=== PATIENT | female | born 1955 | race Caucasian/White ===

== ENCOUNTER → 2024-01-08 10:13 | Outpatient (REF) | payer MEDICARE, OTHER, SELFPAY ==
[2024-01-08 11:03] LABS: Blood Urea Nitrogen 11 mg/dl (7-17); Calcium 9.3 mg/dl (8.4-10.2); Carbon Dioxide 25 mmol/L (22-30); Chloride 101 mmol/L (98-107); Glucose 143 mg/dl (70-99); Iron 115 ug/dl (37-170); Potassium 4.6 mmol/L (3.5-5.1); Sodium 134 mmol/L (135-145); eGFR > 60.00
[2024-01-08 12:10] LABS: Glycohemoglobin (HgbA1c) 8.5 % (4.0-5.6)
== END ==
LOC: OLABN 10:13
PROVIDERS: ATTENDING PHYSICIAN Internal Medicine Geriatric Medicine
DX: E11.9 Type 2 diabetes mellitus without complications (principal); D64.9 Anemia, unspecified
CPT/HCPCS: 36415; 80048; 83036; 83540

== ENCOUNTER 2024-01-21 14:14 | Inpatient (IN) | payer MEDICARE, OTHER, SELFPAY ==
[2024-01-21 10:43] VITALS: BMI 32.3
[2024-01-21 10:48] VITALS: BP 142/60
--- NOTE | 2024-01-21 10:52 | ED.GENMED ---
History of Present Illness
General
Chief Complaint: Fall
Time Seen by Provider: 01/21/24 10:41
Travel History
Have you had any contact with someone who has COVID-19?: No
Do you have any symptoms of coronavirus? Fever > 100 degrees, chills, cough, shortness of breath, sore throat, loss of taste or smell, muscle aches, or headache?: No
History of Present Illness
History of Present Illness:
68-year-old female with history of mild dementia, prior stroke with resultant mild aphasia and right facial droop, atrial fibrillation on Eliquis, hypertension, hyperlipidemia, insulin-dependent diabetes, peripheral arterial disease status post
right BKA, and ovarian cancer in remission presents to the emergency department for evaluation of right hip pain after a fall. Was attempting to ambulate with a rollator and lost her balance, fell directly onto the buttock. She denies any head
strike or loss of consciousness. She did take her Eliquis this morning. Reporting severe pain
Past History
Past History
ED Past Medical History: Arrthythmia (Atrial fibrillation), CAD, Cancer (Ovarian cancer in 2007), CVA, GERD, Hypercholesterolemia, IDDM, AR, Psychiatric (Depression) and Other (Slight Dementia, DVT, PVD, UTI, Left foot ulcer, anemia, )
ED Past Surgical History: Cardiac (Stents x 4), Cholecystectomy, Gynecological (Hysterectomy), Orthopedic (Bilateral rotator Cuff, laminectomy, Right BKA) and Other (IVC filter)
Social History
Tobacco: Non-smoker
Alcohol: None
Drug: None
Personal:
Living: [facility] (Currently living with son until her apartment is ready in December 2017)
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
Review of Systems
Review of Systems
Allergies reviewed?: Yes
All Other Systems: ROS reviewed and negative except as documented in HPI and ROS
Phy Exam
Physical Exam
Physical Exam:
GEN: Well appearing, NAD, WDWN
Eyes: PERRLA, EOMs intact, no scleral icterus
HENT: NCAT, oral mucosa moist
Lungs: CTAB, no wheezes, rales, rhonchi, normal chest wall excursion
Cardiac: RRR, no M/R/G, no peripheral edema. Radial pulses 2+ bilat
Abdomen: S, NT, ND, NABS, no masses or hepatosplenomegaly
Neuro: AO x 3
MSK: No gross deformity or ecchymosis. Slight shortening of the right lower extremity however exam is limited due to presence of below the knee amputation
Skin: No rashes, petechiae. Normal color, no pallor or jaundice.
Psych: Calm, cooperative, proper hygiene
Course
Orders/Labs/Results
Orders:
Orders
01/21/24 10:50
CT Head W/o Iv Contrast Urgent
Comment:
Reason For Exam: fall on Eliquis
Fentanyl Citrate/Pf [Sublimaze] 50 mcg IV NOW STA
CR Hip - RT w/wo Pel 2-3 Vw* Urgent
Comment:
Reason For Exam: fall, R hip injury
Include a pelvis x-ray?: Yes
01/21/24 11:02
Complete Blood Count/With Diff Urgent
Comprehensive Metabolic Panel Urgent
01/21/24 11:58
HYDROmorphone [Dilaudid] 0.5 mg IV NOW STA
01/21/24 12:01
EKG [Electrocardiogram (*1)] Urgent
Reason for Study: PreOp
Abnormal Lab Results
01/21/24
11:02
RBC 4.18 L 10^6/uL
(4.20-5.40)
Hct 36.9 L %
(37.0-47.0)
Sodium 132 L mmol/L
(135-145)
Chloride 97 L mmol/L
(98-107)
Creatinine 0.4 L mg/dL
(0.6-1.0)
Glucose 220 H mg/dl
(70-99)
AST 38 H U/L
(14-36)
01/21/24 11:02
01/21/24 11:02
Vital Signs
Initial and Last Documented VS:
Initial Vital Signs
Temp Pulse Resp BP Pulse Ox
98.4 F 98 24 142/60 97
01/21/24 10:48 01/21/24 10:48 01/21/24 10:48 01/21/24 10:48 01/21/24 10:48
Last Documented Vital Signs
Temp Pulse Resp BP Pulse Ox
98.4 F 98 24 142/60 97
01/21/24 10:48 01/21/24 10:48 01/21/24 10:48 01/21/24 10:48 01/21/24 10:53
MDM/Problems Addressed
MDM/Problems Addressed:
Imaging identifies a comminuted inotrope fracture. Will be admitted to the hospital service for further management, orthopedics consulted for eventual operative intervention
*Critical Care Note
Total Time (30-74mins, 75-104mins- exclusive of procedures): Not Applicable
ED Attending Note
-
Portions of this chart may have been created with voice recognition software.� Occasional wrong word or��sound alike� substitutions may have occurred due to the inherent limitations of voice recognition software.
Discharge Plan
Departure
Patient Disposition: Admit
Date of Disposition: 01/21/24
Time of Disposition: 11:57
Admit to: Med/Surg
Presentation/result/management discussed w/ accepting MD/DO: Hospitalist
Discharge Problem:
Closed intertrochanteric fracture of right femur
Prescriptions:
No Action
acetaminophen 325 MG tablet
650 mg PO Q4HPRN MDD 3000 mg PRN (Reason: mild pain/fever>100.4)
Eliquis 5 MG tablet
5 mg PO BID@0830,1830
Patient Comments:
nitroglycerin 0.4 MG tablet, sublingual
0.4 mg sublingual [id number] PRN (Reason: chest pain)
diltiazem HCl 180 MG capsule,extended release 24hr
180 mg PO DAILY@829
pravastatin 40 mg Tablet
40 mg PO DAILY@1829
epinephrine 0.3 mg/0.3 mL Auto-Injector
0.3 mg IM DAILYPRN PRN (Reason: ANAPHYLAXIS)
insulin glargine 100 unit/mL Solution
13 unit SC DAILY@1829
magnesium hydroxide [Milk of Magnesia] 400 mg/5 mL Suspension
30 ml PO HSPRN PRN (Reason: lack of BM)
bisacodyl 10 mg Suppository
10 mg NJ [id number] PRN (Reason: lack of BM/MOM ineffective)
cholecalciferol (vitamin D3) 250 mcg (10,000 unit) Tablet
750 mcg PO QMONTH@829
Referrals:
Steve Carrasquillo MD [Family Provider] -
Interventions
Interventions:
*Risk Screen - Suicide Last Done: 01/21/24 10:48
*General Assessment Last Done: 01/21/24 10:48
*Neglect/Abuse Screening Last Done: 01/21/24 10:48
*ED COVID-19 Vaccine History Last Done: 01/21/24 10:48
ED- Neurological Assessment Last Done: 01/21/24 10:53
Discharge Date and Time
Print Language: LUXEMBOURGISH
[2024-01-21] MEDS: SUBLIMAZE 50 MCG IV (10:57)
[2024-01-21 11:26] LABS: % Basophils 0.5 % (0-2); % Eosinophils 1.5 % (0-6); % Immature Granulocytes 0.3 % (0-0.5); % Lymphocytes 34.4 % (20.5-51.1); % Monocytes 8.6 % (1.7-9.3); % Neutrophils 54.7 % (42.2-75.2); Absolute Eosinophils 0.1 10^3/uL (0-0.7); Absolute Lymphocytes 2.3 10^3/uL (1.2-3.4); Absolute Monocytes 0.6 10^3/uL (0.1-0.6); Absolute Neutrophils 3.7 10^3/uL (1.4-6.5); Hematocrit 36.9 % (37.0-47.0); Hemoglobin 12.2 g/dL (12.0-16.0); Mean Corp Hgb Conc. 33.1 g/dL (33.0-37.0); Mean Corpuscular Hgb 29.2 pg (27.0-31.0); Mean Corpuscular Volume 88.3 fL (81.0-99.0); Nucleated Red Blood Cells % 0 %; Platelet Count 273 10^3/uL (130-400); Red Blood Cell Count 4.18 10^6/uL (4.20-5.40); Red Cell Dist. Width 13.4 % (11.5-14.5); White Blood Cell Count 6.7 10^3/uL (4.8-10.8)
[2024-01-21 11:50] LABS: ALT (SGPT) 27 U/L (0-35); AST (SGOT) 38 U/L (14-36); Albumin 4.4 g/dl (3.5-5.0); Alkaline Phosphatase 54 U/L (38-126); Blood Urea Nitrogen 10 mg/dl (7-17); Calcium 9.4 mg/dl (8.4-10.2); Carbon Dioxide 26 mmol/L (22-30); Chloride 97 mmol/L (98-107); Estimated Creatinine Clearance 109 ml/min; Glucose 220 mg/dl (70-99); Potassium 4.6 mmol/L (3.5-5.1); Sodium 132 mmol/L (135-145); Total Bilirubin 0.5 mg/dl (0.2-1.3); Total Protein 7.1 g/dl (6.3-8.2); eGFR > 60.00
[2024-01-21] MEDS: DILAUDID 0.5 MG IV (12:33)
--- NOTE | 2024-01-21 12:40 | CON.ORTHO ---
Documented by User: Lyudmila Jeff PA-C 01/21/24 13:23
Consultation
-
Date/Time Consultation Requested: 01/21/2024; time unknown
Date/Time Consultation Performed: 01/21/2024; 1200
Requesting Provider: unknown
Performing Provider: Dr. Edson Delgado / Lyudmila Jeff PA-C
Reason for Consultation: Right hip fracture
Consultation - Orthopedics
History
Ms. Aguiar is a 68 year old female with PMH of a-fib on Eliquis s/p IVC filter, IDDM and CAD s/p right BKA, CVA, PA s/p stents x4, DVT and GERD. She is seen today for evaluation of a right hip fracture. She reports she lost her balance and fell
onto her right side. She was unable to get up off the ground. She presented to ED via EMS where x-rays revealed a right intertrochanteric femur fracture. She is resting comfortably in bed at present, but does endorse quite a but of pain about the
hip. She ambulates with the assistance of a acne or walker at baseline. She utilizes a prosthesis on her right limb. She has a history of a left hip CMN performed by Dr. Betts in 2020. She lives in independently living at [facility]. She denies any
known history of difficulty with anesthesia.
Allergies / Home Medications
Allergy/AdvReac Type Severity Reaction Status Date / Time
Penicillins Allergy Hives Verified 11/02/22 09:43
�Medication �Instructions �Recorded
acetaminophen 325 mg tablet 650 mg PO Q4HPRN PRN mild 10/26/20
pain/fever>100.4
apixaban 5 mg tablet (Eliquis) 5 mg PO BID@0830,1830 Blood clot 10/26/20
prevention/tx
nitroglycerin 0.4 mg sublingual 0.4 mg sublingual [id number] PRN 09/03/21
tablet chest pain
diltiazem HCl 180 mg 180 mg PO DAILY@0830 bp 02/13/22
capsule,extended release 24 hr
epinephrine 0.3 mg/0.3 mL 0.3 mg IM DAILYPRN PRN ANAPHYLAXIS 10/30/22
injection, auto-injector
pravastatin 40 mg tablet 40 mg PO DAILY@182910/30/22
bisacodyl 10 mg rectal suppository 10 mg MA [id number] PRN lack of 01/21/24
BM/MOM ineffective
cholecalciferol (vitamin D3) 250 750 mcg PO QMONTH@82901/21/24
mcg (10,000 unit) tablet
insulin glargine 100 unit/mL 13 unit SC DAILY@182901/21/24
subcutaneous solution
magnesium hydroxide 400 mg/5 mL 30 ml PO HSPRN PRN lack of BM 01/21/24
oral suspension (Milk of Magnesia)
Vital Signs / Lab Results
Temp Pulse Resp BP Pulse Ox
98.4 F 98 24 142/60 97
01/21/24 10:48 01/21/24 10:48 01/21/24 10:48 01/21/24 10:48 01/21/24 10:53
01/21/24 11:02
01/21/24 11:02
XR Right hip 01/21/2024 IMPRESSION:
Fracture of the intertrochanteric right proximal femur.
Physical Exam:
General: pleasant female in NAD, AAx3
Head: atraumatic, normocephalic
Eyes: sclera anicteric
Ears: normal hearing
Heart: no edema
Lungs: no audible wheezing
Right hip: no obvious erythema, ecchymosis or lesions about the hip. BKA of right lower extremity. ROM deferred secondary to known fracture. Positive log roll. Sensation intact to light touch.
Assessment / Plan
Right intertrochanteric femur fracture
--Unfortunately, Lori sustained a right intertrochanteric femur fracture in her fall. We recommend open reduction internal fixation of her fracture. The risks, benefits, alternatives, recovery process and potential complications were discussed in
detail. She would like to proceed with surgical intervention of her fracture. Surgical and blood consent signed and scanned into patient's chart. Paper copy at OR desk. We will plan to proceed with surgery on Saturday (01/24/2024) after Eliquis washout
under the direction of Dr. Delgado. We appreciate the assistance of medicine and cardiology for surgical clearance.
--NWB to RLE until surgery.
--NPO after midnight 01/23 for OR.
--Pain management per primary.
--T+S ordered.
--Orthopedics will continue to follow along.

Documented by User: Edson Delgado MD 01/21/24 15:03
Consultation - Orthopedics
History
Patient seen and evaluated by Edson Delgado MD. Risks, benefits, and possible complications of surgical treatment have been discussed. Patient questions have been answered. Patient has tentatively been scheduled for right hip gamma nail on
January 23 pending medical and cardiac clearance. Her case is particularly challenging due to the fact that she does not have a right foot for traction due to her previous BKA. We will plan placing a traction pin in the right proximal tibia
which will be used to aid in fracture reduction for placement of gamma nail. (Ms. Aguiar is a 68 year old female with PMH of a-fib on Eliquis s/p IVC filter, IDDM and CAD s/p right BKA, CVA, PA s/p stents x4, DVT and GERD. She is seen today for
evaluation of a right hip fracture. She reports she lost her balance and fell onto her right side. She was unable to get up off the ground. She presented to ED via EMS where x-rays revealed a right intertrochanteric femur fracture. She is resting
comfortably in bed at present, but does endorse quite a but of pain about the hip. She ambulates with the assistance of a acne or walker at baseline. She utilizes a prosthesis on her right limb. She has a history of a left hip CMN performed by "Farida"Roxane in 2020. She lives in independently living at [facility]. She denies any known history of difficulty with anesthesia.
--- NOTE | 2024-01-21 13:14 | HPS.HSE ---
Family Physician
-
Family Physician: Steve Carrasquillo
Chief Complaint
-
Fall, right hip pain
History of Present Illness
68-year-old female from [facility] who states she was attempting to ambulate with a rollator and lost her balance falling onto her buttocks she denies LOC. She is complaining of right hip pain after fall. She is on Eliquis for A-fib and did
take this a.m. 01/21/2024. She has been using a rollator for 3 years since her right BKA secondary to PVD/DM2/gangrene. She denies headache, dizziness, blurred vision, fever, chills, chest pain, palpitations, shortness of breath, cough, abdominal
pain, nausea, vomiting, diarrhea, urinary symptoms. She currently has a right lower extremity leg prosthesis which we will removed due to right thigh pain and swelling secondary to femur fracture.
PMH paroxysmal A-fib, CAD/NH,/cardiac stents x 4 CVA with mild aphasia and right facial droop 2019,, ovarian cancer 2008, GERD, HLD, DM2, depression, dementia�mild, DVT/IVC filter primary thrombophilia, PVD, UTIs, history left foot ulcer, anemia,
chronic ambulatory dysfunction secondary to right BKA 2020 wears prosthetic leg
Medical History
Past Medical History
Past Medical History: Reports Other
Additional Past Medical History:
paroxysmal A-fib
CAD/NH,/cardiac stents x 4
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
ovarian cancer 2008
GERD
HLD
DM2
depression
dementia�mild
Primary thrombophilia patient unsure which type
DVT/IVC filter
PVD
history left foot ulcer
chronic ambulatory dysfunction secondary to right BKA 2020(gangrene/DM2/PVD) wears prosthetic leg
UTIs
anemia
Past Surgical History: Reports Other
Additional Past Surgical History:
Cardiac stents x 4
Cholecystectomy
Hysterectomy
Bilateral rotator cuff repair
Laminectomy
Right BKA secondary to PVD/gangrene/DM2 2020
IVC filter for DVT
Social History
Tobacco: Non-smoker
Alcohol: None
Drug: None
Personal:
Living: Assisted Living ([facility]
Employment: Retired
Family History
Family History: Other (Mother unsure diabetes father age 60 [place] son age 42 sudden )
Allergies / Home Medications
Allergies reflects when Allergies were last updated in [facility].
Home Medications with original date entered in [facility]
Allergy/Medication List:
Allergies
Allergy/AdvReac Type Severity Reaction Status Date / Time
Penicillins Allergy Hives Verified 11/02/22 09:43
Home Medications
acetaminophen 325 mg tablet 650 mg PO Q4HPRN PRN mild pain/fever>100.4 10/26/20
apixaban 5 mg tablet (Eliquis) 5 mg PO BID@0830,1830 Blood clot prevention/tx 10/26/20
nitroglycerin 0.4 mg sublingual tablet 0.4 mg sublingual [id number] PRN chest pain 09/03/21
diltiazem HCl 180 mg capsule,extended release 24 hr 180 mg PO DAILY@0830 Arrhythmia 02/13/22
epinephrine 0.3 mg/0.3 mL injection, auto-injector 0.3 mg IM DAILYPRN PRN ANAPHYLAXIS 10/30/22
pravastatin 40 mg tablet 40 mg PO DAILY@1830 High Cholesterol 10/30/22
bisacodyl 10 mg rectal suppository 10 mg NV [id number] PRN lack of BM/MOM ineffective 01/21/24
cholecalciferol (vitamin D3) 250 mcg (10,000 unit) tablet 750 mcg PO QMONTH@0830 Supplement 01/21/24
insulin glargine 100 unit/mL subcutaneous solution 13 unit SC DAILY@1830 Diabetes 01/21/24
magnesium hydroxide 400 mg/5 mL oral suspension (Milk of Magnesia) 30 ml PO HSPRN PRN lack of BM 01/21/24
Review of Systems
-
History Source: Patient
A 12 point ROS was completed and negative except as noted: Yes
Constitutional: Reports Other (Mild dementia, currently oriented to name, place of living but not year tends to ramble); Denies Fever or Fatigue
EENT: Denies Sore Throat or Runny Nose
Respiratory: Denies Cough or Trouble Breathing
Cardiac: Denies Chest Pain, Diaphoresis, Palpitations or Syncope
Abdomen/GI: Denies Abdominal Pain, Nausea, Vomiting, Diarrhea or Constipated
: Denies Dysuria, Frequency, Flank Pain, Incontinence or Difficulty Voiding
Musculoskeletal: Reports Joint Pain (Right upper lateral thigh), Joint Swelling (Right upper lateral thigh) and Edema (+1 left lower extremity, Hx right BKA)
Skin: Denies Itching or Rash
Neurological: Denies Dizzy, Headache or Weakness
Endocrine: Reports No Symptoms
Hematologic/Lymphatic: Reports No Symptoms
Psych: Reports Calm
Physical Exam
Vital Signs
Vital Signs
Temp Pulse Resp BP Pulse Ox
98.4 F 98 24 142/60 97
01/21/24 10:48 01/21/24 10:48 01/21/24 10:48 01/21/24 10:48 01/21/24 10:53
Physical Exam
General: Conversant; No Fever or Chills
HEENT: NormoCephalic, Anicteric, PERRLA, Trezevant Conjunctivae, No Ptosis and Other (Dry oral mucosa, chronic right facial droop from prior CVA)
Respiratory: Clear; No Wheezes, Rales or Rhonchi
Cardiac: S1/S2, Irregular Rhythm (A-fib) and Peripheral Edema (Left lower extremity +1, right BKA); No Murmur, Rub or Gallop
Breast: Deferred by me
GI: Soft, Non Tender, Non Distended, Normal Bowel Sounds and No Hepatosplenomegaly
Genito-urinary: Deferred by me
Musculoskeletal: No Clubbing, No Cyanosis, Edema, Left Lower Extremity (+1 edema sensation intact, +2 dorsal pedal pulse no ulcerations) and Edema, Right Lower Extremity (Right BKA, tenderness and swelling right upper and lateral thigh secondary to
current fracture); No Edema, Left Upper Extremity or Edema, Right Upper Extremity
Skin: Warm and Dry; No Rash or Jaundice
Neuro: Awake, Alert, Oriented (To name, place of living, [facility] some of past medical history but not year tends to ramble with word jargon), No Sensory Deficits and Facial Droop (Chronic right from prior CVA 2019); No Slurred Speech or
Tremors
Psych: Calm
Laboratory Results
-
01/21/24 11:02
01/21/24 11:02
Laboratory Results
Total Bilirubin 0.5 mg/dl (0.2-1.3) 01/21/24 11:02
AST 38 U/L (14-36) H 01/21/24 11:02
ALT 27 U/L (0-35) 01/21/24 11:02
Alkaline Phosphatase 54 U/L (38-126) 01/21/24 11:02
Data Reviewed
-
Diagnostic Radiology: Report Reviewed by me
Lab Data: Labs Reviewed by me
Impression/Plan
-
Impression/plan:
Admit to telemetry
#Mechanical fall with right proximal femur fracture
-Hold Eliquis last dose was 01/21/2024 in a.m.
-Consult Rachel Delgado aware
-Pain control, ice, bowel regimen(last bowel movement this a.m. 01/21/2024)
-Fall precautions
-Continue vitamin D3
-Surgery planned for 01/24/[address] Delgado
N.p.o. after midnight 01/23/2024
-PT/OT/case management
Right hip and pelvis x-ray: Fracture of the intertrochanteric right proximal femur
CT head: No acute intracranial abnormality. Mild chronic small vessel disease
#Acute on chronic ambulatory dysfunction 11/22 right BKA 2020
Using rollator at baseline with right leg prosthesis
-PT to evaluate for alternative ambulatory device
# Primary thrombophilia patient unsure which type
#DVT/IVC filter unsure year
#Hx PVD
#Mild dementia
Oriented to name place of living but not year tends to ramble with word jargon
-Supportive care
-Fall precautions
#A-fib paroxysmal
-Continue diltiazem 180 mg daily
-HOLD Eliquis 5 mg twice daily last dose 01/21/2020 4 AM
EKG: A-fib 78 bpm, QTc 433 MS no change from October 2022
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
#DM2 with hyperglycemia
BS 220, check HgbA1c
-Accu-Cheks with SSI low
-Continue insulin glargine 13 units subcu at 1830
#GERD
-No reported meds
#HLD
-Continue pravastatin
#CAD/NH
#Cardiac stents x 4
-Continue pravastatin 40 mg daily
#Ischemic cardiomyopathy
Follows with [facility]
check Echo
consult [facility] - preop eval
2D echo 02/18/2019: EF 45 to 50%, mild reduced LVSF, mild to moderate MR
#Depression hx
-No reported meds
#Ovarian cancer 2008 in remission
DVT prophylaxis
Hold current Eliquis, will need DVT prophylaxis resume post surgery given history of A-fib/primary thrombophilia/DVT in the past
DNR per patient and living will on chart
[2024-01-21] MEDS: ZOFRAN 4 MG IV (14:22)
--- NOTE | 2024-01-21 14:45 | W.PN.UPDATE ---
Update Note
Progress Note Update
This note is in addition to SENIOR CLERK's note
I saw and examined the patient.
The SENIOR CLERK or PA's note was reviewed and I agree with the note.
Comment:
68-year-old female with past medical history of paroxysmal atrial fibrillation, CAD/NH status postcardiac stents, embolic CVA, GERD, diabetes mellitus, hyperlipidemia, depression, dementia, primary thrombophillia, PVD, DVT, chronic ambulatory
dysfunction with right BKA came to the hospital from [facility] after fall with right femur fracture. Patient took Eliquis this morning. Plan for OR per orthopedics on 01/23. Hold Eliquis. Pain control. Zofran for nausea. Check echo. Echo
from 2019 with EF 45 to 50%. Consult cardiology for risk stratification. EKG currently with A-fib, rate controlled.Mild hyponatremia, monitor.
General: Conversant
HEENT: Normocephalic, Anicteric
Respiratory: Clear; No Wheezes, Rales or Rhonchi
Cardiac: S1/S2, Irregular Rhythm (A-fib) and Peripheral Edema (Left lower extremity +1, right BKA)
GI: Soft, Non Tender, Non Distended, Normal Bowel Sounds
Genito-urinary: no [place]
Musculoskeletal: Edema, Right Lower Extremity (Right BKA)
Neuro: Awake, Alert, Oriented; No Slurred Speech or Tremors
Psych: Calm
I spent a total of 78 minutes with the patient or on the floor. More than 50% of this time involved counseling and coordination of care.
--- NOTE | 2024-01-21 15:07 | CON.CAR ---
Addendum entered and electronically signed by Veronica Molina MD 01/21/24 16:15:
I saw and examined the patient.
The ASSISTANT REAL ESTATE MANAGER's note was reviewed and I agree with the note.
Comment: 68-year-old female (known to Dr. Sheffield, her primary management consulting, last seen in the office 06/2019), with CAD s/p PCI to proximal and mid LAD and LONDON to ramus intermedius (on 10/17/16), ischemic cardiomyopathy (LVEF 40-45%), right BKA,
permanent atrial fibrillation (on Eliquis), mild to moderate mitral regurgitation, left MCA CVA status-post IAT (11/29/17) with residual mild dysarthria, hyperlipidemia, and type II diabetes presented from [facility] after a fall.She denies
syncope, sob and chest pain.Only complaint currently is severe hip pain. On exam, she is lying completely flat without any dyspnea, irrreg irreg no m/r/g, lungs CTA b/l no w/r/r. Right prosthetic and lle without edema. She is in mild distress.
ECG with rate controlled rib. NSQIP preop risk assessment in detail below. This underestimates her thromboembolic risk and I will start a heparin gtt while she is off Eliquis as this risk is HIGH. Otherwise, no CI to proceeding to the planned
surgery. She is not in CHF. She has cp. Will continue remaining medicaitons for her chornic issues of CAD, iCMY and prior CVA. It is unclear why bb was stopped for ccb but this can be addressed in the post op setting.
Original Note:
Consultation
Consultation Request
Date/Time Consultation Requested: 01/21/24 14:00
Date/Time Consultation Performed: 01/21/24 14:45
Requesting Provider: MATTHIEU Marcos
Performing Provider: MATTHIEU Rooney for Dr. Molina
Reason for Consultation: Pre-op risk assessment
Medical History
-
Chief Complaint: Fall
History of Present Illness:
Dang Aguiar is a 68-year-old female (known to Dr. Prema Anne, her primary management consulting, last seen in the office 06/2019), with coronary artery disease status-post LONDON to proximal and mid LAD and LONDON to ramus intermedius (on 10/17/16),
ischemic cardiomyopathy (LVEF 40-45%), right BKA, permanent atrial fibrillation (on Eliquis), mild to moderate mitral regurgitation, left MCA CVA status-post IAT (11/29/17) with residual mild dysarthria, hyperlipidemia, and type II diabetes presented
from [facility] after a fall. She denies syncope. Cardiology was consulted for preop risk assessment. This HPI is limited due to the patient's underlying dementia.
Past Medical History
Past Medical History: Arrhythmias (perm atrial fibrillation), CAD, CHF (ICM), Hypercholesterolemia, IDDM and Other (Right BKA)
Past Surgical History: Cholecystectomy
Social History
Tobacco: Non-Smoker
Alcohol: None
Drug: None
Living: [facility]
Employment: Retired
Family History
Family History: Unable to Obtain
Allergies / Home Medications
Allergy/AdvReac Type Severity Reaction Status Date / Time
Penicillins Allergy Hives Verified 11/02/22 09:43
�Medication �Instructions �Recorded �Confirmed �Type
acetaminophen 325 mg tablet 650 mg PO Q4HPRN PRN mild 10/26/20 01/21/24 History
pain/fever>100.4
apixaban 5 mg tablet (Eliquis) 5 mg PO BID@0830,1830 Blood clot 10/26/20 01/21/24 History
prevention/tx
nitroglycerin 0.4 mg sublingual 0.4 mg sublingual [id number] PRN 09/03/21 01/21/24 History
tablet chest pain
diltiazem HCl 180 mg 180 mg PO DAILY@0830 Arrhythmia 02/13/22 01/21/24 History
capsule,extended release 24 hr
epinephrine 0.3 mg/0.3 mL 0.3 mg IM DAILYPRN PRN ANAPHYLAXIS 10/30/22 01/21/24 History
injection, auto-injector
pravastatin 40 mg tablet 40 mg PO DAILY@1830 High 10/30/22 01/21/24 History
Cholesterol
bisacodyl 10 mg rectal suppository 10 mg MS [id number] PRN lack of 01/21/24 01/21/24 History
BM/MOM ineffective
cholecalciferol (vitamin D3) 250 750 mcg PO QMONTH@0830 Supplement 01/21/24 01/21/24 History
mcg (10,000 unit) tablet
insulin glargine 100 unit/mL 13 unit SC DAILY@1830 Diabetes 01/21/24 01/21/24 History
subcutaneous solution
magnesium hydroxide 400 mg/5 mL 30 ml PO HSPRN PRN lack of BM 01/21/24 01/21/24 History
oral suspension (Milk of Magnesia)
Review of Systems
-
Unable to obtain full review of systems at this time due to: Dementia
History Source: Patient
All other systems: Negative unless noted
Musculoskeletal: Joint Pain and Muscle Pain
Physical Exam
Vital Signs
Temp Pulse Resp BP Pulse Ox
98.4 F 98 24 142/60 97
01/21/24 10:48 01/21/24 10:48 01/21/24 10:48 01/21/24 10:48 01/21/24 10:53
Lab Results
01/21/24 11:02
01/21/24 11:02
Physical Exam
General: Well Developed, Well Nourished, No Apparent Distress and Comfortable
HEENT: Normocephalic, Anicteric and Moist Mucous Membranes
Respiratory: Clear and Non Labored Respirations
Cardiac: S1/S2 and Irregular Rhythm; Negative Peripheral Edema
Breast: Deferred by me
GI: Soft, Non Tender, Non Distended and Normal Bowel Sounds
Rectal: Deferred by Provider
Genito-urinary: No Costovertebral Tender
Musculoskeletal: No Clubbing, No Cyanosis and No Edema
Skin: Warm and Dry
Neuro: AO x 3
Hematologic/Lymphatic: No Lymphadenopathy
Psych: Calm
Impression / Plan
-
Pre-op risk assessment - Gamma Nail (Right hip fracture) on 01/24/24
-Denies CP
-EKG stable
-Update TTE
ICM (EF 45-50%), chronic
-Denies shortness of breath
-No ОЛЬГА or ARB in the past due to hypotension
-Her metoprolol succinate was discontinued and she is now on diltiazem which is not ideal
-Update TTE
CAD
-Stable without chest pain
-LONDON to proximal and mid LAD and LONDON to ramus intermedius (on 10/17/16)
-LDL 63 on pravastatin 40mg
Atrial fibrillation, permanent
-Rate controlled on diltiazem (not ideal given cardiomyopathy, Dr Sheffield had her on Toprol XL in the past)
-Oral Anticoagulation: Eliquis 5mg BID, last dose 01/21/24 am, on hold for OR, start heparin gtt this evening
-[id number]: score 7 (Heart failure Diabetes Mellitus, prior Stroke/TIA, Vascular disease, age 65-74, female gender)
Mild to moderate mitral regurgitation (2019)
Prior CVA
HLD
Type II DM, Hgba1c 8.5%
Right BKA
Dementia, chronic
Data Reviewed
-
EKG: Report Reviewed by me (Atrial fibrillation, inferior T wave abnormality, rate 78)
Radiology: Report Reviewed by me (Hip XR: Fracture of the intertrochanteric right proximal femur.)
CT Scan: Report Reviewed by me (Head: No acute intracranial abnormality. Stable chronic findings.)
Medical Tests (Nuc Med, Echo etc): Report Reviewed by me (Echo as above)
Labs: Labs Reviewed by me
Old Records: Reviewed
[2024-01-21 16:00] VITALS: BP 126/64
[2024-01-21 17:48] VITALS: BMI 32.3
[2024-01-21] MEDS: PERCOCET 5/325 1 TABLET PO (18:03)
[2024-01-21 18:07] LABS: Glucose - Point of Care 241 mg/dl (70-99)
[2024-01-21] MEDS: PRAVACHOL 40 MG PO (18:34)
[2024-01-21] MEDS: LANTUS 0.130000000000000004 UNITS SC (18:34)
[2024-01-21] MEDS: NOVOLOG FLEXPEN-LOW RESISTANCE 2 UNITS SC (18:34)
[2024-01-21 19:05] LABS: APTT 33.9 Sec (23.4-35.0)
[2024-01-21] MEDS: HEPARIN 25000 UNITS/250 ML IV (19:58)
[2024-01-21] MEDS: SENOKOT-S 1 TABLET PO (19:59)
[2024-01-21 20:42] VITALS: BP 113/56
[2024-01-21 22:20] LABS: Glucose - Point of Care 226 mg/dl (70-99)
[2024-01-21 23:43] VITALS: BP 109/53
[2024-01-22] MEDS: PERCOCET 5/325 1 TABLET PO (00:26)
[2024-01-22 02:29] LABS: % Basophils 0.2 % (0-2); % Eosinophils 0.1 % (0-6); % Immature Granulocytes 0.4 % (0-0.5); % Lymphocytes 17.7 % (20.5-51.1); % Monocytes 11.7 % (1.7-9.3); % Neutrophils 69.9 % (42.2-75.2); Absolute Lymphocytes 1.7 10^3/uL (1.2-3.4); Absolute Monocytes 1.2 10^3/uL (0.1-0.6); Absolute Neutrophils 6.9 10^3/uL (1.4-6.5); Hematocrit 29.7 % (37.0-47.0); Hemoglobin 10.3 g/dL (12.0-16.0); Mean Corp Hgb Conc. 34.7 g/dL (33.0-37.0); Mean Corpuscular Hgb 29.9 pg (27.0-31.0); Mean Corpuscular Volume 86.1 fL (81.0-99.0); Mean Platelet Volume 9.6 fL (7.4-10.4); Nucleated Red Blood Cells % 0 %; Platelet Count 225 10^3/uL (130-400); Red Blood Cell Count 3.45 10^6/uL (4.20-5.40); Red Cell Dist. Width 13.5 % (11.5-14.5); White Blood Cell Count 9.8 10^3/uL (4.8-10.8)
[2024-01-22 02:36] LABS: APTT 105.7 Sec (23.4-35.0)
[2024-01-22 03:33] LABS: Blood Urea Nitrogen 11 mg/dl (7-17); Calcium 8.7 mg/dl (8.4-10.2); Carbon Dioxide 27 mmol/L (22-30); Chloride 98 mmol/L (98-107); Estimated Creatinine Clearance 109 ml/min; Glucose 159 mg/dl (70-99); Potassium 4.3 mmol/L (3.5-5.1); Sodium 131 mmol/L (135-145); eGFR > 60.00
[2024-01-22 04:04] VITALS: BP 101/46
[2024-01-22 04:22] LABS: Hepatitis C Antibody Negative (Negative)
[2024-01-22 07:30] VITALS: BP 128/61
--- NOTE | 2024-01-22 07:47 | W.PN.UPDATE ---
Update Note
Progress Note Update
Lori is resting comfortably in bed this morning. She reports her symptoms are much improved today. She has no questions or concerns at this time.
Directed exam of the right lower extremity reveals BKA without signs of lesions or skin breakdown. Mild tenderness to palpation about the right hip. Thigh soft and compressible. Sensation intact to light touch.
Right intertrochanteric femur fracture
--Plan to proceed with OR Tuesday 01/23 under the direction of Dr. Delgado after Eliquis washout. No contraindication to proceed with surgery per cardiology. They have started heparin given her significant medical history.
--NPO after midnight 01/23 for OR.
--NWB to RLE until surgery.
--Hgb 10.3, continue to monitor.
--Continue pain control per primary. Ice for edema and pain control.
--Antibiotics ordered to OR.
--Orthopedics will continue to follow along.
[2024-01-22] MEDS: PERCOCET 5/325 2 TABLET PO ×2 (08:34→12:34)
[2024-01-22] MEDS: SENOKOT-S 1 TABLET PO ×2 (08:35→22:31)
[2024-01-22] MEDS: CARDIZEM CD 180 MG PO (08:35)
--- NOTE | 2024-01-22 08:55 | W.PN.CD ---
Today's Communication / Plan
-
stable overnight
wean O2 if tolerated
continue IV heparin while awaiting surgry
update echo peniding
Impression / Plan
-
68-year-old female (known to Dr. Sheffield, her primary media services coordinator, last seen in the office 06/2019), with CAD s/p PCI to proximal and mid LAD and LONDON to ramus intermedius (on 10/17/16), ischemic cardiomyopathy (LVEF 40-45%), right BKA, permanent
atrial fibrillation (on Eliquis), mild to moderate mitral regurgitation, left MCA CVA status-post IAT (11/29/17) with residual mild dysarthria, hyperlipidemia, and type II diabetes s/p fall and hip fracture
.
Pre-op risk assessment - Gamma Nail (Right hip fracture) on 01/24/24
- lucila melo as noted
- cotninue IV heaprin reop
ICM (EF 45-50%), chronic
-Denies shortness of breath
-No ОЛЬГА or ARB in the past due to hypotension
-Her metoprolol succinate was discontinued and she is now on diltiazem which is not ideal can be addressed post op or in follow up
-Update TTE
CAD
-Stable without chest pain
-LONDON to proximal and mid LAD and LONDON to ramus intermedius (on 10/17/16)
Atrial fibrillation, permanent
-Rate controlled on diltiazem
-Oral Anticoagulation: Eliquis 5mg BID, last dose 01/21/24 am, on hold for OR, Now on iV heaprin
-[id number]: score 7 (Heart failure Diabetes Mellitus, prior Stroke/TIA, Vascular disease, age 65-74, female gender)
Mild to moderate mitral regurgitation (2019)
Prior CVA
HLD
Type II DM, Hgba1c 8.5%
Right BKA
Dementia, chronic
Physical Exam
Vital Signs/Labs
Vital Signs
Temp Pulse Resp BP Pulse Ox
97.9 F 95 16 128/61 98
01/22/24 07:30 01/22/24 08:35 01/22/24 07:30 01/22/24 08:35 01/22/24 07:30
01/21/24 01/22/24 01/23/24
06:59 06:59 06:59
Actual Weight 99 kg
01/22/24 02:02
01/22/24 02:02
APTT 105.7 Sec (23.4-35.0) H 01/22/24 02:02
Physical Exam
Constitutional: No acute distress
Cardiovascular: Rhythm/rate is irregular
Respiratory: Wheeze Absent and Rhonchi Absent
GI: Soft and Non tender
Neuro/Psych: Alert
Data Reviewed
-
Date of Service: January 22, 2024
Medical Decision Making: Reviewed Test Results and Review of Case with other Provider (nurse)
EKG: Report Reviewed by me
Medical Tests (PFT, Pathology etc): Report Reviewed by me
Labs: Labs Reviewed by me
[2024-01-22 09:21] LABS: Glucose - Point of Care 119 mg/dl (70-99)
[2024-01-22 09:48] LABS: APTT 142.8 Sec (23.4-35.0)
[2024-01-22] MEDS: NOVOLOG FLEXPEN-LOW RESISTANCE SC ×3 (10:06→17:28)
--- NOTE | 2024-01-22 10:08 | PTOTSP ---
Chart reviewed and spoke with RN. Patient awaiting surgical intervention for right femur fracture after Eliquis washout. Plan is for OR on 01/23.
Not appropriate for PT intervention at this time and will discharge from caseload. Please re-consult after intervention.
[2024-01-22 11:00] VITALS: BP 129/64
--- NOTE | 2024-01-22 11:39 | W.PN.HOSP.TC ---
Today's Communication/Plan
-
Pain control
Bowel regimen
OR Saturday
Continue with heparin drip
Assessment / Plan
Assessment / Plan
General: Conversant
HEENT: Normocephalic, Anicteric
Respiratory: Clear; No Wheezes, Rales or Rhonchi
Cardiac: S1/S2, Irregular Rhythm (A-fib) and Peripheral Edema (Left lower extremity +1, right BKA)
GI: Soft, Non Tender, Non Distended, Normal Bowel Sounds
Genito-urinary: no livingston
Musculoskeletal: Edema, Right Lower Extremity (Right BKA)
Neuro: Awake, Alert, Oriented; No Slurred Speech or Tremors
Psych: Calm
#Mechanical fall with right proximal femur fracture
-Hold Eliquis last dose was 01/21/2024 in a.m.
-Consult Rachel Delgado aware
-Pain control, ice, bowel regimen(last bowel movement this a.m. 01/21/2024)
-Fall precautions
-Continue vitamin D3
-Surgery planned for 01/24/[address] Delgado
N.p.o. after midnight 01/23/2024
-PT/OT/case management
Right hip and pelvis x-ray: Fracture of the intertrochanteric right proximal femur
CT head: No acute intracranial abnormality. Mild chronic small vessel disease
#Acute on chronic ambulatory dysfunction 11/22 right BKA 2020
Using rollator at baseline with right leg prosthesis
-PT to evaluate for alternative ambulatory device
# Acute hypoxic respiratory insufficiency likely secondary atelectasis setting of pain
Wean oxygen as tolerated
# Primary thrombophilia patient unsure which type
#DVT/IVC filter unsure year
#Hx PVD
#Mild dementia
Oriented to name place of living but not year tends to ramble with word jargon
-Supportive care
-Fall precautions
#A-fib paroxysmal
-Continue diltiazem 180 mg daily
-HOLD Eliquis 5 mg twice daily last dose 01/21/2020 4 AM
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
Per Francine patient does become intermittently confused post stroke
#DM2 with hyperglycemia
BS 220, check HgbA1c
-Accu-Cheks with SSI low
-Continue insulin glargine 13 units subcu at 1830
#GERD
-No reported meds
#HLD
-Continue pravastatin
#CAD/CT
#Cardiac stents x 4
-Continue pravastatin 40 mg daily
#Ischemic cardiomyopathy
Follows with [facility] cardiology
Echo EF of 55 to 60%. Normal biventricular size and function. MR has improved from mild-moderate to trace.
#Depression hx
-No reported meds
#Ovarian cancer 2007 in remission
DVT prophylaxis
Hold current Eliquis, will need DVT prophylaxis resume post surgery given history of A-fib/primary thrombophilia/DVT in the past
DNR confirmed with Francine over the phone
Updated patient [id number] Francine over the phone.
Anticipated Discharge: > 48 hours
Subjective/Interval History
-
Date of Service: January 22, 2024
States of pain
Remains confused
Objective Data
-
Labs:
Laboratory Results
01/22/24 01/22/24 01/22/24
02:02 09:28 17:00
WBC 9.8
Hgb 10.3 L
Hct 29.7 L
Plt Count 225
APTT 105.7 H 142.8 H Pending
Sodium 131 L
Potassium 4.3
Chloride 98
Carbon Dioxide 27
BUN 11
Creatinine 0.4 L
Glucose 159 H
Calcium 8.7
Vital Signs:
Vital Signs
Temp Pulse Resp BP Pulse Ox
97.9 F 95 16 128/61 98
01/22/24 07:30 01/22/24 08:35 01/22/24 07:30 01/22/24 08:35 01/22/24 07:30
I&O
01/21/24 01/22/24 01/23/24
06:59 06:59 06:59
Intake Total 240 / 240
Balance 240 / 240
Data Reviewed
-
Total Time Spent with Patient (in minutes): 55
[2024-01-22 12:10] LABS: Glucose - Point of Care 111 mg/dl (70-99)
[2024-01-22 15:00] VITALS: BP 110/57
--- NOTE | 2024-01-22 16:13 | CM ---
Alert awake forgetful patient who lives group home at [facility]. She is assisted in all activities of daily living.She wishes to return to [facility] at tx.
[facility]
PCP Dr Carrasquillo
PLAN Return to [facility] group home
[2024-01-22 17:05] LABS: Glucose - Point of Care 120 mg/dl (70-99)
[2024-01-22 17:16] LABS: APTT 66.5 Sec (23.4-35.0)
[2024-01-22] MEDS: LANTUS 0.130000000000000004 UNITS SC (17:28)
[2024-01-22] MEDS: PRAVACHOL 40 MG PO (17:29)
[2024-01-22 19:20] VITALS: BP 116/67
[2024-01-22 21:22] LABS: Glucose - Point of Care 122 mg/dl (70-99)
[2024-01-22] MEDS: HEPARIN 25000 UNITS/250 ML IV (22:30)
[2024-01-22 23:34] VITALS: BP 112/59
[2024-01-22 23:54] LABS: APTT 80.8 Sec (23.4-35.0)
[2024-01-23 03:31] VITALS: BP 121/65
[2024-01-23] MEDS: PERCOCET 5/325 1 TABLET PO ×2 (05:18→22:12)
[2024-01-23 05:45] LABS: % Basophils 0.5 % (0-2); % Eosinophils 0.7 % (0-6); % Immature Granulocytes 0.4 % (0-0.5); % Lymphocytes 16.8 % (20.5-51.1); % Monocytes 11.3 % (1.7-9.3); % Neutrophils 70.3 % (42.2-75.2); Absolute Eosinophils 0.1 10^3/uL (0-0.7); Absolute Lymphocytes 1.4 10^3/uL (1.2-3.4); Absolute Monocytes 0.9 10^3/uL (0.1-0.6); Absolute Neutrophils 5.6 10^3/uL (1.4-6.5); Hematocrit 30.6 % (37.0-47.0); Hemoglobin 10.4 g/dL (12.0-16.0); Mean Corpuscular Hgb 29.7 pg (27.0-31.0); Mean Corpuscular Volume 87.4 fL (81.0-99.0); Mean Platelet Volume 9.8 fL (7.4-10.4); Nucleated Red Blood Cells % 0 %; Platelet Count 211 10^3/uL (130-400); Red Cell Dist. Width 13.6 % (11.5-14.5)
[2024-01-23 06:00] VITALS: BMI 29.5
[2024-01-23 06:03] LABS: APTT 62.5 Sec (23.4-35.0)
[2024-01-23 06:16] LABS: Blood Urea Nitrogen 11 mg/dl (7-17); Calcium 8.6 mg/dl (8.4-10.2); Carbon Dioxide 27 mmol/L (22-30); Chloride 96 mmol/L (98-107); Estimated Creatinine Clearance 109 ml/min; Glucose 134 mg/dl (70-99); Potassium 4.2 mmol/L (3.5-5.1); Sodium 130 mmol/L (135-145); eGFR > 60.00
[2024-01-23 07:00] VITALS: BP 110/62
--- NOTE | 2024-01-23 07:41 | W.PN.UPDATE ---
Update Note
Progress Note Update
Plan is for open reduction internal fixation right intertrochanteric fracture January 24, [address] Delgado. Continue to hold Eliquis. Stop heparin drip tonight at midnight. Discussed with Muna her nurse. N.p.o. after midnight and Ancef
on-call to operating room. Surgical location marked and surgery/blood consents signed.
[2024-01-23 08:21] LABS: Glucose - Point of Care 129 mg/dl (70-99)
[2024-01-23] MEDS: NOVOLOG FLEXPEN-LOW RESISTANCE SC ×3 (08:56→16:31)
[2024-01-23] MEDS: SENOKOT-S 1 TABLET PO ×2 (08:59→21:51)
[2024-01-23] MEDS: CARDIZEM CD 180 MG PO (09:00)
[2024-01-23] MEDS: PERCOCET 5/325 2 TABLET PO (09:03)
--- NOTE | 2024-01-23 09:47 | W.PN.CD ---
Today's Communication / Plan
-
No new recomenations from a [facility] standpoint. Stable to proceed with surgery as scheduled
sodium 130 defer to hospitalists regarding management.
Impression / Plan
-
68-year-old female (known to Dr. Sheffield, her primary boiler or engine operator, last seen in the office 06/2019), with CAD s/p PCI to proximal and mid LAD and LONDON to ramus intermedius (on 10/17/16), ischemic cardiomyopathy (LVEF 40-45%), right BKA, permanent
atrial fibrillation (on Eliquis), mild to moderate mitral regurgitation, left MCA CVA status-post IAT (11/29/17) with residual mild dysarthria, hyperlipidemia, and type II diabetes s/p fall and hip fracture
.
Pre-op risk assessment - Gamma Nail (Right hip fracture) on 01/24/24
- nsqip risk as noted
- continue IV heaprin reop
ICM (EF 45-50%), chronic
-Denies shortness of breath
-No ОЛЬГА or ARB in the past due to hypotension
-Her metoprolol succinate was discontinued and she is now on diltiazem which is not ideal can be addressed post op or in follow up
-Update TTE
CAD
-Stable without chest pain
-LONDON to proximal and mid LAD and LONDON to ramus intermedius (on 10/17/16)
Atrial fibrillation, permanent
-Rate controlled on diltiazem
-Oral Anticoagulation: Eliquis 5mg BID, last dose 01/21/24 am, on hold for OR, Now on iV heaprin
-[id number]: score 7 (Heart failure Diabetes Mellitus, prior Stroke/TIA, Vascular disease, age 65-74, female gender)
Mild to moderate mitral regurgitation (2019)
Prior CVA
HLD
Type II DM, Hgba1c 8.5%
Right BKA
Dementia, chronic
Physical Exam
Vital Signs/Labs
Vital Signs
Temp Pulse Resp BP Pulse Ox
99.0 F 85 18 110/62 93
01/23/24 07:00 01/23/24 09:00 01/23/24 07:00 01/23/24 09:00 01/23/24 07:00
01/22/24 01/23/24 01/24/24
06:59 06:59 06:59
Actual Weight 99 kg 90.401 kg
01/23/24 05:07
01/23/24 05:07
APTT 62.5 Sec (23.4-35.0) H 01/23/24 05:07
Physical Exam
Constitutional: No acute distress
Cardiovascular: Rhythm/rate is irregular
Respiratory: Respiratory effort normal
GI: Soft
Neuro/Psych: Alert
Data Reviewed
-
Date of Service: January 23, 2024
Medical Tests (PFT, Pathology etc): Report Reviewed by me
Labs: Labs Reviewed by me
--- NOTE | 2024-01-23 10:31 | W.PN.HOSP.TC ---
Today's Communication/Plan
-
stop hep gtt at 12am
FR
trend bmp
pain control
reduce lantus
Assessment / Plan
Assessment / Plan
General: Conversant
HEENT: Normocephalic, Anicteric
Respiratory: Clear; No Wheezes, Rales or Rhonchi
Cardiac: S1/S2, Irregular Rhythm (A-fib) and Peripheral Edema (Left lower extremity +1, right BKA)
GI: Soft, Non Tender, Non Distended, Normal Bowel Sounds
Genito-urinary: no livingston
Musculoskeletal: Edema, Right Lower Extremity (Right BKA)
Neuro: Awake, Alert, Oriented; No Slurred Speech or Tremors
Psych: Calm
#Mechanical fall with right proximal femur fracture
-Hold Eliquis last dose was 01/21/2024 in a.m.
-Consult Rachel Delgado aware
-Pain control, ice, bowel regimen(last bowel movement this a.m. 01/21/2024)
-Fall precautions
-Continue vitamin D3
-Surgery planned for 01/24/[address] Delgado
-N.p.o. after midnight 01/23/2024
-PT/OT/case management
Right hip and pelvis x-ray: Fracture of the intertrochanteric right proximal femur
CT head: No acute intracranial abnormality. Mild chronic small vessel disease
#Acute on chronic ambulatory dysfunction 11/22 right BKA 2020
Using rollator at baseline with right leg prosthesis
-PT to evaluate for alternative ambulatory device
#Mild hyponatremia
-Check urine studies
-possibility due to SIADH in setting of pain
-FR for now
# Acute hypoxic respiratory insufficiency likely secondary atelectasis setting of pain
Wean oxygen as tolerated
# Primary thrombophilia patient unsure which type
#DVT/IVC filter unsure year
#Hx PVD
#Mild dementia
Oriented to name place of living but not year tends to ramble with word jargon
-Supportive care
-Fall precautions
#A-fib paroxysmal
-Continue diltiazem 180 mg daily
-HOLD Eliquis 5 mg twice daily last dose 01/21/2020 4 AM and hep gtt to held at midnight.
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
Per Francine patient does become intermittently confused post stroke
#DM2 with hyperglycemia
= check HgbA1c at 8.5
-Accu-Cheks with SSI low
-Reduce nsulin glargine 13u to7u as NPO tomm
-POC 129
#GERD
-No reported meds
#HLD
-Continue pravastatin
#CAD/SC
#Cardiac stents x 4
-Continue pravastatin 40 mg daily
#Ischemic cardiomyopathy
Follows with [facility] cardiology
Echo EF of 55 to 60%. Normal biventricular size and function. MR has improved from mild-moderate to trace.
#Depression hx
-No reported meds
#Ovarian cancer 2008 in remission
DVT prophylaxis
Hold current Eliquis, will need DVT prophylaxis resume post surgery given history of A-fib/primary thrombophilia/DVT in the past
DNR confirmed with Francine over the phone
Updated patient [id number] Francine over the phone on 01/21.
Anticipated Discharge: > 48 hours
Subjective/Interval History
-
Date of Service: January 23, 2024
states of hip pain
Objective Data
-
Labs:
Laboratory Results
01/22/24 01/23/24 01/23/24
23:30 05:07 12:25
WBC 8.0
Hgb 10.4 L
Hct 30.6 L
Plt Count 211
APTT 80.8 H 62.5 H Pending
Sodium 130 L
Potassium 4.2
Chloride 96 L
Carbon Dioxide 27
BUN 11
Creatinine 0.4 L
Glucose 134 H
Calcium 8.6
Vital Signs:
Vital Signs
Temp Pulse Resp BP Pulse Ox
99.0 F 85 18 110/62 93
01/23/24 07:00 01/23/24 09:00 01/23/24 07:00 01/23/24 09:00 01/23/24 07:00
I&O
01/22/24 01/23/24 01/24/24
06:59 06:59 06:59
Intake Total 240 / 240 120 / 120
Output Total 300 / 300
Balance 240 / 240 -180 / -180
Data Reviewed
-
Total Time Spent with Patient (in minutes): 55
[2024-01-23 11:00] VITALS: BP 102/59
--- NOTE | 2024-01-23 11:43 | PN.CDI ---
CDI
- -
CDI:
Physician Documentation Request
Admit Date: 01/21/24 14:14
Dear Doctor Connie,
Patient admitted for mechanical fall with right proximal femur fracture. Pt noted to have a history of atrial fibrillation.
Hospitalist refers to the afib as paroxysmal.
Cardiology as permanent.
01/20 confirmed EKG shows atrial fibrillation. A fib listed as rhythm by nursing from 01/20-01/22
In an attempt to clarify potential conflicting documentation, please clarify the type of atrial fib:
Paroxysmal atrial fibrillation - terminates spontaneously or with intervention within 7 days of onset
Permanent atrial fibrillation - when a decision has been made to accept the presence of AF and there is no further attempt to restore or maintain sinus rhythm
Other - please specify
Use of terms such as suspected, likely, concern for, or probable (associated with a specific diagnosis that is being evaluated, monitored, or treated as if it exists) are acceptable and can be coded in the inpatient setting, when documented at the
time of discharge.
Thank you,
Cheryl Fernandez RN, BSN
CDI Specialist
tiger text
Please use your independent medical judgment in providing your response.
[2024-01-23 11:59] LABS: Glucose - Point of Care 141 mg/dl (70-99)
[2024-01-23 12:47] LABS: APTT 122.8 Sec (23.4-35.0)
[2024-01-23 15:00] VITALS: BP 109/62
[2024-01-23 16:28] LABS: Glucose - Point of Care 141 mg/dl (70-99)
[2024-01-23] MEDS: LANTUS 0.0700000000000000067 UNITS SC (18:36)
[2024-01-23] MEDS: PRAVACHOL 40 MG PO (18:36)
[2024-01-23 19:05] LABS: APTT 115.8 Sec (23.4-35.0)
[2024-01-23 19:33] VITALS: BP 113/64
[2024-01-23 21:58] LABS: Glucose - Point of Care 165 mg/dl (70-99)
[2024-01-23 23:10] VITALS: BP 113/58
[2024-01-24] VITALS (11 sets, daily range): BP systolic 92–153; BP diastolic 47–129; BMI 29.1
[2024-01-24 06:09] LABS: Glucose - Point of Care 125 mg/dl (70-99)
[2024-01-24] MEDS: NOVOLOG FLEXPEN-LOW RESISTANCE SC ×2 (06:54→17:12)
[2024-01-24] MEDS: SENOKOT-S 1 TABLET PO ×2 (07:46→20:07)
[2024-01-24] MEDS: PERCOCET 5/325 2 TABLET PO (07:47)
[2024-01-24] MEDS: CARDIZEM CD 180 MG PO (07:47)
[2024-01-24 08:03] LABS: Glucose - Point of Care 128 mg/dl (70-99)
--- NOTE | 2024-01-24 09:34 | W.PN.UPDATE ---
Update Note
Progress Note Update
Patient NPO pending OR later today with Dr. Delgado.
Heparin drip stopped at midnight.
Consent in chart and IV abx regional coordinator to OR.
[2024-01-24 10:40] LABS: % Basophils 0.4 % (0-2); % Eosinophils 0.2 % (0-6); % Immature Granulocytes 0.4 % (0-0.5); % Lymphocytes 10.4 % (20.5-51.1); % Monocytes 8.6 % (1.7-9.3); Absolute Lymphocytes 0.9 10^3/uL (1.2-3.4); Absolute Monocytes 0.8 10^3/uL (0.1-0.6); Absolute Neutrophils 7.2 10^3/uL (1.4-6.5); Hematocrit 30.7 % (37.0-47.0); Hemoglobin 10.5 g/dL (12.0-16.0); Mean Corp Hgb Conc. 34.2 g/dL (33.0-37.0); Mean Corpuscular Hgb 29.5 pg (27.0-31.0); Mean Corpuscular Volume 86.2 fL (81.0-99.0); Mean Platelet Volume 9.5 fL (7.4-10.4); Nucleated Red Blood Cells % 0 %; Platelet Count 222 10^3/uL (130-400); Red Blood Cell Count 3.56 10^6/uL (4.20-5.40); Red Cell Dist. Width 13.2 % (11.5-14.5)
--- NOTE | 2024-01-24 10:50 | W.PN.HOSP.TC ---
Addendum entered and electronically signed by French Rosales MD 01/24/24 10:53:
Permanent A-fib
Original Note:
Today's Communication/Plan
-
OR today
Restart Eliquis pending surgery clearance
Postop orders per surgery
Awaiting labs
Adjust insulin
Assessment / Plan
Assessment / Plan
General: Conversant
HEENT: Normocephalic, Anicteric
Respiratory: Clear; No Wheezes, Rales or Rhonchi
Cardiac: S1/S2, Irregular Rhythm (A-fib) and Peripheral Edema (Left lower extremity +1, right BKA)
GI: Soft, Non Tender, Non Distended, Normal Bowel Sounds
Genito-urinary: no livingston
Musculoskeletal: Edema, Right Lower Extremity (Right BKA)
Neuro: Awake, Alert, Oriented; No Slurred Speech or Tremors
Psych: Calm
#Mechanical fall with right proximal femur fracture
-Hold Eliquis last dose was 01/21/2024 in a.m.
-Consult Ortho�Dr. Delgado
-Pain control, ice, bowel regimen(last bowel movement this a.m. 01/21/2024)
-Fall precautions
-Continue vitamin D3
-Surgery planned for 01/24/[address] Delgdao
-N.p.o. 4 OR today.
-PT/OT/case management
#Acute on chronic ambulatory dysfunction 11/22 right BKA 2020
Using rollator at baseline with right leg prosthesis
-PT to evaluate for alternative ambulatory device post
#Mild hyponatremia
-Check urine studies
-possibility due to SIADH in setting of pain
-FR for now. Studies pending
# Acute hypoxic respiratory insufficiency likely secondary atelectasis setting of pain
Wean oxygen as tolerated
# Primary thrombophilia patient unsure which type
#DVT/IVC filter unsure year
#Hx PVD
#Mild dementia
Oriented to name place of living but not year tends to ramble with word jargon
-Supportive care
-Fall precautions
#A-fib paroxysmal
-Continue diltiazem 180 mg daily
-HOLD Eliquis 5 mg twice daily last dose 01/21/2020 4 AM and hep gtt to held at midnight.
-Restart postop pending surgery clearance
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
Per Francine patient does become intermittently confused post stroke
#DM2 with hyperglycemia
= check HgbA1c at 8.5
-Accu-Cheks with SSI low
-Restart regular dose Lantus 13 units
-POC 128
#GERD
-No reported meds
#HLD
-Continue pravastatin
#CAD/[place]
#Cardiac stents x 4
-Continue pravastatin 40 mg daily
#Ischemic cardiomyopathy
Follows with [facility] cardiology
Echo EF of 55 to 60%. Normal biventricular size and function. MR has improved from mild-moderate to trace.
#Depression hx
-No reported meds
#Ovarian cancer 2008 in remission
DVT prophylaxis
Hold current Eliquis, will need DVT prophylaxis resume post surgery given history of A-fib/primary thrombophilia/DVT in the past
DNR confirmed with Francine over the phone
Updated patient onctzthh-sq-fdx Francine over the phone on 01/21.
Anticipated Discharge: > 48 hours
Subjective/Interval History
-
Date of Service: January 24, 2024
States right hip soreness
Objective Data
-
Labs:
Laboratory Results
01/24/24
10:26
WBC 9.0
Hgb 10.5 L
Hct 30.7 L
Plt Count 222
PT Pending
INR Pending
APTT Pending
Sodium Pending
Potassium Pending
Chloride Pending
Carbon Dioxide Pending
BUN Pending
Creatinine Pending
Glucose Pending
Calcium Pending
Vital Signs:
Vital Signs
Temp Pulse Resp BP Pulse Ox
98.8 F 78 18 92/64 96
01/24/24 07:00 01/24/24 07:00 01/24/24 07:00 01/24/24 07:00 01/24/24 07:00
I&O
01/23/24 01/24/24 01/25/24
06:59 06:59 06:59
Intake Total 120 / 120 625 / 625
Output Total 300 / 300 350 / 350
Balance -180 / -180 275 / 275
Data Reviewed
-
Total Time Spent with Patient (in minutes): 55
[2024-01-24 10:54] LABS: INR 1.27; PT 15.7 Sec (11.4-14.6)
[2024-01-24 10:55] LABS: APTT 40.9 Sec (23.4-35.0)
[2024-01-24 11:16] LABS: Blood Urea Nitrogen 9 mg/dl (7-17); Calcium 8.9 mg/dl (8.4-10.2); Carbon Dioxide 23 mmol/L (22-30); Chloride 95 mmol/L (98-107); Estimated Creatinine Clearance 104 ml/min; Glucose 138 mg/dl (70-99); Potassium 4.2 mmol/L (3.5-5.1); Sodium 130 mmol/L (135-145); eGFR > 60.00
[2024-01-24 12:35] LABS: APTT 35.4 Sec (23.4-35.0); INR 1.22; PT 15.2 Sec (11.4-14.6)
[2024-01-24 15:22] LABS: Glucose - Point of Care 139 mg/dl (70-99)
--- NOTE | 2024-01-24 15:26 | CM ---
ORIF right hip today.
Will need Pt OT ordered postop .
Spoke with Selene at [facility] pt [facility] [place] [facility] . Can return to [facility] at hi.
Will need ambulance medical nec form.
[facility]
report [phone]

PLAN Return to [facility] configurator
--- NOTE | 2024-01-24 15:27 | W.PN.UPDATE ---
Update Note
Progress Note Update
Discussed with Dr. Delgado-okay to restart Eliquis tomorrow morning. Orders placed.
[2024-01-24] MEDS: NSS 1000 IV (16:26)
--- NOTE | 2024-01-24 16:46 | PTCARENOTE ---
Addendum entered by Jimena Bowen RN 01/24/24 18:24:
On 2L NC satting 99%.
Original Note:
Pt arrived to [facility] from PACU s/p R ORIF gamma nail. Pt AAOx2, confused with time, NV intact. R hip aquacel C/D/I, 4x4 below C/D/I, liang wrap and 4x4 dressing C/D/I at the knee. Pt states no pain at this time. Pt oriented to call [facility] and room, bed
locked and in lowest position, call [facility] within reach.
[2024-01-24 16:56] LABS: Glucose - Point of Care 159 mg/dl (70-99)
[2024-01-24] MEDS: LANTUS 0.130000000000000004 UNITS SC (18:03)
[2024-01-24] MEDS: PRAVACHOL 40 MG PO (18:03)
[2024-01-24] MEDS: NOVOLOG FLEXPEN-LOW RESISTANCE 1 UNITS SC (18:03)
[2024-01-24] MEDS: SENOKOT 17.1999999999999993 MG PO (20:02)
[2024-01-24] MEDS: COLACE 100 MG PO (20:02)
[2024-01-24] MEDS: PERCOCET 5/325 1 TABLET PO (20:03)
[2024-01-24] MEDS: ANCEF 5 IV (20:26)
[2024-01-24 21:50] LABS: Glucose - Point of Care 290 mg/dl (70-99)
[2024-01-25] VITALS (8 sets, daily range): BP systolic 92–160; BP diastolic 52–86; PULSE 92–103; O2SAT 95–96
[2024-01-25] MEDS: ANCEF 5 IV (04:08)
[2024-01-25 07:12] LABS: % Basophils 0.1 % (0-2); % Immature Granulocytes 0.2 % (0-0.5); % Lymphocytes 6.2 % (20.5-51.1); % Monocytes 9.8 % (1.7-9.3); % Neutrophils 83.7 % (42.2-75.2); Absolute Lymphocytes 0.6 10^3/uL (1.2-3.4); Absolute Monocytes 0.9 10^3/uL (0.1-0.6); Absolute Neutrophils 7.9 10^3/uL (1.4-6.5); Hemoglobin 10.2 g/dL (12.0-16.0); Mean Corp Hgb Conc. 32.9 g/dL (33.0-37.0); Mean Corpuscular Hgb 29.2 pg (27.0-31.0); Mean Corpuscular Volume 88.8 fL (81.0-99.0); Mean Platelet Volume 10.1 fL (7.4-10.4); Nucleated Red Blood Cells % 0 %; Platelet Count 258 10^3/uL (130-400); Red Blood Cell Count 3.49 10^6/uL (4.20-5.40); Red Cell Dist. Width 13.4 % (11.5-14.5); White Blood Cell Count 9.4 10^3/uL (4.8-10.8)
--- NOTE | 2024-01-25 07:19 | W.PN.ORTHO ---
Today's Communication / Plan
-
PT/OT
Weightbearing as tolerated with prosthetic device
Eliquis (start today)/mechanical devices for DVT prophylaxis
detention facility once medically stable
Assessment
.
Distal Motor Intact: Yes
Dressing:
Clean, dry and intact.
Plan
.
Surgery / Date: R hip Gamma Nail 01/23 [place]
DVT Prophylaxis: Other (Eliquis to start today)
Activity:
Out of bed.
PT/OT
Discharge Plan: SNF
Subjective
.
.:
Patient resting comfortably.
Vital Signs and Labs
.
Vital Signs and Labs:
Lab Results
01/25/24 06:12
Temp Pulse Resp BP Pulse Ox
97.3 F 99 14 122/74 100
01/25/24 03:00 01/25/24 03:00 01/25/24 03:00 01/25/24 03:00 01/25/24 03:00
PT 15.2 Sec (11.4-14.6) H 01/24/24 12:11
INR 1.22 01/24/24 12:11
[2024-01-25 07:30] LABS: Glucose - Point of Care 262 mg/dl (70-99)
[2024-01-25 07:38] LABS: Blood Urea Nitrogen 15 mg/dl (7-17); Carbon Dioxide 25 mmol/L (22-30); Chloride 96 mmol/L (98-107); Estimated Creatinine Clearance 104 ml/min; Glucose 282 mg/dl (70-99); Potassium 4.9 mmol/L (3.5-5.1); Sodium 130 mmol/L (135-145); eGFR > 60.00
[2024-01-25] MEDS: ELIQUIS 5 MG PO ×2 (08:22→17:32)
[2024-01-25] MEDS: NOVOLOG FLEXPEN-LOW RESISTANCE 3 UNITS SC (08:22)
[2024-01-25] MEDS: CARDIZEM CD 180 MG PO (08:22)
[2024-01-25] MEDS: SENOKOT-S 1 TABLET PO ×2 (08:22→20:27)
[2024-01-25] MEDS: TYLENOL 1000 MG PO ×3 (08:24→20:28)
--- NOTE | 2024-01-25 08:35 | PTCARENOTE ---
On patient assessment found to have unequal pupils, but both reactive. R pupil noted to be 3mm and reactive and L pupil noted to be 2mm and reactive. Pt AAOx2 at her baseline dementia, mild aphasia at baseline from previous CVA, no other new
deficits noted. Dr. Hall notified, no new orders placed.
--- NOTE | 2024-01-25 09:16 | W.PN.CD ---
Addendum entered and electronically signed by Veronica Molina MD 01/25/24 11:55:
I saw and examined the patient.
The CORPORATE COMMUNICATIONS SPECIALIST's note was reviewed and I agree with the note.
Comment: She is looking and feeling remarkable. Pain is improved when I get to the bedside. On exam she is lying comfortably flat in the bed. irreg irreg rr, no m/r/g. Lungs CTA bl. left ll is without edema, trace edema in leg and surgical side,
2/2 to procedure, she isn't volume overloaded. Eliquis has been resumed. Her rates are controlled. She is euvolemic. Continue post op care. I will sign off.
Please call back with questions.
Original Note:
Today's Communication / Plan
-
continue Diltiazem and Eliquis resumed this am.
Impression / Plan
-
68-year-old female (known to Dr. Sheffield, her primary tool specialist, last seen in the office 06/2019), with CAD s/p PCI to proximal and mid LAD and LONDON to ramus intermedius (on 10/17/16), ischemic cardiomyopathy (LVEF 40-45%), right BKA, permanent
atrial fibrillation (on Eliquis), mild to moderate mitral regurgitation, left MCA CVA status-post IAT (11/29/17) with residual mild dysarthria, hyperlipidemia, and type II diabetes s/p fall and hip fracture.
Pre-op risk assessment - Gamma Nail (Right hip fracture) on 01/24/24
- denies cardiac complaints/issues.
- post-op management per ortho.
ICM (EF 55-60%), chronic
-Denies shortness of breath.
-No ОЛЬГА or ARB in the past due to hypotension
-Her metoprolol succinate was discontinued and she is now on diltiazem and will continue.
-Echo 01/22/24: EF 55-60%, mild concentric left ventricular hypertrophy, aortic sclerosis without stenosis.
CAD
-Stable without chest pain.
-LONDON to proximal and mid LAD and LONDON to ramus intermedius (on 10/17/16).
Atrial fibrillation, permanent
-Rate controlled on diltiazem, continue.
-Oral Anticoagulation: Eliquis 5mg BID, resuming today per ortho.
-[id number]: score 7 (Heart failure Diabetes Mellitus, prior Stroke/TIA, Vascular disease, age 65-74, female gender).
Mild to moderate mitral regurgitation (2018)
Prior CVA
HLD
Type II DM, Hgba1c 8.5%
Right BKA
Dementia, chronic
Physical Exam
Vital Signs/Labs
Vital Signs
Temp Pulse Resp BP Pulse Ox
98.4 F 97 17 134/67 96
01/25/24 07:12 01/25/24 08:22 01/25/24 07:12 01/25/24 08:22 01/25/24 07:12
01/24/24 01/25/24 01/26/24
06:59 06:59 06:59
Actual Weight 89.3 kg
01/25/24 06:12
01/25/24 06:12
PT 15.2 Sec (11.4-14.6) H 01/24/24 12:11
INR 1.22 01/24/24 12:11
APTT 35.4 Sec (23.4-35.0) H 01/24/24 12:11
Physical Exam
Constitutional: No acute distress
EENT: Anicteric and Moist mucous membranes
Cardiovascular: Rhythm/rate is irregular
Respiratory: Respiratory effort normal and Lungs clear to auscul.
GI: Soft and Normal bowel sounds
Neuro/Psych: AO x 3
Other: Skin (warm, dry. R BKA with ольга wrap in place)
Data Reviewed
-
Date of Service: January 25, 2024
Medical Decision Making: External Notes and Reviewed Test Results
EKG: Tracing Personally Visualized and interpreted
Echo: Report Reviewed by me
Labs: Labs Reviewed by me
Old Records: Reviewed
--- NOTE | 2024-01-25 09:41 | W.PN.HOSP.TC ---
Today's Communication/Plan
-
.
Assessment / Plan
Assessment / Plan
Physical exam:
General: Conversant
HEENT: Normocephalic, Anicteric
Respiratory: Clear; No Wheezes, Rales or Rhonchi
Cardiac: S1/S2, Irregular Rhythm (A-fib) and Peripheral Edema (Left lower extremity +1, right BKA)
GI: Soft, Non Tender, Non Distended, Normal Bowel Sounds
Genito-urinary: no livingston
Musculoskeletal: Edema, Right Lower Extremity (Right BKA)
Neuro: Awake, Alert, Oriented; No Slurred Speech or Tremors
Psych: Calm
#Mechanical fall with right proximal femur fracture
s/p R hip Gamma Nail 01/23
-Held Eliquis , resumed 01/24
- pain control with Tylenol , PRN Oxycodone
-Fall precautions
-Continue vitamin D3
-PT/OT/case management
# Acute blood loss anemia
no further drop
no hypotension
HGB around 10.
#Acute on chronic ambulatory dysfunction 11/22 right BKA 2020
Using rollator at baseline with right leg prosthesis
-PT to evaluate for alternative ambulatory device post
#Mild hyponatremia
-possibility due to SIADH in setting of pain
-FR for now.
# Acute hypoxic respiratory insufficiency likely secondary atelectasis setting of pain
Wean oxygen as tolerated
# Primary thrombophilia patient unsure which type
#DVT/IVC filter unsure year
#Hx PVD
#Mild dementia
Oriented to name place of living but not year tends to ramble with word jargon
-Supportive care
-Fall precautions
#A-fib paroxysmal
-Continue diltiazem 180 mg daily
-Resumed Eliquis 5 mg twice daily
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
Per Francine patient does become intermittently confused post stroke
#DM2 with hyperglycemia, uncontrolled.
= check HgbA1c at 8.5
-Accu-Cheks with SSI low
-Restart regular dose Lantus 13 units, will increase it to 15 units
-BS AM 262
#GERD
-No reported meds
#HLD
-Continue pravastatin
#CAD/ID
#Cardiac stents x 4
-Continue pravastatin 40 mg daily
#Ischemic cardiomyopathy
Follows with [facility] cardiology
Echo EF of 55 to 60%. Normal biventricular size and function. MR has improved from mild-moderate to trace.
#Depression hx
-No reported meds
#Ovarian cancer 2008 in remission
DVT prophylaxis
Hold current Eliquis, will need DVT prophylaxis resume post surgery given history of A-fib/primary thrombophilia/DVT in the past
DNR confirmed with Francine over the phone
Total time spent to see the patient, examine the patient on the floor, review data and lab results, discuss treatment plan with patient, nursing staff around 55 minutes.
Anticipated Discharge: 24 - 48 hours
Subjective/Interval History
-
Date of Service: January 25, 2024
Pain in her leg
No headache
no chest pain
Objective Data
-
Labs:
Laboratory Results
01/25/24
06:12
WBC 9.4
Hgb 10.2 L
Hct 31.0 L
Plt Count 258
Sodium 130 L
Potassium 4.9
Chloride 96 L
Carbon Dioxide 25
BUN 15
Creatinine 0.4 L
Glucose 282 H
Calcium 9.0
Vital Signs:
Vital Signs
Temp Pulse Resp BP Pulse Ox
98.4 F 97 17 134/67 96
01/25/24 07:12 01/25/24 08:22 01/25/24 07:12 01/25/24 08:22 01/25/24 07:12
I&O
01/24/24 01/25/24 01/26/24
06:59 06:59 06:59
Intake Total 625 / 625 120 / 120
Output Total 350 / 350
Balance 275 / 275 120 / 120
[2024-01-25] MEDS: ROXICODONE 5 MG PO ×2 (10:46→15:06)
[2024-01-25 12:04] LABS: Glucose - Point of Care 328 mg/dl (70-99)
[2024-01-25] MEDS: NOVOLOG FLEXPEN-LOW RESISTANCE 4 UNITS SC (12:06)
[2024-01-25 16:59] LABS: Glucose - Point of Care 356 mg/dl (70-99)
[2024-01-25] MEDS: NOVOLOG FLEXPEN-LOW RESISTANCE 5 UNITS SC (17:14)
[2024-01-25] MEDS: LANTUS 0.149999999999999994 UNITS SC (17:14)
[2024-01-25] MEDS: PRAVACHOL 40 MG PO (17:32)
[2024-01-25 21:29] LABS: Glucose - Point of Care 337 mg/dl (70-99)
[2024-01-25] MEDS: NOVOLOG FLEXPEN 5 UNITS SC (22:40)
[2024-01-26 00:37] LABS: Glucose - Point of Care 333 mg/dl (70-99)
[2024-01-26 00:43] LABS: Glucose - Point of Care 307 mg/dl (70-99)
[2024-01-26] MEDS: NOVOLOG FLEXPEN 5 UNITS SC (00:48)
[2024-01-26 03:00] VITALS: BP 122/59
[2024-01-26 03:01] LABS: Glucose - Point of Care 297 mg/dl (70-99)
[2024-01-26] MEDS: ROXICODONE 5 MG PO ×3 (05:39→17:20)
[2024-01-26 06:00] VITALS: BMI 28.9
--- NOTE | 2024-01-26 06:52 | W.PN.ORTHO ---
Today's Communication / Plan
-
PT/OT
Eliquis for DVT prophylaxis
Weightbearing as tolerated
[facility] [place] [facility]
Skin clip removal 2 weeks postop either at [facility] or in orthopedic office
Assessment
.
Distal Motor Intact: Yes
Dressing:
Clean, dry and intact.
Plan
.
Surgery / Date: R hip Gamma Nail 01/23 [place]
DVT Prophylaxis: Other (Eliquis)
Activity:
Out of bed.
PT/OT
Discharge Plan: SNF
Discharge Information:
[facility] [place] once medically stable
Subjective
.
.:
Patient resting comfortably. She relates that she worked with physical therapy yesterday. Pain has been minimal and controlled.
Vital Signs and Labs
.
Vital Signs and Labs:
Lab Results
01/25/24 06:12
01/25/24 06:12
Temp Pulse Resp BP Pulse Ox
98.9 F 98 14 122/59 96
01/26/24 03:00 01/26/24 03:00 01/26/24 03:00 01/26/24 03:00 01/26/24 03:00
PT 15.2 Sec (11.4-14.6) H 01/24/24 12:11
INR 1.22 01/24/24 12:11
[2024-01-26 07:06] VITALS: BP 124/66
[2024-01-26 07:19] LABS: Glucose - Point of Care 196 mg/dl (70-99)
[2024-01-26] MEDS: NOVOLOG FLEXPEN-LOW RESISTANCE 1 UNITS SC (08:15)
[2024-01-26] MEDS: TYLENOL 1000 MG PO ×3 (08:45→22:00)
[2024-01-26] MEDS: ELIQUIS 5 MG PO ×2 (08:45→18:04)
[2024-01-26] MEDS: SENOKOT-S 1 TABLET PO ×2 (08:45→20:20)
[2024-01-26] MEDS: CARDIZEM CD 180 MG PO (08:45)
[2024-01-26 11:22] VITALS: BP 123/72
[2024-01-26 11:54] LABS: Glucose - Point of Care 282 mg/dl (70-99)
[2024-01-26] MEDS: NOVOLOG FLEXPEN-LOW RESISTANCE 3 UNITS SC (11:56)
--- NOTE | 2024-01-26 12:23 | W.PN.HOSP.TC ---
Today's Communication/Plan
-
.
Assessment / Plan
Assessment / Plan
Physical exam:
General: Conversant
HEENT: Normocephalic, Anicteric
Respiratory: Clear; No Wheezes, Rales or Rhonchi
Cardiac: S1/S2, Irregular Rhythm (A-fib) and Peripheral Edema (Left lower extremity +1, right BKA)
GI: Soft, Non Tender, Non Distended, Normal Bowel Sounds
Genito-urinary: no livingston
Musculoskeletal: Edema, Right Lower Extremity (Right BKA)
Neuro: Awake, Alert, Oriented; No Slurred Speech or Tremors
Psych: Calm
#Mechanical fall with right proximal femur fracture
s/p R hip Gamma Nail 01/23
-Held Eliquis , resumed 01/24
- pain control with Tylenol , PRN Oxycodone
-Fall precautions
-Continue vitamin D3
-PT/OT/case management
# Acute blood loss anemia
no further drop
no hypotension
HGB around 10.
#Acute on chronic ambulatory dysfunction 11/22 right BKA 2020
Using rollator at baseline with right leg prosthesis
-PT to evaluate for alternative ambulatory device post
#Mild hyponatremia
-possibility due to SIADH in setting of pain
-FR for now.
# Acute hypoxic respiratory insufficiency likely secondary atelectasis setting of pain
Wean oxygen as tolerated
# Primary thrombophilia patient unsure which type
#DVT/IVC filter unsure year
#Hx PVD
#Mild dementia
Oriented to name place of living but not year tends to ramble with word jargon
-Supportive care
-Fall precautions
#A-fib paroxysmal
-Continue diltiazem 180 mg daily
-Resumed Eliquis 5 mg twice daily
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
Per Francine patient does become intermittently confused post stroke
#DM2 with hyperglycemia, uncontrolled.
= check HgbA1c at 8.5
-Accu-Cheks with SSI low
-Restart regular dose Lantus 13 units, will increase it to 15 units
-BS AM 262
#GERD
-No reported meds
#HLD
-Continue pravastatin
#CAD/[place]
#Cardiac stents x 4
-Continue pravastatin 40 mg daily
#Ischemic cardiomyopathy
Follows with [facility] cardiology
Echo EF of 55 to 60%. Normal biventricular size and function. MR has improved from mild-moderate to trace.
#Depression hx
-No reported meds
#Ovarian cancer 2008 in remission
DVT prophylaxis
Hold current Eliquis, will need DVT prophylaxis resume post surgery given history of A-fib/primary thrombophilia/DVT in the past
DNR confirmed with Francine over the phone
Total time spent to see the patient, examine the patient on the floor, review data and lab results, discuss treatment plan with patient, nursing staff around 45 minutes.
Anticipated Discharge: Today
Subjective/Interval History
-
Date of Service: January 26, 2024
No chest pain
No sob
Objective Data
-
Vital Signs:
Vital Signs
Temp Pulse Resp BP Pulse Ox
98.9 F 99 17 123/72 97
01/26/24 11:22 01/26/24 11:22 01/26/24 11:22 01/26/24 11:22 01/26/24 11:22
I&O
01/25/24 01/26/24 01/27/24
06:59 06:59 06:59
Intake Total 120 / 120 960 / 960 240 / 240
Balance 120 / 120 960 / 960 240 / 240
[2024-01-26 15:29] VITALS: BP 127/58; BP 128/58; PULSE 68; O2SAT 96
[2024-01-26 15:33] VITALS: BP 128/58
[2024-01-26 16:58] LABS: Glucose - Point of Care 214 mg/dl (70-99)
[2024-01-26] MEDS: NOVOLOG FLEXPEN-LOW RESISTANCE 2 UNITS SC (16:59)
[2024-01-26] MEDS: MILK OF MAGNESIA 30 ML PO (16:59)
[2024-01-26] MEDS: LANTUS 0.149999999999999994 UNITS SC (18:04)
[2024-01-26] MEDS: PRAVACHOL 40 MG PO (18:04)
[2024-01-26 21:02] LABS: Glucose - Point of Care 264 mg/dl (70-99)
[2024-01-26 23:52] VITALS: BP 107/56
[2024-01-27 04:56] LABS: Hematocrit 25.9 % (37.0-47.0); Hemoglobin 8.5 g/dL (12.0-16.0); Mean Corp Hgb Conc. 32.8 g/dL (33.0-37.0); Mean Corpuscular Hgb 29.1 pg (27.0-31.0); Mean Corpuscular Volume 88.7 fL (81.0-99.0); Mean Platelet Volume 9.7 fL (7.4-10.4); Platelet Count 260 10^3/uL (130-400); Red Blood Cell Count 2.92 10^6/uL (4.20-5.40); Red Cell Dist. Width 13.7 % (11.5-14.5)
[2024-01-27 07:40] VITALS: BP 123/60
[2024-01-27] MEDS: NOVOLOG FLEXPEN-LOW RESISTANCE SC (08:04)
[2024-01-27 08:05] LABS: Glucose - Point of Care 142 mg/dl (70-99)
[2024-01-27] MEDS: TYLENOL 1000 MG PO ×2 (08:05→16:23)
[2024-01-27] MEDS: ELIQUIS 5 MG PO ×2 (08:05→17:32)
[2024-01-27] MEDS: CARDIZEM CD 180 MG PO (08:05)
[2024-01-27] MEDS: SENOKOT-S 1 TABLET PO (08:06)
[2024-01-27 08:53] LABS: Glucose - Point of Care 184 mg/dl (70-99)
[2024-01-27 09:35] VITALS: BP 120/59; BP 126/66; PULSE 82; PULSE 84; O2SAT 97
[2024-01-27] MEDS: DULCOLAX 10 MG RECTAL (11:06)
[2024-01-27] MEDS: ROXICODONE 5 MG PO (11:11)
--- NOTE | 2024-01-27 11:49 | W.PN.HOSP.TC ---
Addendum entered and electronically signed by French Rosales MD 01/27/24 15:01:
Patient with small bowel with post enema. Tolerating diet.
Abdomen remains with positive bowel sounds soft nontender nondistended.
Patient eager to go home
More than 30 minutes spent in discharge including
Final examination of the patient
Summarizing hospital stay
Instructions for continuing care to all relevant caregivers
Preparation of discharge records, prescriptions, and referral forms
Total time spent (in minutes): 52
Original Note:
Today's Communication/Plan
-
bowel regimen
start dispo
bmp pending
Assessment / Plan
Assessment / Plan
Physical exam:
General: Conversant
HEENT: Normocephalic, Anicteric
Respiratory: Clear; No Wheezes, Rales or Rhonchi
Cardiac: S1/S2, Irregular Rhythm (A-fib) and Peripheral Edema (Left lower extremity +1, right BKA)
GI: Soft, Non Tender, Non Distended, Normal Bowel Sounds
Genito-urinary: no livingston
Musculoskeletal: Edema, Right Lower Extremity (Right BKA)
Neuro: Awake, Alert, Oriented; No Slurred Speech or Tremors
Psych: Calm
#Mechanical fall with right proximal femur fracture
s/p R hip Gamma Nail 01/23
-Held Eliquis , resumed 01/24
- pain control with Tylenol , PRN Oxycodone
-Fall precautions
-Continue vitamin D3
-PT/OT/case management
# Acute blood loss anemia likely 2/2 surgery vs. dilutional from IVF
-Trend for now. Transfuse <7.
#Acute on chronic ambulatory dysfunction 2/2 right BKA 2020
Using rollator at baseline with right leg prosthesis
-PT to evaluate for alternative ambulatory device post
#Mild hyponatremia
-possibility due to SIADH in setting of pain
-FR for now.
-check labs
Consitipation
-bowel meds continue.
-suppository added
# Acute hypoxic respiratory insufficiency likely secondary atelectasis setting of pain
Wean oxygen as tolerated
# Primary thrombophilia patient unsure which type
#DVT/IVC filter unsure year
#Hx PVD
#Mild dementia
Oriented to name place of living but not year tends to ramble with word jargon
-Supportive care
-Fall precautions
#A-fib paroxysmal
-Continue diltiazem 180 mg daily
-Resumed Eliquis 5 mg twice daily
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
Per Francine patient does become intermittently confused post stroke
#DM2 with hyperglycemia, uncontrolled.
= check HgbA1c at 8.5
-Accu-Cheks with SSI low
-Restart regular dose Lantus 13 units, will increase it to 15 units
-BS AM 142
#GERD
-No reported meds
#HLD
-Continue pravastatin
#CAD/[place]
#Cardiac stents x 4
-Continue pravastatin 40 mg daily
#Ischemic cardiomyopathy
Follows with [facility]ology
Echo EF of 55 to 60%. Normal biventricular size and function. MR has improved from mild-moderate to trace.
#Depression hx
-No reported meds
#Ovarian cancer 2008 in remission
DVT prophylaxis-eliquis
DNR confirmed with Francine over the phone
Anticipated Discharge: Within 24 hours
Subjective/Interval History
-
Date of Service: January 27, 2024
sitting in chair
states pain is controlled
Objective Data
-
Labs:
Laboratory Results
01/27/24
04:16
WBC 9.0
Hgb 8.5 L
Hct 25.9 L
Plt Count 260
Vital Signs:
Vital Signs
Temp Pulse Resp BP Pulse Ox
98.8 F 70 18 123/60 98
01/27/24 07:40 01/27/24 08:05 01/27/24 07:40 01/27/24 08:05 01/27/24 07:40
I&O
01/26/24 01/27/24 01/28/24
06:59 06:59 06:59
Intake Total 960 / 960 840 / 840
Balance 960 / 960 840 / 840
Data Reviewed
-
Total Time Spent with Patient (in minutes): 55
[2024-01-27 11:56] LABS: Glucose - Point of Care 169 mg/dl (70-99)
[2024-01-27] MEDS: NOVOLOG FLEXPEN-LOW RESISTANCE 1 UNITS SC (12:29)
[2024-01-27 12:50] LABS: Blood Urea Nitrogen 13 mg/dl (7-17); Calcium 8.7 mg/dl (8.4-10.2); Carbon Dioxide 29 mmol/L (22-30); Chloride 96 mmol/L (98-107); Estimated Creatinine Clearance 104 ml/min; Glucose 161 mg/dl (70-99); Potassium 4.2 mmol/L (3.5-5.1); Sodium 132 mmol/L (135-145); eGFR > 60.00
--- NOTE | 2024-01-27 14:22 | CM ---
Patient has been medically cleared for discharge back to [facility] for resumption of LTC services. Ambulance transport scheduled for 5:30PM this evening. Patient, [facility], Team aware.
NURSE TO NURSE REPORT # [phone]
FAX # [phone]
--- NOTE | 2024-01-27 15:01 | W.DCSUMMARY ---
Discharge Summary
Discharge Data
Date of Admission: 01/21/24
Date of Discharge: 01/27/24
-
Pending Results: No
Hospital Course
68 yo female past medical history of thrombophilia, PVD, mild dementia, stroke, ischemic cardiomyopathy, depression, atrial fibrillation, chronic coagulopathy with Eliquis was presented after mechanical fall. Patient was found to have a proximal
right femur fracture. Patient was open orthopedic. Cardiology evaluated the patient. Patient status post right hip gamma nail. Postop patient was started on Eliquis per orthopedic clearance. Patient was eval by physical and Occupational
Therapy. Patient with mild hyponatremia which seems secondary to SIADH in the setting of pain. Sodium level improved. Patient hemoglobin was trended and did not require blood transfusion. Patient be discharged back to intermediate facility
with outpatient orthopedic follow-up
Discharge Plan
-
Patient Disposition: Jail/SNF
Discharge Diagnosis/Procedures: Mechanical fall with right proximal femur fracture
status post R hip Gamma Nail 4/ Dr. Delgado
Acute blood loss anemia likely 2/2 surgery vs. dilutional from IVF
Mild hyponatremia
Acute hypoxic respiratory insufficiency likely secondary atelectasis setting of pain
Condition: Fair
Diet: As tolerated
Activity: With assistance and As tolerated
Driving Restrictions: No driving
Blood Work: CBC and BMP in 5-7 days via primary doctor
Referrals:
Edson Delgado MD [Active] - in one to two weeks
Steve Carrasquillo MD [Family Provider] - in less than 1 week
Prescriptions:
New
sennosides-docusate sodium [Stool Softener-Stimulant Laxat] 8.6-50 mg Tablet
1 tab PO BID 30 Days Qty: 60 0RF
acetaminophen [Tylenol Extra Strength] 500 mg Tablet
1,000 mg PO TID 5 Days Qty: 30 0RF
oxycodone 5 mg Tablet
5 mg PO BIDPRN PRN (Reason: severe pain) Qty: 7 0RF
Continued
acetaminophen 325 MG tablet
650 mg PO Q4HPRN MDD 3000 mg PRN (Reason: mild pain/fever>100.4)
Eliquis 5 MG tablet
5 mg PO BID@30,1829
Patient Comments:
nitroglycerin 0.4 MG tablet, sublingual
0.4 mg sublingual [id number] PRN (Reason: chest pain)
diltiazem HCl 180 MG capsule,extended release 24hr
180 mg PO DAILY@829
pravastatin 40 mg Tablet
40 mg PO DAILY@1829
epinephrine 0.3 mg/0.3 mL Auto-Injector
0.3 mg IM DAILYPRN PRN (Reason: ANAPHYLAXIS)
magnesium hydroxide [Milk of Magnesia] 400 mg/5 mL Suspension
30 ml PO HSPRN PRN (Reason: lack of BM)
bisacodyl 10 mg Suppository
10 mg MI [id number] PRN (Reason: lack of BM/MOM ineffective)
cholecalciferol (vitamin D3) 250 mcg (10,000 unit) Tablet
750 mcg PO QMONTH@829
Changed
insulin glargine 100 unit/mL Solution
15 unit SC DAILY@1829 Qty: 0 0RF
Discharge Orders:
Discharge Patient (As Directed); Ordered 01/27/24
Ordered By: French Rosales
Discharge Date and Time
Print Language: ROMANIAN
[2024-01-27 15:15] VITALS: BP 103/60
[2024-01-27 16:23] LABS: Glucose - Point of Care 267 mg/dl (70-99)
[2024-01-27] MEDS: NOVOLOG FLEXPEN-LOW RESISTANCE 3 UNITS SC (16:23)
[2024-01-27] MEDS: LANTUS 0.149999999999999994 UNITS SC (17:13)
[2024-01-27] MEDS: PRAVACHOL 40 MG PO (17:32)
[2024-01-27 18:43] VITALS: BP 111/61
== END 2024-01-27 19:10 | DRG 481 ==
LOC: 2 SOUTH 14:14
PROVIDERS: Clinical Nurse Specialist Family Health; Nurse Practitioner Gerontology; Physician Assistant; Physician Assistant Surgical; ADMITTING PHYSICIAN Internal Medicine; ATTENDING PHYSICIAN Hospitalist; CONSULT PHYSICIAN Internal Medicine Cardiovascular Disease; CONSULT PHYSICIAN Specialist; EMERGENCY PHYSICIAN Emergency Medicine; FAMILY PHYSICIAN Internal Medicine Geriatric Medicine
PROC: 0QSB06Z Reposition Right Lower Femur with Intramedullary Internal Fixation Device, Open Approach (ICD-10-PCS; 2024-01-24)
DX: S72.141A Displaced intertrochanteric fracture of right femur, initial encounter for closed fracture (principal); D62 Acute posthemorrhagic anemia; D68.59 Other primary thrombophilia; I48.21 Permanent atrial fibrillation; J98.11 Atelectasis; E22.2 Syndrome of inappropriate secretion of antidiuretic hormone; E78.00 Pure hypercholesterolemia, unspecified; F32.A Depression, unspecified; I25.5 Ischemic cardiomyopathy; R26.2 Difficulty in walking, not elsewhere classified; R29.810 Facial weakness; I34.0 Nonrheumatic mitral (valve) insufficiency; I10 Essential (primary) hypertension; R09.02 Hypoxemia; I70.0 Atherosclerosis of aorta; R06.89 Other abnormalities of breathing; I25.10 Atherosclerotic heart disease of native coronary artery without angina pectoris; D64.9 Anemia, unspecified; F03.A0 Unspecified dementia, mild, without behavioral disturbance, psychotic disturbance, mood disturbance, and anxiety; E11.51 Type 2 diabetes mellitus with diabetic peripheral angiopathy without gangrene; K21.9 Gastro-esophageal reflux disease without esophagitis; W01.0XXA Fall on same level from slipping, tripping and stumbling without subsequent striking against object, initial encounter; Y93.01 Activity, walking, marching and hiking; Y92.129 Unspecified place in nursing home as the place of occurrence of the external cause; I69.320 Aphasia following cerebral infarction; Z79.01 Long term (current) use of anticoagulants; Z85.43 Personal history of malignant neoplasm of ovary; Z89.511 Acquired absence of right leg below knee; I25.2 Old myocardial infarction; Z86.718 Personal history of other venous thrombosis and embolism; Z87.440 Personal history of urinary (tract) infections; Z95.5 Presence of coronary angioplasty implant and graft; Z97.13 Presence of artificial right leg (complete) (partial); Z95.828 Presence of other vascular implants and grafts; Z83.3 Family history of diabetes mellitus; Z88.0 Allergy status to penicillin; Z79.4 Long term (current) use of insulin
CPT/HCPCS: 70450; 73502; 73552; 76000; 80048; 80053; 82962; 85025; 85027; 85610; 85730; 86803; 86850; 86900; 86901; 87070; 93005; 93306; 96374; 96375; 97163; 97167; 97530; 97535; 97761; 99285; C1713; C1769

== ENCOUNTER → 2024-01-29 11:15 | Outpatient (REF) | payer OTHER, MEDICARE, SELFPAY ==
[2024-01-29 12:23] LABS: Hematocrit 27.8 % (37.0-47.0); Hemoglobin 9.3 g/dL (12.0-16.0); Mean Corp Hgb Conc. 33.5 g/dL (33.0-37.0); Mean Corpuscular Hgb 29.6 pg (27.0-31.0); Mean Corpuscular Volume 88.5 fL (81.0-99.0); Mean Platelet Volume 9.9 fL (7.4-10.4); Platelet Count 341 10^3/uL (130-400); Red Blood Cell Count 3.14 10^6/uL (4.20-5.40); Red Cell Dist. Width 14.2 % (11.5-14.5); White Blood Cell Count 8.4 10^3/uL (4.8-10.8)
[2024-01-29 12:28] LABS: Urine Albumin Trace (Neg - Trace); Urine Bilirubin Negative (Negative); Urine Character Very Cloudy (Clear); Urine Color Yellow; Urine Glucose Trace (Negative); Urine Ketone Negative (Negative); Urine Leukocyte 2+ (Negative); Urine Nitrite Positive (Negative); Urine Occult Blood 3+ (Negative); Urine Specific Gravity 1.015 (<1.030); Urine Urobilinogen Negative (Neg - 1+)
[2024-01-29 12:59] LABS: Urine Bacteria Moderate (Negative); Urine Squamous Cell 26-30 /LPF (Few); Urine White Cell 16-20 /HPF (0-5)
[2024-01-29 13:04] LABS: ALT (SGPT) 19 U/L (0-35); AST (SGOT) 24 U/L (14-36); Albumin 3.1 g/dl (3.5-5.0); Alkaline Phosphatase 51 U/L (38-126); Blood Urea Nitrogen 10 mg/dl (7-17); Calcium 8.2 mg/dl (8.4-10.2); Carbon Dioxide 25 mmol/L (22-30); Chloride 101 mmol/L (98-107); Glucose 220 mg/dl (70-99); Potassium 4.3 mmol/L (3.5-5.1); Sodium 131 mmol/L (135-145); Total Bilirubin 0.7 mg/dl (0.2-1.3); Total Protein 5.7 g/dl (6.3-8.2); eGFR > 60.00
== END ==
LOC: OLABN 11:15
PROVIDERS: ATTENDING PHYSICIAN Internal Medicine Geriatric Medicine
DX: E11.9 Type 2 diabetes mellitus without complications (principal); E78.5 Hyperlipidemia, unspecified; Z79.899 Other long term (current) drug therapy
CPT/HCPCS: 36415; 80053; 81003; 81015; 85027; 87077; 87086; 87186

== ENCOUNTER → 2024-02-03 09:42 | Outpatient (REF) | payer OTHER, MEDICARE, SELFPAY ==
[2024-02-03 10:21] LABS: Hematocrit 29.7 % (37.0-47.0); Hemoglobin 9.7 g/dL (12.0-16.0); Mean Corp Hgb Conc. 32.7 g/dL (33.0-37.0); Mean Corpuscular Hgb 29.3 pg (27.0-31.0); Mean Corpuscular Volume 89.7 fL (81.0-99.0); Mean Platelet Volume 9.8 fL (7.4-10.4); Platelet Count 437 10^3/uL (130-400); Red Blood Cell Count 3.31 10^6/uL (4.20-5.40); Red Cell Dist. Width 14.3 % (11.5-14.5)
[2024-02-03 10:32] LABS: Blood Urea Nitrogen 11 mg/dl (7-17); Calcium 8.3 mg/dl (8.4-10.2); Carbon Dioxide 25 mmol/L (22-30); Chloride 103 mmol/L (98-107); Glucose 214 mg/dl (70-99); Potassium 4.8 mmol/L (3.5-5.1); Sodium 132 mmol/L (135-145); eGFR > 60.00
== END ==
LOC: OLABN 09:42
PROVIDERS: ATTENDING PHYSICIAN Internal Medicine Geriatric Medicine
DX: E11.9 Type 2 diabetes mellitus without complications (principal); E78.5 Hyperlipidemia, unspecified
CPT/HCPCS: 36415; 80048; 85027

== ENCOUNTER 2024-02-09 22:37 | Emergency (ER) | payer MEDICARE, OTHER, SELFPAY ==
[2024-02-09 22:48] VITALS: BP 130/58; BMI 29.0
[2024-02-09 23:46] LABS: % Basophils 0.6 % (0-2); % Eosinophils 2.2 % (0-6); % Immature Granulocytes 0.3 % (0-0.5); % Lymphocytes 20.8 % (20.5-51.1); % Monocytes 8.2 % (1.7-9.3); % Neutrophils 67.9 % (42.2-75.2); Absolute Eosinophils 0.1 10^3/uL (0-0.7); Absolute Lymphocytes 1.4 10^3/uL (1.2-3.4); Absolute Monocytes 0.5 10^3/uL (0.1-0.6); Absolute Neutrophils 4.4 10^3/uL (1.4-6.5); Hematocrit 29.2 % (37.0-47.0); Hemoglobin 9.6 g/dL (12.0-16.0); Mean Corp Hgb Conc. 32.9 g/dL (33.0-37.0); Mean Corpuscular Hgb 28.4 pg (27.0-31.0); Mean Corpuscular Volume 86.4 fL (81.0-99.0); Mean Platelet Volume 9.2 fL (7.4-10.4); Nucleated Red Blood Cells % 0 %; Platelet Count 449 10^3/uL (130-400); Red Blood Cell Count 3.38 10^6/uL (4.20-5.40); Red Cell Dist. Width 14.2 % (11.5-14.5); White Blood Cell Count 6.5 10^3/uL (4.8-10.8)
[2024-02-10] LABS: ALT (SGPT) 16 U/L (0-35); AST (SGOT) 20 U/L (14-36); Albumin 3.1 g/dl (3.5-5.0); Alkaline Phosphatase 117 U/L (38-126); Blood Urea Nitrogen 10 mg/dl (7-17); Calcium 8.9 mg/dl (8.4-10.2); Carbon Dioxide 26 mmol/L (22-30); Chloride 102 mmol/L (98-107); Estimated Creatinine Clearance 104 ml/min; Glucose 268 mg/dl (70-99); Potassium 4.2 mmol/L (3.5-5.1); Sodium 131 mmol/L (135-145); Total Bilirubin 0.5 mg/dl (0.2-1.3); Total Protein 5.9 g/dl (6.3-8.2); eGFR > 60.00
--- NOTE | 2024-02-10 00:19 | ED.GENMED ---
Addendum entered and electronically signed by Alfie Jain PA-C 02/13/24 07:10:
Wound culture report faxed to [facility], current place patient is residing. She was seen by Dr. Delgado for surgery so this report was also faxed to his office. Patient on Cefadroxil 500mg BID.
Original Note:
History of Present Illness
General
Chief Complaint: Skin Problem
Source: [facility] and [facility]
Exam Limitations: dementia (Slight)
Time Seen by Provider: 02/09/24 23:42
Travel History
Have you had any contact with someone who has COVID-19?: No
Do you have any symptoms of coronavirus? Fever > 100 degrees, chills, cough, shortness of breath, sore throat, loss of taste or smell, muscle aches, or headache?: No
History of Present Illness
History of Present Illness:
This is a 68 year old female that comes in by ambulance with c/o right hip drainage. Patient states that she saw the doctor and was started on antibiotics. According to transfer records patient was started on Cefadroxil 500mg BID which she started
on 02/07/24. Told that at first the drainage was serosanguineous at that time. Now the drainage is a brownish color. Denies any fever, chills, chest pain, SOB, abd pain, nausea, vomiting, diarrhea, headache, dizziness, urinary burning.
Past History
Past History
ED Past Medical History: Arrthythmia (Atrial fibrillation), CAD, Cancer (Ovarian cancer in 2007), CVA (Facial weakness), GERD, Hypercholesterolemia, IDDM, [place], Psychiatric (Depression) and Other (Slight Dementia, DVT, PVD, UTI, Left foot ulcer,
anemia, )
ED Past Surgical History: Cardiac (Stents x 4), Cholecystectomy, Gynecological (Hysterectomy), Orthopedic (Bilateral rotator Cuff, laminectomy, Right hip replacement) and Other (IVC filter, Cataracts)
Social History
Tobacco: Non-smoker
Alcohol: None
Drug: None
Personal:
Living: [facility] ([facility])
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
Review of Systems
Review of Systems
All Other Systems: ROS reviewed and negative except as documented in HPI and ROS
Constitutional: Reports no symptoms; Denies fever or chills
EENT: Reports no symptoms
Respiratory: Reports no symptoms; Denies cough or trouble breathing
Cardiac: Reports no symptoms; Denies chest pain
ABD/GI: Reports no symptoms; Denies abdominal pain, nausea, vomiting or diarrhea
: Reports no symptoms; Denies dysuria, frequency or urgency
Musculoskeletal: Reports no symptoms
Skin: Reports other (Drainage form right hip incision)
Neurological: Reports no symptoms; Denies dizzy or headache
Psychiatric: Reports no symptoms
Phy Exam
General Physical Exam
General Presentation: no apparent distress
General age: appears stated age
General Skin: warm and dry
General Habitus: elderly
General Mental: usual mental status
General Hydration: appears well hydrated
ENT Exam
ENT Exam: TM's normal, pharynx normal and neck supple
Eye Exam
Eye Exam: EOMI
Cardiovascular Exam
Cardiovascular Exam: regular rate/rhythm, no edema and normal peripheral pulses
Pulmonary Exam
Pulmonary Exam: lungs clear, no respiratory distress, no rales, chest non tender, no crackles, no rhonchi, no wheezing and no cough
Gastrointestinal Exam
Gastrointestinal Exam: normal bowel sounds, non tender, soft, no organomegaly, no pulsatile mass and non distended
Musculoskeletal Exam
Musculoskeletal Exam: no edema
Skin Exam
Skin Exam: normal color, warm/dry, no rash, no petechia and other (Right hip incision line with amado intact. Negative for any redness or drainage at this time. Dressing removed by nursing staff shows Brownish/red drainage (purulent). Negative
for any fowl smell)
Psychiatric Exam
Psychiatric Exam: normal mood/affect
Course
Orders/Labs/Results
Orders:
Orders
02/09/24 23:41
Complete Blood Count/With Diff Urgent
Comprehensive Metabolic Panel Urgent
02/10/24 00:32
Wound Culture [Wound/Abscess/Other Culture] Urgent
OSBALDO Source: Hip
Specimen Description: Right
Date Specimen was Collected: 02/10/24
Time Specimen was Collected: 00:21
Abnormal Lab Results
02/09/24
23:41
RBC 3.38 L 10^6/uL
(4.20-5.40)
Hgb 9.6 L g/dL
(12.0-16.0)
Hct 29.2 L %
(37.0-47.0)
MCHC 32.9 L g/dL
(33.0-37.0)
Plt Count 449 H 10^3/uL
(130-400)
Sodium 131 L mmol/L
(135-145)
Creatinine 0.3 L mg/dL
(0.6-1.0)
Glucose 268 H mg/dl
(70-99)
Total Protein 5.9 L g/dl
(6.3-8.2)
Albumin 3.1 L g/dl
(3.5-5.0)
02/09/24 23:41
02/09/24 23:41
H/H slightly low. Plt slightly elevated. Sodium slightly low. Glucose nonfasting. Total protein slightly low. Albumin low.
Vital Signs
Initial and Last Documented VS:
Initial Vital Signs
Temp Pulse Resp BP Pulse Ox
99.2 F 81 20 130/58 97
02/09/24 22:48 02/09/24 22:48 02/09/24 22:48 02/09/24 22:48 02/09/24 22:48
Last Documented Vital Signs
Temp Pulse Resp BP Pulse Ox
99.2 F 81 20 130/58 97
02/09/24 22:48 02/09/24 22:48 02/09/24 22:48 02/09/24 22:48 02/09/24 22:48
MDM/Problems Addressed
Differential Diagnosis Includes:
Drainge post surgery, Hip infection
MDM/Problems Addressed:
This is a 68 year old female that is brought in by ambulance with c/o brownish drainage form the right hip. Patient has surgery by Dr. Delgado for a hip replacement. Told that she was started on antibiotic on 02/06, Cefadroxil 500mg BID. Told that
her drainage at that time was serosanguineous but now brown.
Will get labs. Sent wound culture. Dr. Matos to see patient.
Back into see patient. Explained that her WBC are normal and that the incision is negative for any redness. Feel that patient can return [facility] and follow up with Dr. Delgado. Patient to return with any increased fever, redness or any
other concerns.
Chronic conditions affecting care:
right hip replacement
Acute Exacerbation and/or Progression of Chronic Illness:
Right hip replacement
*Pulse Oximetry
Patient hypoxic: no
*EKG
Interpreted by ED Provider?: NA
Rate: EKG- N/A
*It Software Engineer Interpretation
Rate: It Software Engineer- N/A
*Critical Care Note
Total Time (30-74mins, 75-104mins- exclusive of procedures): Not Applicable
ED Attending Note
-
Portions of this chart may have been created with voice recognition software.� Occasional wrong word or��sound alike� substitutions may have occurred due to the inherent limitations of voice recognition software.
Discharge Plan
Departure
Patient Disposition: Retirement/SNF
Date of Disposition: 02/10/24
Time of Disposition: 00:55
Patient with high blood pressure during this ER visit?: Yes
Condition: Good
Covid-19: Not Applicable
Discharge Problem:
Encounter for post surgical wound check
Instructions: How to Prevent Surgical Site Infections, Surgical Wound (DC), BLOOD PRESSURE
Prescriptions:
No Action
acetaminophen 325 MG tablet
650 mg PO Q4HPRN MDD 3000 mg PRN (Reason: mild pain/fever>100.4)
Eliquis 5 MG tablet
5 mg PO BID@829,1829
Patient Comments:
nitroglycerin 0.4 MG tablet, sublingual
0.4 mg sublingual [id number] PRN (Reason: chest pain)
diltiazem HCl 180 MG capsule,extended release 24hr
180 mg PO DAILY@829
pravastatin 40 mg Tablet
40 mg PO DAILY@1829
epinephrine 0.3 mg/0.3 mL Auto-Injector
0.3 mg IM DAILYPRN PRN (Reason: ANAPHYLAXIS)
magnesium hydroxide [Milk of Magnesia] 400 mg/5 mL Suspension
30 ml PO HSPRN PRN (Reason: lack of BM)
bisacodyl 10 mg Suppository
10 mg NE [id number] PRN (Reason: lack of BM/MOM ineffective)
cholecalciferol (vitamin D3) 250 mcg (10,000 unit) Tablet
750 mcg PO QMONTH@829
sennosides-docusate sodium [Stool Softener-Stimulant Laxat] 8.6-50 mg Tablet
1 tab PO BID 30 Days Qty: 60 0RF
acetaminophen [Tylenol Extra Strength] 500 mg Tablet
1,000 mg PO TID 5 Days Qty: 30 0RF
oxycodone 5 mg Tablet
5 mg PO BIDPRN PRN (Reason: severe pain) Qty: 7 0RF
insulin glargine 100 unit/mL Solution
15 unit SC DAILY@1829 Qty: 0 0RF
cefadroxil 500 mg Capsule
1,000 mg PO BID
Referrals:
Edson Delgado MD [Active] - Follow up in 2-3 days
Steve Carrasquillo MD [Family Provider] -
Activity Restrictions/Additional Instructions:
As discussed, your blood work shows your WBC are normal. Your Wound is negative for any redness. This may have just been a surgical pocket that opened and drained. Please continue with your antibiotic as prescribed. Follow up with Dr. Delgado for
recheck in the next 2-3 days. IF YOU HAVE ANY REDNESS, FEVER, OR YOU HAVE ANY OTHER CONCERNS PLEASE RETURN TO THE EMERGENCY ROOM.
Interventions
Interventions:
*Risk Screen - Suicide Last Done: 02/09/24 23:27
*General Assessment Last Done: 02/09/24 22:48
*Neglect/Abuse Screening Last Done: 02/09/24 23:27
ED- Fall Risk Assessment Last Done: 02/09/24 22:55
*ED COVID-19 Vaccine History Last Done: 02/09/24 22:48
ED-Skin Assessment Last Done: 02/09/24 22:55
Discharge Date and Time
Print Language: PERSIAN
[2024-02-10] MEDS: ROXICODONE 5 MG PO (01:25)
[2024-02-10 02:48] VITALS: BP 141/71
== END 2024-02-10 02:50 ==
LOC: EMR 22:37
PROVIDERS: Emergency Medicine; EMERGENCY PHYSICIAN Emergency Medicine; FAMILY PHYSICIAN Internal Medicine Geriatric Medicine
DX: Z48.01 Encounter for change or removal of surgical wound dressing (principal); R03.0 Elevated blood-pressure reading, without diagnosis of hypertension; Z96.641 Presence of right artificial hip joint
CPT/HCPCS: 99283; 80053; 85025; 87070; 87077; 87186; 87205

== ENCOUNTER → 2024-02-10 10:02 | Outpatient (REF) | payer OTHER, MEDICARE, SELFPAY ==
[2024-02-10 11:52] LABS: Hematocrit 28.9 % (37.0-47.0); Hemoglobin 9.2 g/dL (12.0-16.0); Mean Corp Hgb Conc. 31.8 g/dL (33.0-37.0); Mean Corpuscular Hgb 28.7 pg (27.0-31.0); Mean Platelet Volume 9.8 fL (7.4-10.4); Platelet Count 462 10^3/uL (130-400); Red Blood Cell Count 3.21 10^6/uL (4.20-5.40); White Blood Cell Count 6.3 10^3/uL (4.8-10.8)
[2024-02-10 13:48] LABS: Blood Urea Nitrogen 9 mg/dl (7-17); Calcium 8.5 mg/dl (8.4-10.2); Carbon Dioxide 28 mmol/L (22-30); Chloride 102 mmol/L (98-107); Glucose 227 mg/dl (70-99); Potassium 4.6 mmol/L (3.5-5.1); Sodium 132 mmol/L (135-145); eGFR > 60.00
== END ==
LOC: OLABN 10:02
PROVIDERS: ATTENDING PHYSICIAN Internal Medicine Geriatric Medicine
DX: E87.1 Hypo-osmolality and hyponatremia (principal); D64.9 Anemia, unspecified
CPT/HCPCS: 36415; 80048; 85027

== ENCOUNTER 2024-02-13 16:41 | Inpatient (IN) | payer MEDICARE, OTHER, SELFPAY ==
[2024-02-13 14:03] VITALS: BP 109/60
--- NOTE | 2024-02-13 14:28 | ED.GENMED ---
History of Present Illness
General
Chief Complaint: Post Operative Problem(s)
Source: patient, records and other (Bernard Burt)
Time Seen by Provider: 02/13/24 14:10
Travel History
Have you had any contact with someone who has COVID-19?: No
Do you have any symptoms of coronavirus? Fever > 100 degrees, chills, cough, shortness of breath, sore throat, loss of taste or smell, muscle aches, or headache?: No
History of Present Illness
History of Present Illness:
68-year-old female presents to the emergency room from the orthopedic office where she was being evaluated by Bernard Oliva. Patient was having a postoperative check after requiring right hip gamma nail surgery to treat an intertrochanteric
fracture. The wound is evidently infected. Patient was seen here in the emergency room couple days ago and had wound culture sent. The wound culture has grown Klebsiella pneumonia as well as Enterococcus. Patient sent to the emergency room for
admission, IV antibiotics, infectious disease consult. Patient has right hip pain but denies fever though she does evidently have some level of dementia.
Past History
Past History
ED Past Medical History: Arrthythmia (Atrial fibrillation), CAD, Cancer (Ovarian cancer in 2007), CVA (Facial weakness), GERD, Hypercholesterolemia, IDDM, [place], Psychiatric (Depression) and Other (Slight Dementia, DVT, PVD, UTI, Left foot ulcer,
anemia, )
ED Past Surgical History: Cardiac (Stents x 4), Cholecystectomy, Gynecological (Hysterectomy), Orthopedic (Bilateral rotator Cuff, laminectomy, Right hip replacement) and Other (IVC filter, Cataracts)
Social History
Tobacco: Non-smoker
Alcohol: None
Drug: None
Personal:
Living: [facility]pc ([facility])
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
Phy Exam
Physical Exam
Physical Exam:
General: Awake, Alert, Oriented X3. No acute distress.
Vitals: unremarkable
Head: Atraumatic
Eyes: Pupils equal, EOMI
Throat: Airway intact, no exudates
Neck: Trachea midline
Lungs: Clear and equal b/l
Heart: Regular rate, no murmurs
Abd: Soft, Nontender, No pulsatile mass
Neuro: Nonfocal
Skin: Warm, dry, no rash
Extremities: pulses equal b/l, no edema. Surgical incision noted right hip with purulent discharge. There is mild surrounding erythema of the proximal aspect of the wound. There is mild bulging in that area. I can express purulent material with
pressure to the wound. Janeth are intact.
Course
Orders/Labs/Results
Orders:
Orders
02/13/24 Lunch
1800 calorie (15 carb) Diabetic
At Your Request: Full Participation
Does patient need a safe tray?: No
02/13/24 14:23
CMP [Comprehensive Metabolic Panel] Urgent
Complete Blood Count/With Diff Urgent
Lactic Acid Urgent
Blood Culture Routine
OSBALDO Source: Blood/Venous
Specimen Description:
Date Specimen was Collected: 02/13/24
Time Specimen was Collected: 14:09
02/13/24 14:26
PT/INR [Prothrombin Time] Urgent
02/13/24 14:45
CeFAZolin 2 GRAM [Ancef] 2 grams in 10 ml IV NOW
02/13/24 15:19
Vancomycin [Vancocin] 2,000 mg 0.9% Sodium Chloride 500 ml [Nss] 500 ml IV NOW
02/13/24 15:29
Oxycodone [Roxicodone] 5 mg PO NOW STA
02/13/24 16:22
Acetaminophen [Tylenol] 1,000 mg PO NOW STA
02/13/24 16:25
Admit/Transfer Patient As Directed
Co-Sign Provider:
Level of Care: Inpatient admission
Assign to:: Medical/Surgical
Physician / Group: eleazar hoang
Diagnosis: R hip wound infection
Reason for Hospitalization: R hip wound infection
Expected length of stay greater than two midnights?: Yes
ELOS- Estimated Length of Stay in days: 3
I certify the patient meets the requirements for IP care: Yes
02/13/24 16:28
Code Status As Directed
Resuscitation Status: Do not resuscitate
Reached after discussion with pt or family/Healthcare POA: Yes
DNR Bracelet Application ONCE
02/13/24 17:44
Dextrose 50%-Water [Dextrose 50% Syringe] 12.5 grams IV [id number] PRN
Glucagon [GlucaGen] 1 mg IM PRN PRN
Insulin Aspart Corrective Mod [Novolog Flexpen-Moderate Resistance] See Protocol SC AC
Insulin Aspart Pen [Novolog Flexpen] 3 units SC DAILY@1630
Ondansetron Injectable [Zofran] 4 mg IV Q6HPRN PRN
Oxycodone [Roxicodone] 5 mg PO Q4HPRN PRN
02/13/24 17:44
INFECTIOUS DISEASE CONSULT Routine
Consulting Provider: Selena Green
Was physician already notified: Yes
Reason for consult: infected rip hip wound
ORTHOPEDIC CONSULT Routine
Consulting Provider: Edson Delgado
Was physician already notified: Yes
Activity As Directed
Activity Level: Ambulate
Bedside Glucose Monitoring As Directed
Frequency: AC&HS
Additional Instructions:: Change to q6h if pt on TPN, tube feeding or not eating
Vital Signs As Directed
Frequency: Per unit guidelines
Ot Eval And Treat Routine
Pt Eval And Treat Routine
Activity Level: Out of Bed-Early Mobility
DX Deep Vein Thrombosis Video Routine
02/14/24 06:00
Basic Metabolic Panel IN AM
Complete Blood Count/With Diff IN AM
Magnesium IN AM
02/14/24 07:30
Insulin Aspart Pen [Novolog Flexpen] 3 units SC DAILY@0730
02/14/24 08:00
Polyethylene Glycol Powder [Miralax] 17 grams PO DAILY
02/14/24 08:30
Diltiazem Extended Release [Cardizem Cd] 180 mg PO DAILY@0830
02/14/24 11:30
Insulin Aspart Pen [Novolog Flexpen] 3 units SC DAILY@1130
Abnormal Lab Results
02/13/24 02/13/24
14:23 14:26
RBC 3.49 L 10^6/uL
(4.20-5.40)
Hgb 10.0 L g/dL
(12.0-16.0)
Hct 30.6 L %
(37.0-47.0)
MCHC 32.7 L g/dL
(33.0-37.0)
Plt Count 410 H 10^3/uL
(130-400)
PT 18.6 H Sec
(11.4-14.6)
Sodium 132 L mmol/L
(135-145)
Creatinine 0.4 L mg/dL
(0.6-1.0)
Glucose 205 H mg/dl
(70-99)
Alkaline Phosphatase 137 H U/L
(38-126)
Albumin 3.4 L g/dl
(3.5-5.0)
02/13/24 14:23
02/13/24 14:23
Vital Signs
Initial and Last Documented VS:
Initial Vital Signs
Temp Pulse Resp BP Pulse Ox
98.5 F 78 21 109/60 98
02/13/24 14:03 02/13/24 14:03 02/13/24 14:03 02/13/24 14:03 02/13/24 14:03
Last Documented Vital Signs
Temp Pulse Resp BP Pulse Ox
98.9 F 97 18 116/53 96
02/13/24 17:54 02/13/24 17:54 02/13/24 17:54 02/13/24 17:54 02/13/24 17:54
MDM/Problems Addressed
Differential Diagnosis Includes:
Wound infection, abscess, prosthesis infection
MDM/Problems Addressed:
Patient sent to the emergency room from orthopedic office with the specific instructions to start IV antibiotics and hospitalize the patient. I reviewed the culture and sensitivity results from February 09. Klebsiella is sensitive to almost
everything except ampicillin. The Enterococcus is sensitive to ampicillin, gentamicin synergy and vancomycin. Patient has a penicillin allergy listed in the chart. The reaction is listed as hives. Cefazolin seems to be the antibiotic that has
the least chance of complications and is effective against the Klebsiella. Vancomycin will be used for the Enterococcus. These antibiotics will be started in the emergency room pending ID evaluation for any adjustments. Will discuss
hospitalization with the hospitalist service.
Chronic conditions affecting care: DM, CAD, Cardiomyopathy, Arrhythmia (Atrial fibrillation) and Other (Dementia)
*Critical Care Note
Total Time (30-74mins, 75-104mins- exclusive of procedures): Not Applicable
ED Attending Note
-
Portions of this chart may have been created with voice recognition software.� Occasional wrong word or��sound alike� substitutions may have occurred due to the inherent limitations of voice recognition software.
Discharge Plan
Departure
Patient Disposition: Admit
Date of Disposition: 02/13/24
Time of Disposition: 14:50
Admit to: Med/Surg
Presentation/result/management discussed w/ accepting MD/DO: Hospitalist
Condition: Fair
Discharge Problem:
Postoperative wound infection of right hip
Interventions
Interventions:
*General Assessment Last Done: 02/13/24 14:13
*Neglect/Abuse Screening Last Done: 02/13/24 14:13
ED- Fall Risk Assessment Last Done: 02/13/24 14:13
*Nursing Disposition Last Done: 02/13/24 17:57
ED-Skin Assessment Last Done: 02/13/24 14:13
Discharge Date and Time
Discharge Date/Time: 02/13/24 17:57
[2024-02-13 14:34] LABS: % Basophils 0.6 % (0-2); % Eosinophils 1.4 % (0-6); % Immature Granulocytes 0.5 % (0-0.5); % Lymphocytes 22.6 % (20.5-51.1); % Monocytes 8.1 % (1.7-9.3); % Neutrophils 66.8 % (42.2-75.2); Absolute Eosinophils 0.1 10^3/uL (0-0.7); Absolute Lymphocytes 1.5 10^3/uL (1.2-3.4); Absolute Monocytes 0.5 10^3/uL (0.1-0.6); Absolute Neutrophils 4.4 10^3/uL (1.4-6.5); Hematocrit 30.6 % (37.0-47.0); Mean Corp Hgb Conc. 32.7 g/dL (33.0-37.0); Mean Corpuscular Hgb 28.7 pg (27.0-31.0); Mean Corpuscular Volume 87.7 fL (81.0-99.0); Mean Platelet Volume 9.4 fL (7.4-10.4); Nucleated Red Blood Cells % 0 %; Platelet Count 410 10^3/uL (130-400); Red Blood Cell Count 3.49 10^6/uL (4.20-5.40); Red Cell Dist. Width 14.1 % (11.5-14.5); White Blood Cell Count 6.6 10^3/uL (4.8-10.8)
[2024-02-13 14:42] LABS: INR 1.54; PT 18.6 Sec (11.4-14.6)
[2024-02-13 14:47] LABS: Lactic Acid 1.5 mmol/L (0.7-2.0)
[2024-02-13 14:48] LABS: ALT (SGPT) 15 U/L (0-35); AST (SGOT) 18 U/L (14-36); Albumin 3.4 g/dl (3.5-5.0); Alkaline Phosphatase 137 U/L (38-126); Blood Urea Nitrogen 8 mg/dl (7-17); Carbon Dioxide 27 mmol/L (22-30); Chloride 101 mmol/L (98-107); Glucose 205 mg/dl (70-99); Potassium 4.1 mmol/L (3.5-5.1); Sodium 132 mmol/L (135-145); Total Bilirubin 0.8 mg/dl (0.2-1.3); Total Protein 6.3 g/dl (6.3-8.2); eGFR > 60.00
[2024-02-13 15:00] VITALS: BP 112/63
[2024-02-13] MEDS: ANCEF 10 IV (15:06)
[2024-02-13] MEDS: VANCOCIN 540 MG IV (15:28)
[2024-02-13] MEDS: ROXICODONE 5 MG PO (15:33)
[2024-02-13 16:00] VITALS: BP 112/73
--- NOTE | 2024-02-13 16:08 | HPS.HSE ---
Addendum entered and electronically signed by Jeromy Lopez MD 02/25/24 16:15:
Home Medications Table - record
�Medication �Instructions �Recorded �Confirmed
acetaminophen 325 mg tablet 650 mg PO Q4HPRN PRN mild 10/26/20 02/13/24
pain/fever>100.4
apixaban 5 mg tablet (Eliquis) 5 mg PO BID@0830,1830 Blood clot 10/26/20 02/13/24
prevention/tx
nitroglycerin 0.4 mg sublingual 0.4 mg sublingual [id number] PRN 09/03/21 02/13/24
tablet chest pain
diltiazem HCl 180 mg 180 mg PO DAILY@0830 Arrhythmia 02/13/22 02/13/24
capsule,extended release 24 hr
epinephrine 0.3 mg/0.3 mL 0.3 mg IM DAILYPRN PRN ANAPHYLAXIS 10/30/22 02/13/24
injection, auto-injector
pravastatin 40 mg tablet 40 mg PO DAILY@1830 High 10/30/22 02/13/24
Cholesterol
bisacodyl 10 mg rectal suppository 10 mg W[place] [id number] PRN lack of 01/21/24 02/13/24
BM/MOM ineffective
cholecalciferol (vitamin D3) 250 750 mcg PO QMONTH@0830 Supplement 01/21/24 02/13/24
mcg (10,000 unit) tablet
magnesium hydroxide 400 mg/5 mL 30 ml PO HSPRN PRN lack of BM 01/21/24 02/13/24
oral suspension (Milk of Magnesia)
Saccharomyces boulardii 250 mg 250 mg PO BID@0830,1800 02/13/24 02/13/24
capsule (Probiotic (S.boulardii)) Gastrointestinal Issue
sennosides 8.6 mg-docusate sodium 1 tab PO DAILY@1830 Constipation 02/13/24 02/13/24
50 mg tablet (Stool
Softener-Stimulant Laxative)
amoxicillin 875 mg-potassium 1 tab PO Q12 0 days #11 tabs 02/22/24
clavulanate 125 mg tablet
insulin glargine 100 unit/mL 18 unit (0.18 mL) SC DAILY@1830 02/22/24 02/13/24
subcutaneous solution Diabetes #0 mL
oxycodone 10 mg tablet 10 mg PO [id number] PRN severe pain 5 02/22/24
days #10 tabs
oxycodone 5 mg tablet 5 mg PO [id number] PRN moderate pain 02/22/24
5 days #10 tabs
Original Note:
Family Physician
-
Family Physician: NOT KNOW UNKNOWN - PT DOES
Chief Complaint
-
Right hip wound infection
History of Present Illness
68-year-old female with a past medical history of right proximal femur fracture status post right hip gamma nail/03/[address] Delgado, dementia residing at [facility], anemia, ambulatory dysfunction, right BKA in 2020, thrombophilia, and
paroxysmal atrial fibrillation on [facility] presents with an infection of her right surgical hip wound. Patient was seen by orthopedic surgery in the office. She had wound cultures, growing Klebsiella, Enterococcus, sensitive to Ancef and
vancomycin. Currently her pain is 4 out of 10 in intensity. She denies fever. No chest pain, no shortness of breath, no palpitations. No nausea, no vomiting. No abdominal pain. She does complain of dysuria. No black or bloody stools.
Medical History
Past Medical History
Past Medical History: Reports Other
Additional Past Medical History:
Recent right proximal femur fracture status post surgery
Paroxysmal A-fib
CAD/ID,/cardiac stents x 4
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
Ovarian cancer 2007
GERD
HLD
DM2
Depression
Dementia�mild
Primary thrombophilia patient unsure which type
DVT/IVC filter
PVD
History left foot ulcer
Chronic ambulatory dysfunction secondary to right BKA 2020(gangrene/DM2/PVD) wears prosthetic leg
UTIs
Anemia
Past Surgical History: Reports Other
Additional Past Surgical History:
Right femur gamma nail
Cardiac stents x 4
Cholecystectomy
Hysterectomy
Bilateral rotator cuff repair
Laminectomy
Right BKA secondary to PVD/gangrene/DM2 2020
IVC filter for DVT
Social History
Tobacco: Non-smoker
Alcohol: None
Drug: None
Living: Detention ([facility])
Family History
Family History: Not pertinent
Allergies / Home Medications
Allergies reflects when Allergies were last updated in [facility].
Home Medications with original date entered in [facility]
Allergy/Medication List:
Allergies
Allergy/AdvReac Type Severity Reaction Status Date / Time
Penicillins Allergy Hives Verified 02/13/24 14:07
Review of Systems
-
A 12 point ROS was completed and negative except as noted: Yes
Physical Exam
Vital Signs
Vital Signs
Temp Pulse Resp BP Pulse Ox
98.5 F 75 18 109/60 98
02/13/24 14:03 02/13/24 14:30 02/13/24 14:30 02/13/24 14:03 02/13/24 14:30
Physical Exam
General: No Apparent Distress
HEENT: NormoCephalic, Moist mucous membranes and Atraumatic
Respiratory: Clear
Cardiac: S1/S2 and Irregular Rhythm
GI: Soft, Non Tender, Non Distended and Normal Bowel Sounds
Musculoskeletal: No Clubbing, No Cyanosis and Other (Right BKA noted)
Skin: Other (Right hip surgical wound dressed)
Neuro: Awake and Alert
Psych: Calm
Laboratory Results
-
02/13/24 14:23
02/13/24 14:23
Laboratory Results
PT 18.6 Sec (11.4-14.6) H 02/13/24 14:26
INR 1.54 02/13/24 14:26
Lactic Acid 1.5 mmol/L (0.7-2.0) 02/13/24 14:23
Total Bilirubin 0.8 mg/dl (0.2-1.3) 02/13/24 14:23
AST 18 U/L (14-36) 02/13/24 14:23
ALT 15 U/L (0-35) 02/13/24 14:
Alkaline Phosphatase 137 U/L (38-126) H 02/13/24 14:23
Impression/Plan
-
HPI: 68-year-old female with a past medical history of right proximal femur fracture status post right hip gamma nail/03/[address] Delgado, dementia residing at [facility], anemia, ambulatory dysfunction, right BKA in 2020, thrombophilia, and
paroxysmal atrial fibrillation on Eliquis presents with an infection of her right surgical hip wound. Patient was seen by orthopedic surgery in the office. She had wound cultures, growing Klebsiella, Enterococcus, sensitive to Ancef and
vancomycin. Currently her pain is 4 out of 10 in intensity. She denies fever. No chest pain, no shortness of breath, no palpitations. No nausea, no vomiting. No abdominal pain. She does complain of dysuria. No black or bloody stools.
#Right hip surgical wound infection
Outpatient wound cultures grew out Klebsiella and Enterococcus, sensitive to Ancef and vancomycin
Hold Eliquis, continue Ancef, vancomycin
Consult ID/orthopedic surgery
Give Tylenol 1 g 3 times daily, oxycodone as needed
#Chronic ambulatory dysfunction secondary to right BKA
PT/OT
#Dementia, unknown type
Resides at [facility]
#Paroxysmal atrial fibrillation
Hold Eliquis in case she needs procedure
Continue diltiazem
#Type 2 diabetes
Continue glargine 15 units 3 times a day, add NovoLog 3 units AC 3 times daily
Sliding scale insulin, diabetic diet
#Hyperlipidemia
Continue statin
#Chronic anemia
Monitor hemoglobin
DVT prophylaxis�will give therapeutic Lovenox while holding Eliquis
DNR
Total time spent to see the patient on the floor, examine the patient, review data and lab results, discuss treatment plan with patient, nursing staff around 75 minutes.
--- NOTE | 2024-02-13 16:28 | CON.ID ---
Consultation
-
Date/Time Consultation Requested: February 13, 2024 1449
Date/Time Consultation Performed: February 13, 2024 1630
Requesting Provider: Dr. Den Matos
Performing Provider: Dr. Selena Green
Reason for Consultation: Post-op right hip wound infection
Chief Complaint / Past History
Chief Complaint
Hip wound infection
History of Present Illness
68-year-old female from [facility] with history of diabetes mellitus, CAD, atrial fibrillation, PAD status post right BKA, who was recently hospitalized from January 20 to January 26 after mechanical fall sustaining right proximal femur fracture and underwent
gamma nailing. She was discharged back through [facility]. Per patient soon after there was drainage from the right hip incision. Initially it was clear yellowish fluid. However the drainage became thicker and brown in color. She was
started on cefadroxil on February 06 without improvement. She was sent to the ER on February 09 at which time drainage was swabbed for culture. She was seen at the orthopedics office today who sent her to the ER. There continues to be drainage from the
incision. Patient denies fevers or chills. She does have increasing pain at the hip site. Still able to ambulate with a rollator. She received vancomycin and cefazolin in the ER.
Past History
Additional Past Medical History:
Diabetes mellitus type 2
Dyslipidemia
CAD status post stents
Ischemic cardiomyopathy
Atrial fibrillation
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
PAD status post right BKA
DVT status post IVC filter placement
Depression
Thrombophilia
Cholecystectomy
Bilateral rotator cuff repair
Laminectomy
Left hip fracture status post gamma nailing in 2020
Right proximal femur fracture status post gamma nail January 24, 2024
Allergy History:
Penicillins Allergy (Verified 02/13/24 14:07)
Hives
Medications Reviewed: Yes
Current Antibiotics:
Vancomycin
cefazolin
Social History
Tobacco: Non-Smoker
Alcohol: None
Drug: None
Living: Halfway
Family History
Family History: Not Pertinent
Review of Systems
Review of Systems
General: Negative Fever, Chills or Change in Appetite
Gasteroenterology: Other (no diarrhea); Negative Nausea or Vomiting
Genital / Urological: Negative Dysuria or Flank Pain
Endocrine: Negative Weakness
Neurological: Negative Headache or Dizziness
All systems: All other systems were reviewed and were negative
Vital Signs
Temp Pulse Resp BP Pulse Ox
98.5 F 75 18 109/60 98
02/13/24 14:03 02/13/24 14:30 02/13/24 14:30 02/13/24 14:03 02/13/24 14:30
Physical Exam
Physical Exam
Constitutional: No Acute Distress and Comfortable
Eyes: No Conjunctival Hemorrhage and Sclera Anicteric
Cardiovascular: Irregular Rate and S1/S2
Pulmonary: Clear
Genito-Urinary: Negative CVA Tenderness
Extremities: Negative Edema (Right BKA/LLE)
Wound: Other (Right hip incision with amado in place, + erythema and warmth, expressed thin cloudy cream-yellow fluid from the 3 sites along the incision)
Neurological: AO x 3
Lab / Diagnostic Study Results
02/13/24 14:23
02/13/24 14:23
Abs Immat Gran (auto) 0.0 10^3/uL (0-0.05) 02/13/24 14:23
Absolute Neuts (auto) 4.4 10^3/uL (1.4-6.5) 02/13/24 14:23
Absolute Lymphs (auto) 1.5 10^3/uL (1.2-3.4) 02/13/24 14:23
Absolute Monos (auto) 0.5 10^3/uL (0.1-0.6) 02/13/24 14:23
Absolute Basos (auto) 0.0 10^3/uL (0-0.2) 02/13/24 14:23
Immature Gran % 0.5 % (0-0.5) 02/13/24 14:23
Neutrophils % 66.8 % (42.2-75.2) 02/13/24 14:23
Lymphocytes % 22.6 % (20.5-51.1) 02/13/24 14:23
Monocytes % 8.1 % (1.7-9.3) 02/13/24 14:23
Eosinophils % 1.4 % (0-6) 02/13/24 14:
Basophils % 0.6 % (0-2) 02/13/24 14:
PT 18.6 Sec (11.4-14.6) H 02/13/24 14:26
INR 1.54 02/13/24 14:26
Lactic Acid 1.5 mmol/L (0.7-2.0) 02/13/24 14:23
Microbiology Results
Micro:
02/13/24 14:23 Blood Culture - Pending
Blood/Venous
Assessment / Plan
# Post-op right hip SSTI
- recent right prox femur fracture gamma nailing 01/24/2024.
- 02/10/2024 superficial swab of drainage - Klebsiella, E. faecalis - > which may not reflect deeper organisms
- Recommend OR I+D of wound, OBTAIN DEEP CULTURES, and determine whether or not infection extends to prosthesis.
-PATIENT IS HEMODYNAMICALLY STABLE. HOLD FURTHER ANTIBIOTICS TO INCREASE INTRA-OP CULTURE YIELD.
# Hx of PCN allergy
-per patient occurred when she was young and could not recall reaction.
- Per SNF 'hives' from allergy.
- The majority of individuals outgrow their PCN allergy. After OR, recommend challenge with Unasyn.
[2024-02-13] MEDS: TYLENOL 1000 MG PO (16:41)
[2024-02-13 17:00] VITALS: BP 114/64
[2024-02-13 17:54] VITALS: BP 116/53
[2024-02-13 18:12] LABS: Glucose - Point of Care 154 mg/dl (70-99)
[2024-02-13] MEDS: LANTUS 0.149999999999999994 UNITS SC (18:14)
[2024-02-13] MEDS: NOVOLOG FLEXPEN-MODERATE RESISTANCE SC (18:31)
[2024-02-13] MEDS: NOVOLOG FLEXPEN SC (18:32)
[2024-02-13] MEDS: LOVENOX 90 MG SC (20:22)
[2024-02-13 21:20] LABS: Glucose - Point of Care 213 mg/dl (70-99)
[2024-02-13 23:14] VITALS: BP 100/60
[2024-02-14 06:00] VITALS: BMI 26.6
[2024-02-14] MEDS: ROXICODONE 5 MG PO ×3 (06:22→20:14)
[2024-02-14] MEDS: NOVOLOG FLEXPEN-MODERATE RESISTANCE SC (06:30)
[2024-02-14] MEDS: NOVOLOG FLEXPEN SC (06:30)
[2024-02-14 06:49] LABS: % Basophils 0.5 % (0-2); % Eosinophils 2.6 % (0-6); % Immature Granulocytes 0.2 % (0-0.5); % Lymphocytes 26.9 % (20.5-51.1); % Monocytes 7.7 % (1.7-9.3); % Neutrophils 62.1 % (42.2-75.2); Absolute Eosinophils 0.2 10^3/uL (0-0.7); Absolute Lymphocytes 1.5 10^3/uL (1.2-3.4); Absolute Monocytes 0.4 10^3/uL (0.1-0.6); Absolute Neutrophils 3.5 10^3/uL (1.4-6.5); Hemoglobin 10.1 g/dL (12.0-16.0); Mean Corp Hgb Conc. 31.6 g/dL (33.0-37.0); Mean Corpuscular Hgb 28.6 pg (27.0-31.0); Mean Corpuscular Volume 90.7 fL (81.0-99.0); Mean Platelet Volume 9.4 fL (7.4-10.4); Nucleated Red Blood Cells % 0 %; Platelet Count 370 10^3/uL (130-400); Red Blood Cell Count 3.53 10^6/uL (4.20-5.40); Red Cell Dist. Width 14.2 % (11.5-14.5); White Blood Cell Count 5.7 10^3/uL (4.8-10.8)
[2024-02-14 07:25] LABS: Blood Urea Nitrogen 8 mg/dl (7-17); Calcium 9.1 mg/dl (8.4-10.2); Carbon Dioxide 27 mmol/L (22-30); Chloride 104 mmol/L (98-107); Estimated Creatinine Clearance 91 ml/min; Glucose 207 mg/dl (70-99); Potassium 5.3 mmol/L (3.5-5.1); Sodium 136 mmol/L (135-145); eGFR > 60.00
[2024-02-14 07:30] VITALS: BP 158/82
[2024-02-14 07:40] VITALS: BMI 26.6
[2024-02-14] MEDS: LOVENOX 90 MG SC ×2 (07:40→20:11)
[2024-02-14] MEDS: MIRALAX 17 GRAMS PO (07:41)
--- NOTE | 2024-02-14 07:41 | W.PN.UPDATE ---
Addendum entered and electronically signed by Edson Delgado MD 02/14/24 13:45:
68-year-old female with multiple comorbidities including atrial fibrillation on Eliquis, DVT status post IVC filter, insulin-dependent diabetes mellitus, coronary artery disease status post myocardial infarction and cardiac stents x 4, peripheral
arterial disease resulting in right below-knee amputation, and GERD. She sustained a right hip intertrochanteric fracture earlier this month and underwent a right hip gamma nail on 01/24/2024 above her right BKA. Recently, she was noted to have
increased drainage and a likely infection of her proximal right thigh surgical wound. She has been admitted to [facility] for intravenous antibiotics. Antibiotics will be continued throughout the weekend. She is on Eliquis, and Eliquis
has been placed on hold in preparation for possible surgical treatment (I&D of right hip/thigh wound) tentatively scheduled for February 16. I have discussed surgical treatment in detail with the patient. Risks, benefits, and possible
complications of surgical treatment have been discussed. Patient questions have been answered. Alternative treatments have been discussed. Patient consents to right hip surgery as well as a blood transfusion if required during this admission.
Consent has been placed on chart. Surgical site has been marked. She is to be n.p.o. for surgery on February 16. I have discussed her case and my concerns in detail with Dr. Selena Green from infectious diseases.
Original Note:
Update Note
Progress Note Update
68-year-old female status post right cephalomedullary nail fixation with Dr. Delgado 24 January 2024 admitted for concern about infection regarding the right hip. Patient was seen in outpatient basis on 06 February 2024 with concern for superficial
infection of her incision. She was placed on cefadroxil 500 mg twice daily. She had a subsequent visit at the emergency room at [facility] on 09 February 2024 for discharge from the incision site turning to brown color; she was discharged
without significant changes due to lack of erythema. Cultures were taken at that time. She was subsequent seen in the office on 13 February 2024 and recommended for consideration of IV antibiotics with the culture results from previous ER visit. She
reports there is been some continued drainage from incision site but reports minimal pain
Examination of the right hip surgical incision of the lateral hip with amado in place. There is a mild amount of wound dehiscence towards the central aspect. Minimal erythema. Testing for discharge with manual pressure. Neurovascular intact
L3-S1 and minimal pain with logroll testing of the right lower extremity
X-rays done in the outpatient office unremarkable 06 February 2024. WBC 5.7
At this time recommend ESR and CRP and CBC with differential ordered for Saturday and Saturday with tentative OR for Saturday depending on clinical presentation for possible debridement irrigation on Saturday based on clinical course of IV antibiotics.
Continue with dressing changes as needed and will continue to monitor
[2024-02-14] MEDS: VITAMIN D3 (cholecalciferol) 750 MCG PO (07:42)
[2024-02-14] MEDS: CARDIZEM CD 180 MG PO (07:42)
[2024-02-14 08:10] LABS: Glucose - Point of Care 205 mg/dl (70-99)
[2024-02-14] MEDS: NOVOLOG FLEXPEN-MODERATE RESISTANCE 3 UNITS SC ×2 (08:12→17:02)
[2024-02-14] MEDS: NOVOLOG FLEXPEN 3 UNITS SC ×3 (08:12→17:01)
--- NOTE | 2024-02-14 08:34 | W.PN.HOSP.TC ---
Today's Communication/Plan
-
See bold
Assessment / Plan
Assessment / Plan
HPI: HPI: 68-year-old female with a past medical history of right proximal femur fracture status post right hip gamma nail/03/[address] Delgado, dementia residing at [facility], anemia, ambulatory dysfunction, right BKA in 2020, thrombophilia,
and paroxysmal atrial fibrillation on Eliquis presents with an infection of her right surgical hip wound. Patient was seen by orthopedic surgery in the office. She had wound cultures, growing Klebsiella, Enterococcus, sensitive to Ancef and
vancomycin. Currently her pain is 4 out of 10 in intensity. She denies fever. No chest pain, no shortness of breath, no palpitations. No nausea, no vomiting. No abdominal pain. She does complain of dysuria. No black or bloody stools.
#Right hip surgical wound infection
Outpatient wound cultures grew out Klebsiella and Enterococcus, sensitivities reviewed
Appreciate ID and orthopedic surgery input
Hold Eliquis for possible surgical I&D on Friday 02/16, ID recommends Unasyn
Tylenol 1 g 3 times daily, oxycodone as needed
#Chronic ambulatory dysfunction secondary to right BKA
PT/OT
#Dementia, unknown type
Resides at [facility]
#Paroxysmal atrial fibrillation
Hold Eliquis
Continue diltiazem
#Type 2 diabetes
Continue glargine 15 units 3 times a day, add NovoLog 3 units AC 3 times daily
Sliding scale insulin, diabetic diet
#Hyperkalemia
Low potassium diet, laxatives
#Hyperlipidemia
Continue statin
#Chronic anemia
Monitor hemoglobin
DVT prophylaxis�therapeutic Lovenox while holding Eliquis (hold lovenox saturday)
DNR
Total time spent to see the patient on the floor, examine the patient, review data and lab results, discuss treatment plan with patient, nursing staff around 50 minutes.
Physical Exam
General: No Apparent Distress
HEENT: NormoCephalic, Moist mucous membranes and Atraumatic
Respiratory: Clear
Cardiac: S1/S2 and Irregular Rhythm
GI: Soft, Non Tender, Non Distended and Normal Bowel Sounds
Musculoskeletal: No Clubbing, No Cyanosis and Other (Right BKA noted)
Skin: Other (Right hip surgical wound dressed)
Neuro: Awake and Alert
Psych: Calm
Anticipated Discharge: > 48 hours
Subjective/Interval History
-
Date of Service: February 14, 2024
Patient reports her right hip pain is tolerable. No fever, no vomiting. No chest pain, no shortness of breath.
Objective Data
-
Labs:
Laboratory Results
02/14/24
06:28
WBC 5.7
Hgb 10.1 L
Hct 32.0 L
Plt Count 370
Sodium 136
Potassium 5.3 H D
Chloride 104
Carbon Dioxide 27
BUN 8
Creatinine 0.4 L
Glucose 207 H
Calcium 9.1
Vital Signs:
Vital Signs
Temp Pulse Resp BP Pulse Ox
97.7 F 79 16 100/60 96
02/13/24 23:14 02/13/24 23:14 02/13/24 23:14 02/13/24 23:14 02/13/24 23:14
[2024-02-14 09:00] VITALS: BP 158/82
[2024-02-14 10:23] VITALS: BMI 26.6
[2024-02-14 11:15] VITALS: BP 124/67; PULSE 85; O2SAT 97
--- NOTE | 2024-02-14 11:28 | W.PN.ID1 ---
Addendum entered and electronically signed by Selena Green MD 02/14/24 16:16:
Spoke to Dr. Delgado. He is planning to washout the hip on Saturday while awaiting Eliquis washout. He is requesting starting IV abx now.
I will start abx to target current superficial swab cx. However, I asked him to please, please obtain OR cultures even while on abx, as deep cultures may be different from superficial (contaminated culture). He states he will send cultures in OR.
Original Note:
Date of Service
Date of Service: February 14, 2024
Today's Communication
Hold abx to increase intra-op culture yield.
Assessment / Plan
# Post-op right hip SSTI
- recent right prox femur fracture gamma nailing 01/24/2024.
- 02/10/2024 superficial swab of drainage - Klebsiella, E. faecalis - > which may not reflect deeper organisms
- Recommend OR I+D of wound, OBTAIN DEEP CULTURES, and determine whether or not infection extends to prosthesis.
-PATIENT IS HEMODYNAMICALLY STABLE. HOLD FURTHER ANTIBIOTICS TO INCREASE INTRA-OP CULTURE YIELD.
# Hx of PCN allergy
-per patient occurred when she was young and could not recall reaction.
- Per SNF 'hives' from allergy.
- The majority of individuals outgrow their PCN allergy. After OR, recommend challenge with Unasyn.
#Additional Past Medical History:
Diabetes mellitus type 2
Dyslipidemia
CAD status post stents
Ischemic cardiomyopathy
Atrial fibrillation
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
PAD status post right BKA
DVT status post IVC filter placement
Depression
Thrombophilia
Cholecystectomy
Bilateral rotator cuff repair
Laminectomy
Left hip fracture status post gamma nailing in 2020
Right proximal femur fracture status post gamma nail January 24, 2024
Chief Complaint
-: Cellulitis
Subjective / Review of Systems
No new complaints
Vital Signs / Physical Exam
Vital Signs
Vital Signs
Temp Pulse Resp BP Pulse Ox
98.5 F 72 18 158/82 97
02/14/24 07:30 02/14/24 07:30 02/14/24 07:30 02/14/24 07:30 02/14/24 07:40
Physical Exam
Constitutional: No Acute Distress
Cardiovascular: Regular Rate
Pulmonary: Clear
Gastrointestinal: Non Tender
Wound: Other (Right hip incision + erythema, dressing with discharge)
Neurological: AO x 3
Objective Data
Lab Data
Lab Results
02/14/24 06:28
02/14/24 06:28
PT 18.6 Sec (11.4-14.6) H 02/13/24 14:26
INR 1.54 02/13/24 14:26
Estimated Creat Clear 91 ml/min 02/14/24 06:28
Lactic Acid 1.5 mmol/L (0.7-2.0) 02/13/24 14:23
Total Bilirubin 0.8 mg/dl (0.2-1.3) 02/13/24 14:23
AST 18 U/L (14-36) 02/13/24 14:23
ALT 15 U/L (0-35) 02/13/24 14:23
Alkaline Phosphatase 137 U/L (38-126) H 02/13/24 14:23
Most recent labs reviewed.
Micro Results:
02/13/24 14:23 Blood Culture - Pending
Blood/Venous
[2024-02-14 12:02] LABS: Glucose - Point of Care 186 mg/dl (70-99)
[2024-02-14] MEDS: NOVOLOG FLEXPEN-MODERATE RESISTANCE 1 UNITS SC (12:19)
[2024-02-14] MEDS: DUPHALAC/CHRONULAC 20 GRAMS PO ×2 (12:27→20:11)
--- NOTE | 2024-02-14 12:47 | WOUNDNOTE ---
[facility] RN note: Patient admitted with right hip wound infection
See H&P for complete history.
PMH: DM2, CAD post stents, A-ib, PAD s/p R BKA. DVT, left hip fx, right proximal femur fx s/p gamma nail 01/24/2024.
Wound Location and type/assessment: Patient admitted with: Stage 2 sacral PI. Wound is pink, surrounded by friction appearing skin. Left heel with raised, rough skin covered with Betadine. Picture obtained of right hip sutures and surgery is
following.
Appetite: States good
Pressure redistribution devices in place: Versa [employer] Air
Plan: [facility] called for sacral foam dressing and left heel fiber filled boot. HEIDE Rivas covered hip with sterile gauze dressing.Will confirm orders with hospitalist and update nurse. Updated care plan and will follow as needed.
--- NOTE | 2024-02-14 13:55 | WOUNDNOTE ---
WO RN NOTE: Patient visited to apply adhesive foam to heel. Patient refused saying 'I'm starting anything new!' Patient instructed on rationale of foam on heel wound but she continued to refuse. Patient is agreeable to wearing fiber-filled boot. RN
Evelyn given update.
[2024-02-14 15:07] VITALS: BP 108/58
--- NOTE | 2024-02-14 16:14 | CM ---
Patient seen bedside, initial assessment completed. CM spoke with Selene in admissions at [facility], patient is LTC resident, able to accept patient back for SNF when stable. Patient typically ambulates with wheelchair. Pharmacy used [facility]. CM will continue to follow for discharge planning needs.
Plan; return to [facility] SNF when stable.
[facility]
Report: [phone]
[2024-02-14 17:00] LABS: Glucose - Point of Care 209 mg/dl (70-99)
[2024-02-14] MEDS: UNASYN IV ×2 (17:02→21:53)
[2024-02-14] MEDS: LANTUS 0.149999999999999994 UNITS SC (17:59)
[2024-02-14 22:48] LABS: Glucose - Point of Care 188 mg/dl (70-99)
[2024-02-14 23:39] VITALS: BP 93/56
[2024-02-15 04:39] VITALS: BMI 27.0
[2024-02-15] MEDS: UNASYN IV ×4 (04:45→21:30)
[2024-02-15 07:00] VITALS: BP 110/64
[2024-02-15 07:30] LABS: Glucose - Point of Care 199 mg/dl (70-99)
--- NOTE | 2024-02-15 07:54 | W.PN.HOSP.TC ---
Today's Communication/Plan
-
see bold
Assessment / Plan
Assessment / Plan
HPI: HPI: 68-year-old female with a past medical history of right proximal femur fracture status post right hip gamma nail/03/[address] Delgado, dementia residing at [facility], anemia, ambulatory dysfunction, right BKA in 2020, thrombophilia,
and paroxysmal atrial fibrillation on Eliquis presents with an infection of her right surgical hip wound. Patient was seen by orthopedic surgery in the office. She had wound cultures, growing Klebsiella, Enterococcus, sensitive to Ancef and
vancomycin. Currently her pain is 4 out of 10 in intensity. She denies fever. No chest pain, no shortness of breath, no palpitations. No nausea, no vomiting. No abdominal pain. She does complain of dysuria. No black or bloody stools.
#Right hip surgical wound infection
Outpatient wound cultures grew out Klebsiella and Enterococcus, sensitivities reviewed
Appreciate ID and orthopedic surgery input
Hold Eliquis for possible surgical I&D on Friday 02/16, ID recommends Unasyn
Tylenol 1 g 3 times daily, oxycodone as needed, bowel regimen
#Chronic ambulatory dysfunction secondary to right BKA
PT/OT
#Dementia, unknown type
Resides at [facility]
#Paroxysmal atrial fibrillation
Hold Eliquis
Continue diltiazem
#Type 2 diabetes
Continue glargine 15 units 3 times a day, increase NovoLog 4 units AC 3 times daily
Sliding scale insulin, diabetic diet
#Hyperkalemia
Resolved
Low potassium diet, laxatives
#Hyperlipidemia
Continue statin
#Chronic anemia
Monitor hemoglobin
DVT prophylaxis�therapeutic Lovenox while holding Eliquis (hold lovenox saturday)
DNR
Total time spent to see the patient on the floor, examine the patient, review data and lab results, discuss treatment plan with patient, nursing staff around 35 minutes.
Physical Exam
General: No Apparent Distress
HEENT: NormoCephalic, Moist mucous membranes and Atraumatic
Respiratory: Clear
Cardiac: S1/S2 and Irregular Rhythm
GI: Soft, Non Tender, Non Distended and Normal Bowel Sounds
Musculoskeletal: No Clubbing, No Cyanosis and Other (Right BKA noted)
Skin: Other (Right hip surgical wound dressed)
Neuro: Awake and Alert
Psych: Calm
Anticipated Discharge: > 48 hours
Subjective/Interval History
-
Date of Service: February 15, 2024
Right hip pain is tolerable. No fever, no vomiting. No CP/SOB.
Objective Data
-
Labs:
Laboratory Results
02/15/24
07:17
WBC Pending
Hgb Pending
Hct Pending
Plt Count Pending
Sodium Pending
Potassium Pending
Chloride Pending
Carbon Dioxide Pending
BUN Pending
Creatinine Pending
Glucose Pending
Calcium Pending
Vital Signs:
Vital Signs
Temp Pulse Resp BP Pulse Ox
98.3 F 88 18 93/56 96
02/14/24 23:39 02/14/24 23:39 02/14/24 23:39 02/14/24 23:39 02/14/24 23:39
I&O
02/14/24 02/15/24 02/16/24
06:59 06:59 06:59
Intake Total 540 / 540
Balance 540 / 540
[2024-02-15 08:11] LABS: Hemoglobin 9.8 g/dL (12.0-16.0); Mean Corp Hgb Conc. 31.6 g/dL (33.0-37.0); Mean Corpuscular Volume 88.6 fL (81.0-99.0); Mean Platelet Volume 9.6 fL (7.4-10.4); Platelet Count 357 10^3/uL (130-400); Red Cell Dist. Width 14.1 % (11.5-14.5); White Blood Cell Count 4.9 10^3/uL (4.8-10.8)
[2024-02-15 08:15] VITALS: BMI 27.0
[2024-02-15] MEDS: NOVOLOG FLEXPEN-MODERATE RESISTANCE 1 UNITS SC (08:17)
[2024-02-15] MEDS: NOVOLOG FLEXPEN 3 UNITS SC ×2 (08:17→11:51)
[2024-02-15] MEDS: LOVENOX 90 MG SC ×2 (08:18→20:54)
[2024-02-15] MEDS: MIRALAX 17 GRAMS PO (08:18)
[2024-02-15] MEDS: CARDIZEM CD 180 MG PO (08:18)
[2024-02-15] MEDS: DUPHALAC/CHRONULAC 20 GRAMS PO ×2 (08:18→20:53)
[2024-02-15 08:42] LABS: Blood Urea Nitrogen 7 mg/dl (7-17); Calcium 8.6 mg/dl (8.4-10.2); Carbon Dioxide 28 mmol/L (22-30); Chloride 103 mmol/L (98-107); Estimated Creatinine Clearance 91 ml/min; Glucose 177 mg/dl (70-99); Potassium 4.7 mmol/L (3.5-5.1); Sodium 135 mmol/L (135-145); eGFR > 60.00
--- NOTE | 2024-02-15 09:15 | W.PN.ID1 ---
Date of Service
Date of Service: February 15, 2024
Today's Communication
Continue Unasyn.
Assessment / Plan
# Post-op right hip SSTI
# Hx of PCN allergy
- recent right prox femur fracture gamma nailing 01/24/2024.
- 02/10/2024 superficial swab of drainage - Klebsiella, E. faecalis - > which may not reflect deeper organisms
- Recommend OR I+D of wound, OBTAIN DEEP CULTURES, and determine whether or not infection extends to prosthesis.
Patient is hemodynamically stable. I prefer to hold abx to increase intra-op yield.
However, ortho wants to start abx prior to washout on 02/17/24. Upon request, Ortho agreeable to still go ahead obtain OR cultures despite on IV abx.
- Started Unasyn yesterday. Patient tolerating PCN so far.
#Additional Past Medical History:
Diabetes mellitus type 2
Dyslipidemia
CAD status post stents
Ischemic cardiomyopathy
Atrial fibrillation
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
PAD status post right BKA
DVT status post IVC filter placement
Depression
Thrombophilia
Cholecystectomy
Bilateral rotator cuff repair
Laminectomy
Left hip fracture status post gamma nailing in 2020
Right proximal femur fracture status post gamma nail January 24, 2024
Chief Complaint
-: Cellulitis
Subjective / Review of Systems
No complaints today.
Vital Signs / Physical Exam
Vital Signs
Vital Signs
Temp Pulse Resp BP Pulse Ox
98.6 F 95 16 110/64 96
02/15/24 07:00 02/15/24 07:00 02/15/24 07:00 02/15/24 07:00 02/15/24 07:00
Physical Exam
Constitutional: No Acute Distress and Comfortable
Pulmonary: Clear
Gastrointestinal: Soft and Non Tender
Extremities: Negative Edema
Objective Data
Lab Data
Lab Results
02/15/24 07:17
02/15/24 07:17
PT 18.6 Sec (11.4-14.6) H 02/13/24 14:26
INR 1.54 02/13/24 14:26
Estimated Creat Clear 91 ml/min 02/15/24 07:17
Lactic Acid 1.5 mmol/L (0.7-2.0) 02/13/24 14:23
Total Bilirubin 0.8 mg/dl (0.2-1.3) 02/13/24 14:23
AST 18 U/L (14-36) 02/13/24 14:23
ALT 15 U/L (0-35) 02/13/24 14:23
Alkaline Phosphatase 137 U/L (38-126) H 02/13/24 14:23
Most recent labs reviewed.
Micro Results:
02/13/24 14:23 Blood Culture - Preliminary
Blood/Venous No Growth in 24 hours- Final report to follow
--- NOTE | 2024-02-15 09:32 | W.PN.ORTHO ---
Today's Communication / Plan
-
68yo female status post right cephalomedullary nail fixation with Dr. Delgado 24 January 2024
-Right hip wound culture positive for Klebsiella pneumoniae and Enterococcus faecalis
-Appreciate ID input. Patient currently on Unasyn
-Plan for OR Saturday02/17/[address] Delgado for I&D right hip
-Will need to be NPO after midnight on Saturday
-Continue pain management as needed
-Will continue to follow along
Assessment
.
Distal Motor Intact: Yes
Dressing:
Clean, dry and intact.
Plan
.
Activity:
Out of bed.
PT/OT
Subjective
.
.:
Patient resting comfortably in bed. Reports some discomfort in the hip
Vital Signs and Labs
.
Vital Signs and Labs:
Lab Results
02/15/24 07:17
02/15/24 07:17
Temp Pulse Resp BP Pulse Ox
98.6 F 95 16 110/64 96
02/15/24 07:00 02/15/24 07:00 02/15/24 07:00 02/15/24 07:00 02/15/24 07:00
PT 18.6 Sec (11.4-14.6) H 02/13/24 14:26
INR 1.54 02/13/24 14:26
Physical Exam
-
Examination of the right hip surgical incision of the lateral hip with amado in place. There is a mild amount of wound dehiscence towards the central aspect. Minimal erythema. Small amount of serous drainage on dressing. Neurovascular intact
L3-S1 and minimal pain with logroll testing of the right lower extremity
[2024-02-15 11:47] LABS: Glucose - Point of Care 247 mg/dl (70-99)
[2024-02-15] MEDS: NOVOLOG FLEXPEN-MODERATE RESISTANCE 3 UNITS SC (11:51)
[2024-02-15] MEDS: ROXICODONE 5 MG PO ×2 (13:10→20:52)
--- NOTE | 2024-02-15 13:26 | CM ---
Patient on IV anbx for hip infection.
Plan Or 02/16/23 I+D right hip.
[facility].
Plan; return to [facility] when stable.
[facility]
Report: [phone]
[2024-02-15 15:00] VITALS: BP 104/57
[2024-02-15 16:39] LABS: Glucose - Point of Care 97 mg/dl (70-99)
[2024-02-15] MEDS: NOVOLOG FLEXPEN 4 UNITS SC (17:00)
[2024-02-15] MEDS: NOVOLOG FLEXPEN-MODERATE RESISTANCE SC (17:00)
[2024-02-15] MEDS: LANTUS 0.170000000000000012 UNITS SC (17:57)
[2024-02-15 19:36] VITALS: BP 108/59
[2024-02-15 21:11] LABS: Glucose - Point of Care 177 mg/dl (70-99)
[2024-02-15 23:39] VITALS: BP 108/59
[2024-02-16] MEDS: UNASYN IV ×4 (04:10→21:15)
[2024-02-16 05:10] VITALS: BMI 27.0
[2024-02-16 07:38] VITALS: BP 113/60
[2024-02-16 08:29] LABS: Glucose - Point of Care 136 mg/dl (70-99)
[2024-02-16 09:07] LABS: Hematocrit 31.7 % (37.0-47.0); Hemoglobin 9.9 g/dL (12.0-16.0); Mean Corp Hgb Conc. 31.2 g/dL (33.0-37.0); Mean Corpuscular Hgb 28.4 pg (27.0-31.0); Mean Corpuscular Volume 90.8 fL (81.0-99.0); Mean Platelet Volume 9.7 fL (7.4-10.4); Platelet Count 328 10^3/uL (130-400); Red Blood Cell Count 3.49 10^6/uL (4.20-5.40); Red Cell Dist. Width 14.3 % (11.5-14.5); White Blood Cell Count 4.3 10^3/uL (4.8-10.8)
[2024-02-16] MEDS: DUPHALAC/CHRONULAC 20 GRAMS PO ×2 (09:23→20:45)
[2024-02-16] MEDS: MIRALAX 17 GRAMS PO (09:23)
[2024-02-16] MEDS: NOVOLOG FLEXPEN-MODERATE RESISTANCE SC (09:23)
[2024-02-16] MEDS: LOVENOX 90 MG SC (09:23)
[2024-02-16] MEDS: CARDIZEM CD 180 MG PO (09:24)
[2024-02-16] MEDS: NOVOLOG FLEXPEN 4 UNITS SC ×3 (09:25→16:10)
--- NOTE | 2024-02-16 09:25 | W.PN.UPDATE ---
Update Note
Progress Note Update
Patient resting comfortably in bed this morning. Her pain is well controlled
68yo female status post right cephalomedullary nail fixation with Dr. Delgado 24 January 2024
-Right hip wound culture positive for Klebsiella pneumoniae and Enterococcus faecalis
-Appreciate ID input. Patient currently on Unasyn
-Plan for OR Saturday02/17/[address] Delgado for I&D right hip
-NPO for surgery
-Continue pain management as needed
-Will continue to follow along
[2024-02-16 09:31] LABS: Blood Urea Nitrogen 5 mg/dl (7-17); Calcium 8.8 mg/dl (8.4-10.2); Carbon Dioxide 29 mmol/L (22-30); Chloride 103 mmol/L (98-107); Estimated Creatinine Clearance 91 ml/min; Glucose 136 mg/dl (70-99); Potassium 4.2 mmol/L (3.5-5.1); Sodium 137 mmol/L (135-145); eGFR > 60.00
[2024-02-16 11:52] LABS: Glucose - Point of Care 179 mg/dl (70-99)
[2024-02-16] MEDS: NOVOLOG FLEXPEN-MODERATE RESISTANCE 1 UNITS SC (12:26)
--- NOTE | 2024-02-16 13:03 | W.PN.ID1 ---
Date of Service
Date of Service: February 16, 2024
Today's Communication
Continue Unasyn.
Hip washout tomorrow, to send OR cultures.
Assessment / Plan
# Post-op right hip SSTI
# Hx of PCN allergy
- recent right prox femur fracture gamma nailing 01/24/2024.
- 02/10/2024 superficial swab of drainage - Klebsiella, E. faecalis - > which may not reflect deeper organisms
- Recommend OR I+D of wound, obtain deep cultures, and determine whether or not infection extends to prosthesis.
Patient is hemodynamically stable. I prefered to hold abx to increase intra-op yield.
However, ortho wanted to start abx prior to washout on 02/17/24. Upon request, Ortho agreeable to still go ahead obtain OR cultures despite on IV abx.
- Continue Unasyn (d3)
#Additional Past Medical History:
Diabetes mellitus type 2
Dyslipidemia
CAD status post stents
Ischemic cardiomyopathy
Atrial fibrillation
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
PAD status post right BKA
DVT status post IVC filter placement
Depression
Thrombophilia
Cholecystectomy
Bilateral rotator cuff repair
Laminectomy
Left hip fracture status post gamma nailing in 2020
Right proximal femur fracture status post gamma nail January 24, 2024
Chief Complaint
-: Cellulitis
Subjective / Review of Systems
No complaints.
Vital Signs / Physical Exam
Vital Signs
Vital Signs
Temp Pulse Resp BP Pulse Ox
99.3 F 81 16 113/60 95
02/16/24 07:38 02/16/24 07:38 02/16/24 07:38 02/16/24 07:38 02/16/24 07:38
Physical Exam
Constitutional: No Acute Distress
Cardiovascular: Regular Rate and S1/S2
Pulmonary: Clear
Wound: Other
Objective Data
Lab Data
Lab Results
02/16/24 08:37
02/16/24 08:37
PT 18.6 Sec (11.4-14.6) H 02/13/24 14:26
INR 1.54 02/13/24 14:26
Estimated Creat Clear 91 ml/min 02/16/24 08:37
Lactic Acid 1.5 mmol/L (0.7-2.0) 02/13/24 14:23
Total Bilirubin 0.8 mg/dl (0.2-1.3) 02/13/24 14:23
AST 18 U/L (14-36) 02/13/24 14:23
ALT 15 U/L (0-35) 02/13/24 14:23
Alkaline Phosphatase 137 U/L (38-126) H 02/13/24 14:23
Most recent labs reviewed.
Micro Results:
02/13/24 14:23 Blood Culture - Preliminary
Blood/Venous No Growth in 48 hours- Final report to follow
--- NOTE | 2024-02-16 14:53 | W.PN.HOSP.TC ---
Today's Communication/Plan
-
Plan for OR Saturday02/17/[address] Delgado for I&D right hip
Assessment / Plan
Assessment / Plan
HPI: HPI: 68-year-old female with a past medical history of right proximal femur fracture status post right hip gamma nail/03/[address] Delgado, dementia residing at [facility], anemia, ambulatory dysfunction, right BKA in 2020, thrombophilia,
and paroxysmal atrial fibrillation on Eliquis presents with an infection of her right surgical hip wound. Patient was seen by orthopedic surgery in the office. She had wound cultures, growing Klebsiella, Enterococcus, sensitive to Ancef and
vancomycin. Currently her pain is 4 out of 10 in intensity. She denies fever. No chest pain, no shortness of breath, no palpitations. No nausea, no vomiting. No abdominal pain. She does complain of dysuria. No black or bloody stools.
#Right hip surgical wound infection
Outpatient wound cultures grew out Klebsiella and Enterococcus, sensitivities reviewed
Appreciate ID and orthopedic surgery input
Hold Eliquis for surgical I&D on Friday 02/[address] Delgado, ID recommends Unasyn
Tylenol 1 g 3 times daily, oxycodone as needed, bowel regimen
#Chronic ambulatory dysfunction secondary to right BKA
PT/OT
#Dementia, unknown type
Resides at [facility]
#Paroxysmal atrial fibrillation
Hold Eliquis
Continue diltiazem
#Type 2 diabetes
Currently on glargine 17 units 3 times a day, NovoLog 4 units AC 3 times daily
Sliding scale insulin, diabetic diet
#Hyperkalemia
Resolved
#Hyperlipidemia
Continue statin
#Chronic anemia
Monitor hemoglobin
DVT prophylaxis�therapeutic Lovenox while holding Eliquis (hold lovenox saturday)
DNR
Total time spent to see the patient on the floor, examine the patient, review data and lab results, discuss treatment plan with patient, nursing staff around 35 minutes.
Physical Exam
General: No Apparent Distress
HEENT: NormoCephalic, Moist mucous membranes and Atraumatic
Respiratory: Clear
Cardiac: S1/S2 and Irregular Rhythm
GI: Soft, Non Tender, Non Distended and Normal Bowel Sounds
Musculoskeletal: No Clubbing, No Cyanosis and Other (Right BKA noted)
Skin: Other (Right hip surgical wound dressed)
Neuro: Awake and Alert
Psych: Calm
Anticipated Discharge: > 48 hours
Subjective/Interval History
-
Date of Service: February 15, 2024
Patient reports that her right hip pain is tolerable. No chest pain, no shortness of breath. No fever, no vomiting.
Objective Data
-
Labs:
Laboratory Results
02/15/24
07:17
WBC 4.9
Hgb 9.8 L
Hct 31.0 L
Plt Count 357
Sodium 135
Potassium 4.7
Chloride 103
Carbon Dioxide 28
BUN 7
Creatinine 0.4 L
Glucose 177 H
Calcium 8.6
Vital Signs:
Vital Signs
Temp Pulse Resp BP Pulse Ox
98.6 F 95 16 110/64 98
02/15/24 07:00 02/15/24 07:00 02/15/24 07:00 02/15/24 07:00 02/15/24 08:15
I&O
02/14/24 02/15/24 02/16/24
06:59 06:59 06:59
Intake Total 540 / 540
Balance 540 / 540
[2024-02-16 15:38] VITALS: BP 113/60
[2024-02-16 16:07] LABS: Glucose - Point of Care 203 mg/dl (70-99)
[2024-02-16] MEDS: NOVOLOG FLEXPEN-MODERATE RESISTANCE 3 UNITS SC (16:09)
[2024-02-16] MEDS: LANTUS 0.170000000000000012 UNITS SC (17:47)
[2024-02-16] MEDS: DESENEX/MITRAZOL/ZEASORB 1 APPLIC TOPICAL (20:45)
[2024-02-16 21:21] LABS: Glucose - Point of Care 165 mg/dl (70-99)
[2024-02-16] MEDS: ROXICODONE 5 MG PO (21:28)
[2024-02-16 23:25] VITALS: BP 123/62
[2024-02-17] VITALS (16 sets, daily range): BP systolic 78–138; BP diastolic 40–69
[2024-02-17] MEDS: UNASYN IV ×4 (03:30→21:00)
--- NOTE | 2024-02-17 05:49 | W.PN.HOSP.TC ---
Today's Communication/Plan
-
NPO
Hold anticoagulation for Orthopedic OR I&D today
cont antibiotics as per ID
Glycemic control
Pain control
Assessment / Plan
Assessment / Plan
HPI: HPI: 68-year-old female with a past medical history of right proximal femur fracture status post right hip gamma nail/03/[address] Delgado, dementia residing at [facility], anemia, ambulatory dysfunction, right BKA in 2020, thrombophilia,
and paroxysmal atrial fibrillation on Eliquis presents with an infection of her right surgical hip wound. Patient was seen by orthopedic surgery in the office. She had wound cultures, growing Klebsiella, Enterococcus, sensitive to Ancef and
vancomycin. Currently her pain is 4 out of 10 in intensity. She denies fever. No chest pain, no shortness of breath, no palpitations. No nausea, no vomiting. No abdominal pain. She does complain of dysuria. No black or bloody stools.
#Right hip surgical wound infection
Outpatient wound cultures grew out Klebsiella and Enterococcus, sensitivities reviewed
Appreciate ID and orthopedic surgery input
Eliquis held for surgical I&D on Friday 02/[address] Delgado
cont Unasyn as per ID
Tylenol 1 g 3 times daily, oxycodone as needed, bowel regimen
#Chronic ambulatory dysfunction secondary to right BKA
PT/OT
#Dementia, unknown type
Resides at [facility]
#Paroxysmal atrial fibrillation
Hold Eliquis, resume when safe as per orthopedic
Continue diltiazem
#Type 2 diabetes
Currently on glargine 17 units 3 times a day, NovoLog 4 units AC 3 times daily
Sliding scale insulin, diabetic diet
#Hyperkalemia
Resolved
#Hyperlipidemia
Continue statin
#Chronic anemia
Monitor hemoglobin
DVT prophylaxis�holding anticoagulation for OR today, resume chemical prophylaxis when safe as per orthopedic
DNR
Total time spent to see the patient on the floor, examine the patient, review data and lab results, discuss treatment plan with patient, nursing staff around 50 minutes.
Physical Exam
General: No Apparent Distress
HEENT: NormoCephalic, Moist mucous membranes and Atraumatic
Respiratory: Clear
Cardiac: S1/S2 Irregularly Irregular
GI: Soft, Non Tender, Non Distended and Normal Bowel Sounds
Musculoskeletal: Right BKA noted
Skin: Right hip surgical wound dressed
Neuro: AOx2 disoriented to Time
Psych: Calm
Anticipated Discharge: 24 - 48 hours
Subjective/Interval History
-
Date of Service: February 17, 2024
No acute distress. Continues to report right hip/lower ext pain
Objective Data
-
Labs:
Laboratory Results
02/17/24
06:00
WBC Pending
Hgb Pending
Hct Pending
Plt Count Pending
PT Pending
INR Pending
Sodium Pending
Potassium Pending
Chloride Pending
Carbon Dioxide Pending
BUN Pending
Creatinine Pending
Glucose Pending
Calcium Pending
Vital Signs:
Vital Signs
Temp Pulse Resp BP Pulse Ox
98.1 F 84 16 123/62 97
02/16/24 23:25 02/16/24 23:25 02/16/24 23:25 02/16/24 23:25 02/16/24 23:25
I&O
02/15/24 02/16/24 02/17/24
06:59 06:59 06:59
Intake Total 540 / 540 1020 / 1020 1620 / 1620
Balance 540 / 540 1020 / 1020 1620 / 1620
[2024-02-17 06:01] LABS: Glucose - Point of Care 153 mg/dl (70-99)
[2024-02-17] MEDS: NOVOLOG FLEXPEN SC ×2 (06:18→15:32)
[2024-02-17] MEDS: NOVOLOG FLEXPEN-MODERATE RESISTANCE 1 UNITS SC (06:20)
[2024-02-17 08:03] LABS: Hematocrit 31.8 % (37.0-47.0); Hemoglobin 9.8 g/dL (12.0-16.0); Mean Corp Hgb Conc. 30.8 g/dL (33.0-37.0); Mean Corpuscular Hgb 27.8 pg (27.0-31.0); Mean Corpuscular Volume 90.3 fL (81.0-99.0); Mean Platelet Volume 9.6 fL (7.4-10.4); Platelet Count 300 10^3/uL (130-400); Red Blood Cell Count 3.52 10^6/uL (4.20-5.40); Red Cell Dist. Width 14.4 % (11.5-14.5); White Blood Cell Count 4.9 10^3/uL (4.8-10.8)
[2024-02-17 08:13] LABS: INR 1.21; PT 15.1 Sec (11.4-14.6)
[2024-02-17 08:33] LABS: Erythrocyte Sed Rate 52 mm/hour (0-20)
--- NOTE | 2024-02-17 08:44 | W.PN.UPDATE ---
Update Note
Progress Note Update
Patient for OR a bit later today for RIGHT hip I&D via Dr. Delgado. S/p RIGHT CMN on February 11. has been admitted with wound concerns- superficial growth of klebsiella and E. faecalis. On IV ABX, including Unasyn. Afeb. WBC 4.3. CRP 13.1. Hgb 9.9
this AM. Patient resting and did not respond to verbal stim therefore I DND. Patient to remain NPO. Consented. Appreciate the efforts of all involved in her care. Will follow
[2024-02-17 08:55] LABS: Blood Urea Nitrogen 7 mg/dl (7-17); Calcium 8.6 mg/dl (8.4-10.2); Carbon Dioxide 29 mmol/L (22-30); Chloride 105 mmol/L (98-107); Estimated Creatinine Clearance 91 ml/min; Glucose 148 mg/dl (70-99); Potassium 4.3 mmol/L (3.5-5.1); Sodium 136 mmol/L (135-145); eGFR > 60.00
[2024-02-17] MEDS: MIRALAX PO (09:09)
[2024-02-17] MEDS: DESENEX/MITRAZOL/ZEASORB 1 APPLIC TOPICAL ×2 (09:10→20:56)
[2024-02-17] MEDS: DUPHALAC/CHRONULAC 20 GRAMS PO ×2 (10:00→20:55)
[2024-02-17] MEDS: CARDIZEM CD 180 MG PO (10:00)
[2024-02-17] MEDS: DILAUDID 0.25 MG IV (11:03)
--- NOTE | 2024-02-17 12:22 | CM ---
CM reviewed chart, patient off floor, scheduled for OR today. CM will continue to follow for discharge planning needs.
Plan; return to [facility] when stable.
[facility]
Report: [phone]
[2024-02-17 13:32] LABS: Glucose - Point of Care 152 mg/dl (70-99)
--- NOTE | 2024-02-17 14:13 | W.PN.ID1 ---
Date of Service
Date of Service: February 17, 2024
Today's Communication
Follow OR cx.
Continue Unasyn.
Assessment / Plan
# Post-op right hip SSTI
- recent right prox femur fracture gamma nailing 01/24/2024.
- 02/10/2024 ED superficial swab of drainage - Klebsiella, E. faecalis which may not reflect deeper organisms
- 02/17/2024 s/p I+D. Per Ortho, no purulence, + small amount of sero-sanguinous fluid.
Appreciate ortho OR cx pending
- Continue Unasyn (d4)
#Additional Past Medical History:
Diabetes mellitus type 2
Dyslipidemia
CAD status post stents
Ischemic cardiomyopathy
Atrial fibrillation
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
PAD status post right BKA
DVT status post IVC filter placement
Depression
Thrombophilia
Cholecystectomy
Bilateral rotator cuff repair
Laminectomy
Left hip fracture status post gamma nailing in 2020
Right proximal femur fracture status post gamma nail January 24, 2024
Chief Complaint
-: Cellulitis
Subjective / Review of Systems
Surgery went well this morning.
Vital Signs / Physical Exam
Vital Signs
Vital Signs
Temp Pulse Resp BP Pulse Ox
98.1 F 61 10 98/49 93
02/17/24 07:24 02/17/24 14:00 02/17/24 14:00 02/17/24 13:54 02/17/24 14:00
Physical Exam
Constitutional: No Acute Distress and Comfortable
Pulmonary: Clear
Gastrointestinal: Soft, Non Tender and Non Distended
Objective Data
Lab Data
Lab Results
02/17/24 07:34
02/17/24 07:34
ESR 52 mm/hour (0-20) H 02/17/24 07:34
PT 15.1 Sec (11.4-14.6) H 02/17/24 07:34
INR 1.21 02/17/24 07:34
Estimated Creat Clear 91 ml/min 02/17/24 07:34
Lactic Acid 1.5 mmol/L (0.7-2.0) 02/13/24 14:23
Total Bilirubin 0.8 mg/dl (0.2-1.3) 02/13/24 14:23
AST 18 U/L (14-36) 02/13/24 14:23
ALT 15 U/L (0-35) 02/13/24 14:23
Alkaline Phosphatase 137 U/L (38-126) H 02/13/24 14:23
C-Reactive Protein 13.10 mg/L (0.0-10.00) H 02/17/24 07:34
Most recent labs reviewed.
Micro Results:
02/17/24 12:44 Anaerobic Culture - Pending
Hip - Right
02/17/24 12:44 Wound Culture - Pending
Hip - Right Gram Stain - Pending
02/13/24 14:23 Blood Culture - Preliminary
Blood/Venous No Growth in 72 hours- Final report to follow
[2024-02-17] MEDS: NOVOLOG FLEXPEN-MODERATE RESISTANCE SC (15:33)
[2024-02-17] MEDS: NSS 1000 IV (15:34)
[2024-02-17] MEDS: ROXICODONE 10 MG PO ×2 (15:47→20:54)
--- NOTE | 2024-02-17 15:54 | PTCARENOTE ---
Report called in to [address] RN. All belongings packed and will be brought to [id number]
[2024-02-17 17:03] LABS: Glucose - Point of Care 219 mg/dl (70-99)
[2024-02-17] MEDS: NOVOLOG FLEXPEN-MODERATE RESISTANCE 3 UNITS SC (17:25)
[2024-02-17] MEDS: NOVOLOG FLEXPEN 4 UNITS SC (17:26)
[2024-02-17] MEDS: LANTUS 0.170000000000000012 UNITS SC (19:49)
[2024-02-17] MEDS: COLACE 100 MG PO (20:54)
[2024-02-17] MEDS: SENOKOT 17.1999999999999993 MG PO (20:55)
[2024-02-17 22:21] LABS: Glucose - Point of Care 328 mg/dl (70-99)
[2024-02-18] MEDS: ROXICODONE 10 MG PO ×2 (02:33→15:28)
--- NOTE | 2024-02-18 04:19 | PTCARENOTE ---
Pt with ordered MOM enema for today that was not fulfilled, pt refusing enema at this time. Pt states she does not want to be awake all night having bowel movements, requesting enema be delayed until the AM.
[2024-02-18] MEDS: UNASYN IV ×4 (04:52→22:38)
[2024-02-18] MEDS: ROXICODONE 5 MG PO ×2 (04:57→20:56)
[2024-02-18] MEDS: NSS 1000 IV (05:49)
--- NOTE | 2024-02-18 07:01 | W.PN.ORTHO ---
Today's Communication / Plan
-
68yo female POD#1 right hip I&D with Dr. Delgado
-OR cultures pending this morning. continue to follow
-Appreciate ID and IM recommendations. Patient currently on Unasyn
-Ok to resume Eliquis
-PT/OT
-Maintain Aquacel dressing to right hip
-Will continue to follow along
Assessment
.
Distal Motor Intact: Yes
Dressing:
Clean, dry and intact.
Plan
.
Surgery / Date: Right hip I&D 02/17/24 Dr. Delgado
DVT Prophylaxis: Other (Eliquis)
Activity:
Out of bed.
PT/OT
Subjective
.
.:
Patient resting comfortably in bed this morning. Reports soreness in her right hip.
Vital Signs and Labs
.
Vital Signs and Labs:
Lab Results
02/17/24 07:34
Temp Pulse Resp BP Pulse Ox
98.1 F 73 19 105/54 95
02/17/24 23:32 02/17/24 23:32 02/17/24 23:32 02/17/24 23:32 02/18/24 03:57
PT 15.1 Sec (11.4-14.6) H 02/17/24 07:34
INR 1.21 02/17/24 07:34
Physical Exam
-
RLE:
Aquacel to right hip, clean dry and intact.
Mild expected edema to right hip
General tenderness to palpation of lateral hip
Sensation intact to light touch
[2024-02-18 07:23] LABS: Glucose - Point of Care 285 mg/dl (70-99)
[2024-02-18 07:28] VITALS: BP 121/60
--- NOTE | 2024-02-18 07:29 | W.PN.HOSP.TC ---
Today's Communication/Plan
-
Anticoagulation wound care as per Orthopedic
cont antibiotics as per ID
Glycemic control, carb controlled diet
Pain control
PT/OT
Assessment / Plan
Assessment / Plan
HPI: HPI: 68-year-old female with a past medical history of right proximal femur fracture status post right hip gamma nail/03/[address] Delgado, dementia residing at [facility], anemia, ambulatory dysfunction, right BKA in 2020, thrombophilia,
and paroxysmal atrial fibrillation on Eliquis presents with an infection of her right surgical hip wound. Patient was seen by orthopedic surgery in the office. She had wound cultures, growing Klebsiella, Enterococcus, sensitive to Ancef and
vancomycin. Currently her pain is 4 out of 10 in intensity. She denies fever. No chest pain, no shortness of breath, no palpitations. No nausea, no vomiting. No abdominal pain. She does complain of dysuria. No black or bloody stools.
#Right hip surgical wound infection
Outpatient wound cultures grew out Klebsiella and Enterococcus, sensitivities reviewed
Appreciate ID and orthopedic surgery input
Eliquis held for surgical I&D on Friday 02/[address] Delgado, resumed at reduced dose as per orthopedic
cont Unasyn as per ID
Tylenol 1 g 3 times daily, oxycodone as needed, bowel regimen
#Chronic ambulatory dysfunction secondary to right BKA
PT/OT
#Dementia, unknown type
Resides at [facility]
#Permanentl atrial fibrillation
Eliquis resumed at reduced dose as per orthopedic
Continue diltiazem
#Type 2 diabetes
Currently on glargine 17 units 3 times a day, NovoLog 4 units AC 3 times daily
Sliding scale insulin, diabetic diet
carb controlled diet
#Hyperkalemia
Resolved
#Hyperlipidemia
Continue statin
#Chronic anemia
Monitor hemoglobin
#Stage 2 sacral wound POA
Local Wound Care
DVT prophylaxis�Eliquis as per Orthopedic
DNR
discussed with patient and patient's listed contact [facility] [id number] Francine
Total time spent to see the patient on the floor, examine the patient, review data and lab results, discuss treatment plan with patient, nursing staff around 50 minutes.
Physical Exam
General: No Apparent Distress
HEENT: NormoCephalic, Moist mucous membranes and Atraumatic
Respiratory: Clear
Cardiac: S1/S2 Irregularly Irregular
GI: Soft, Non Tender, Non Distended and Normal Bowel Sounds
Musculoskeletal: Right BKA noted
Skin: Right hip surgical wound dressed
Neuro: AOx2 disoriented to Time
Psych: Calm
Anticipated Discharge: 24 - 48 hours
Subjective/Interval History
-
Date of Service: February 18, 2024
Reports overall feeling well. Pain well controlled with current regimen. Denies new acute issues at this time.
Objective Data
-
Labs:
Laboratory Results
02/18/24
06:00
Hgb Pending
Hct Pending
Vital Signs:
Vital Signs
Temp Pulse Resp BP Pulse Ox
98.1 F 86 16 121/60 95
02/18/24 07:28 02/18/24 07:28 02/18/24 07:28 02/18/24 07:28 02/18/24 07:28
I&O
02/17/24 02/18/24 02/19/24
06:59 06:59 06:59
Intake Total 1620 / 1620 650 / 650
Balance 1620 / 1620 650 / 650
[2024-02-18] MEDS: CARDIZEM CD 180 MG PO (08:26)
[2024-02-18] MEDS: COLACE 100 MG PO ×2 (08:26→20:56)
[2024-02-18] MEDS: SENOKOT 17.1999999999999993 MG PO ×2 (08:26→20:56)
[2024-02-18] MEDS: MIRALAX 17 GRAMS PO (08:26)
[2024-02-18] MEDS: DUPHALAC/CHRONULAC 20 GRAMS PO ×2 (08:26→20:57)
[2024-02-18] MEDS: NOVOLOG FLEXPEN-MODERATE RESISTANCE 5 UNITS SC (08:26)
[2024-02-18] MEDS: NOVOLOG FLEXPEN 4 UNITS SC ×2 (08:27→17:16)
[2024-02-18] MEDS: DESENEX/MITRAZOL/ZEASORB 1 APPLIC TOPICAL ×2 (08:27→20:57)
--- NOTE | 2024-02-18 09:21 | W.PN.ID1 ---
Date of Service
Date of Service: February 18, 2024
Today's Communication
Continue Unasyn.
Assessment / Plan
# Post-op right hip SSTI
- recent right prox femur fracture gamma nailing 01/24/2024.
- 02/10/2024 ED superficial swab of drainage - Klebsiella, E. faecalis
- 02/17/2024 s/p I+D. Per Ortho, no purulence, + small amount of sero-sanguinous fluid.
Appreciate ortho OR cx pending
- Continue Unasyn (d5)
Since, infection is limited to wound without hardware involvement, will eventually transition to a course po abx when OR culture data available.
#Additional Past Medical History:
Diabetes mellitus type 2
Dyslipidemia
CAD status post stents
Ischemic cardiomyopathy
Atrial fibrillation
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
PAD status post right BKA
DVT status post IVC filter placement
Depression
Thrombophilia
Cholecystectomy
Bilateral rotator cuff repair
Laminectomy
Left hip fracture status post gamma nailing in 2020
Right proximal femur fracture status post gamma nail January 24, 2024
Chief Complaint
-: Cellulitis
Subjective / Review of Systems
Feels well.
Vital Signs / Physical Exam
Vital Signs
Vital Signs
Temp Pulse Resp BP Pulse Ox
98.1 F 86 16 121/60 95
02/18/24 07:28 02/18/24 07:28 02/18/24 07:28 02/18/24 08:26 02/18/24 07:28
Physical Exam
Constitutional: No Acute Distress and Comfortable
Gastrointestinal: Soft, Non Tender and Non Distended
Wound: Other (right hip dressing in place)
Neurological: AO x 3
Objective Data
Lab Data
Lab Results
02/17/24 07:34
ESR 52 mm/hour (0-20) H 02/17/24 07:34
PT 15.1 Sec (11.4-14.6) H 02/17/24 07:34
INR 1.21 02/17/24 07:34
Estimated Creat Clear 91 ml/min 02/17/24 07:34
Lactic Acid 1.5 mmol/L (0.7-2.0) 02/13/24 14:23
Total Bilirubin 0.8 mg/dl (0.2-1.3) 02/13/24 14:23
AST 18 U/L (14-36) 02/13/24 14:23
ALT 15 U/L (0-35) 02/13/24 14:23
Alkaline Phosphatase 137 U/L (38-126) H 02/13/24 14:23
C-Reactive Protein 13.10 mg/L (0.0-10.00) H 02/17/24 07:34
Most recent labs reviewed.
Micro Results:
02/17/24 12:44 Wound Culture - Pending
Hip - Right Gram Stain - Preliminary
02/13/24 14:23 Blood Culture - Preliminary
Blood/Venous No Growth in 4 days- Final report to follow
02/17/24 12:44 Anaerobic Culture - Pending
Hip - Right
--- NOTE | 2024-02-18 09:41 | PTCARENOTE ---
pt R AC IV site leaking this morning while IV fluids were being administered. new line in L wrist. pt receiving IV abx as well. pt took all pills whole with water and ate all of her breakfast. air cushion placed under R BKA, foot pump placed on L
foot at this time. Aquacell intact on hip.
--- NOTE | 2024-02-18 10:06 | PN.CDI ---
CDI
- -
CDI:
Physician Documentation Request
Admit Date: 02/13/24 16:41
Dear Doctor Yan,
Please review the following and provide your response in the progress notes.
02/12 Pt admitted with right hip surgical wound infection.
Clinical Indicators:
02/12 RN's assessment noted Stage 2 sacral wound POA
02/13 commercial crabber's note: ' Patient admitted with: Stage 2 sacral PI.'
Physician documentation of the type and location of wounds is required for compliant documentation. Based on the above clinical findings and your assessment, please provide the following in your progress note:
1. Location of the ulcer/wound, including laterality.
Sacral
Other
2. Type (etiology) of ulcer/wound:
- Pressure (decubitus) ulcer
- Non-staging wound
- Other
Use of terms such as suspected, likely, concern for, or probable (associated with a specific diagnosis that is being evaluated, monitored, or treated as if it exists) are acceptable and can be coded in the inpatient setting, when documented at the
time of discharge.
Thank you,
Michelle Cordova RN, BSN
CDI Specialist
Available via [employer]
Please use your independent medical judgment in providing your response.
*Source: National Pressure Ulcer Advisory Panel (NPUAP)
--- NOTE | 2024-02-18 10:24 | PN.CDI ---
CDI
- -
CDI:
Physician Documentation Request
Admit Date: 02/13/24 16:41
Dear Doctor Yan,
Please review the following and provide your response in the progress notes.
Clinical Indicators:
From previous visit- 01/25/24 Cardiology Note: 'permanent atrial fibrillation (on Eliquis)'
This Admission - 02/12 H&P note: 'paroxysmal atrial fibrillation on Eliquis.'
If possible, please provide further specificity regarding atrial fibrillation, such as:
Paroxysmal atrial fibrillation - terminates spontaneously or with intervention within 7 days of onset
Permanent atrial fibrillation - when a decision has been made to accept the presence of AF and there is no further attempt to restore or maintain sinus rhythm
Other - please specify
Use of terms such as suspected, likely, concern for, or probable (associated with a specific diagnosis that is being evaluated, monitored, or treated as if it exists) are acceptable and can be coded in the inpatient setting, when documented at the
time of discharge.
Thank you,
Michelle Cordova RN, BSN
CDI Specialist
Available via [place] [employer]
Please use your independent medical judgment in providing your response.
[2024-02-18 11:28] LABS: Hematocrit 31.7 % (37.0-47.0)
[2024-02-18 13:13] LABS: Glucose - Point of Care 308 mg/dl (70-99)
[2024-02-18] MEDS: NOVOLOG FLEXPEN-MODERATE RESISTANCE 7 UNITS SC (13:14)
[2024-02-18] MEDS: NOVOLOG FLEXPEN SC (13:14)
[2024-02-18 14:44] VITALS: BP 123/65; PULSE 79; O2SAT 96
[2024-02-18 15:27] VITALS: BP 102/56
[2024-02-18 16:44] LABS: Glucose - Point of Care 242 mg/dl (70-99)
[2024-02-18] MEDS: NSS IV (16:54)
[2024-02-18] MEDS: NOVOLOG FLEXPEN-MODERATE RESISTANCE 3 UNITS SC (17:17)
[2024-02-18] MEDS: LANTUS 0.170000000000000012 UNITS SC (18:38)
[2024-02-18] MEDS: ELIQUIS 2.5 MG PO (20:56)
[2024-02-18 21:29] LABS: Glucose - Point of Care 381 mg/dl (70-99)
[2024-02-18] MEDS: NOVOLOG FLEXPEN 6 UNITS SC (21:51)
[2024-02-18 23:06] VITALS: BP 119/65
[2024-02-19 02:55] VITALS: BMI 27.0
[2024-02-19 03:23] LABS: Glucose - Point of Care 245 mg/dl (70-99)
[2024-02-19] MEDS: ROXICODONE 10 MG PO ×2 (03:26→20:38)
[2024-02-19] MEDS: UNASYN IV ×4 (03:26→22:29)
--- NOTE | 2024-02-19 07:01 | W.PN.HOSP.TC ---
Today's Communication/Plan
-
Glycemic control
wound care
cont abx as per ID
PT/OT
Assessment / Plan
Assessment / Plan
HPI: HPI: 68-year-old female with a past medical history of right proximal femur fracture status post right hip gamma nail/03/[address] Delgado, dementia residing at [facility], anemia, ambulatory dysfunction, right BKA in 2020, thrombophilia,
and paroxysmal atrial fibrillation on Eliquis presents with an infection of her right surgical hip wound. Patient was seen by orthopedic surgery in the office. She had wound cultures, growing Klebsiella, Enterococcus, sensitive to Ancef and
vancomycin. Currently her pain is 4 out of 10 in intensity. She denies fever. No chest pain, no shortness of breath, no palpitations. No nausea, no vomiting. No abdominal pain. She does complain of dysuria. No black or bloody stools.
#Right hip surgical wound infection
Outpatient wound cultures grew out Klebsiella and Enterococcus, sensitivities reviewed
Appreciate ID and orthopedic surgery input
Eliquis held for surgical I&D on Friday 02/[address] Delgado, resumed at reduced dose as per orthopedic for 3 days post-op then resume home dose
I&D wound cx's appreciated K pneumonia resistant to Ampicillin, otherwise relatively pansensitive
cont Unasyn as per ID
Tylenol 1 g 3 times daily, oxycodone as needed, bowel regimen
#Chronic ambulatory dysfunction secondary to right BKA
PT/OT appreciated SNF rehab
#Dementia, unknown type
Resides at [facility]
#Permanentl atrial fibrillation
Eliquis resumed at reduced dose as per orthopedic
Continue diltiazem
#Type 2 diabetes
Diabetes CEMENT HANDLER consult appreciated insulin regimen increased to glargine 20U, NovoLog 7 units AC
Sliding scale insulin, diabetic diet
carb controlled diet
#Hyperkalemia
Resolved
#Hyperlipidemia
Continue statin
#Chronic anemia
Monitor hemoglobin
#Stage 2 sacral wound POA
Local Wound Care
DVT prophylaxis�Eliquis as per Orthopedic
DNR
discussed with patient and patient's listed contact [facility] [id number] Francine
Total time spent to see the patient on the floor, examine the patient, review data and lab results, discuss treatment plan with patient, nursing staff around 53 minutes.
Physical Exam
General: No Apparent Distress
HEENT: NormoCephalic, Moist mucous membranes and Atraumatic
Respiratory: Clear
Cardiac: S1/S2 Irregularly Irregular
GI: Soft, Non Tender, Non Distended and Normal Bowel Sounds
Musculoskeletal: Right BKA noted
Skin: Right hip surgical wound dressed
Neuro: AOx2 disoriented to Time
Psych: Calm
Anticipated Discharge: 24 - 48 hours
Subjective/Interval History
-
Date of Service: February 19, 2024
no acute distress. Reports feeling well at this time at rest in bed. Pain controlled with current pain regimen.
Objective Data
-
Labs:
Laboratory Results
02/19/24
06:00
WBC Pending
Hgb Pending
Hct Pending
Plt Count Pending
Sodium Pending
Potassium Pending
Chloride Pending
Carbon Dioxide Pending
BUN Pending
Creatinine Pending
Glucose Pending
Calcium Pending
Vital Signs:
Vital Signs
Temp Pulse Resp BP Pulse Ox
98.0 F 86 20 119/65 95
02/18/24 23:06 02/18/24 23:06 02/18/24 23:06 02/18/24 23:06 02/18/24 23:06
I&O
02/18/24 02/19/24 02/20/24
06:59 06:59 06:59
Intake Total 650 / 650 2660 / 2660
Output Total 240 / 240
Balance 650 / 650 2420 / 2420
[2024-02-19 07:31] LABS: Glucose - Point of Care 236 mg/dl (70-99)
--- NOTE | 2024-02-19 07:48 | W.PN.UPDATE ---
Update Note
Progress Note Update
Ms. Aguiar is POD2 following her right hip I&D performed by Dr. Delgado. She is resting comfortably in bed this morning, and denies any pain in her hip at present. She has no questions or concerns at this time.
Directed exam of the right lower extremity reveals Aquacel dressing clean, dry and intact. No tenderness to palpation about the hip. Thigh soft and compressible. Sensation intact to light touch.
Hgb pending this AM. Continue to monitor.
Preliminary cultures from OR growing gram negative bacilli.
68yo female POD#2 right hip I&D with Dr. Delgado
--OR cultures with gram negative bacilli. Continue to monitor. Appreciate recommendations per ID. Currently unasyn.
--Ok to resume Eliquis.
--Pain control per primary.
--We appreciate the assistance of PT/OT.
--Maintain Aquacel dressing to right hip.
--Case management consult for discharge planning.
--Orthopedics will continue to follow.
[2024-02-19 08:00] VITALS: BP 118/57
--- NOTE | 2024-02-19 08:07 | PN.DE.MGMTRT ---
Insulin Management
- -
02/19/2024: Diabetes Management Consult
68 year old female with Recent right proximal femur fx s/p right hip gamma nail on 01/24/24.
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 Pt admitted on 02/12 with an infection of her right surgical hip wound. Pt is now
POD#3 s/p right hip I&D.
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 Recent A1C 8.5% on 01/07, Cr 0.5, eGFR>60
Pt awake, alert, sitting in bed, offers no complaints, states staff at [place] were monitoring her blood sugars once a day and administering her insulin.
Her glucose levels and insulin requirements have trended up. FBG 206 this AM. Premeal range 236 to 308, requiring 3-7 units of additional corrective insulin.
Will increase Lantus to 20 units and NovoLog AC from 4 units to 7 units.
Pt resides in [place] and should be able to receive her insulin as prescribed.
Diabetes History
- -
Type of Diabetes: 2 requiring insulin
Pre-Admission Diabetes Regimen
Insulin Pump Settings
IP Diabetes Regimen
02/18/24 02/18/24 02/18/24
13:12 16:43 21:22
POC Glucose 308 H 242 H 381 H
02/19/24 02/19/24
03:16 07:29
POC Glucose 245 H 236 H
Meal type: Dinner
Meal type: Breakfast
Amount consumed: 95%
Amount consumed: 100%
Patient Education
[2024-02-19 08:15] LABS: Hematocrit 29.6 % (37.0-47.0); Hemoglobin 9.4 g/dL (12.0-16.0); Mean Corp Hgb Conc. 31.8 g/dL (33.0-37.0); Mean Corpuscular Hgb 28.4 pg (27.0-31.0); Mean Corpuscular Volume 89.4 fL (81.0-99.0); Mean Platelet Volume 10.1 fL (7.4-10.4); Platelet Count 312 10^3/uL (130-400); Red Blood Cell Count 3.31 10^6/uL (4.20-5.40); Red Cell Dist. Width 14.5 % (11.5-14.5); White Blood Cell Count 8.8 10^3/uL (4.8-10.8)
[2024-02-19] MEDS: ELIQUIS 2.5 MG PO ×2 (08:20→20:39)
[2024-02-19] MEDS: COLACE 100 MG PO (08:20)
[2024-02-19] MEDS: MIRALAX 17 GRAMS PO (08:20)
[2024-02-19] MEDS: DESENEX/MITRAZOL/ZEASORB 1 APPLIC TOPICAL ×2 (08:20→20:38)
[2024-02-19] MEDS: DUPHALAC/CHRONULAC 20 GRAMS PO (08:20)
[2024-02-19] MEDS: CARDIZEM CD 180 MG PO (08:20)
[2024-02-19] MEDS: SENOKOT 17.1999999999999993 MG PO (08:20)
[2024-02-19] MEDS: NOVOLOG FLEXPEN 4 UNITS SC (08:21)
[2024-02-19] MEDS: NOVOLOG FLEXPEN-MODERATE RESISTANCE 3 UNITS SC ×2 (08:21→12:46)
[2024-02-19 08:45] LABS: Blood Urea Nitrogen 11 mg/dl (7-17); Calcium 8.6 mg/dl (8.4-10.2); Carbon Dioxide 25 mmol/L (22-30); Chloride 102 mmol/L (98-107); Estimated Creatinine Clearance 91 ml/min; Glucose 206 mg/dl (70-99); Phosphorus 3.7 mg/dl (2.5-4.5); Potassium 4.8 mmol/L (3.5-5.1); Sodium 134 mmol/L (135-145); eGFR > 60.00
[2024-02-19 10:56] VITALS: BMI 27.0
[2024-02-19 12:23] LABS: Glucose - Point of Care 214 mg/dl (70-99)
[2024-02-19] MEDS: NOVOLOG FLEXPEN 7 UNITS SC ×2 (12:46→17:29)
[2024-02-19] MEDS: ROXICODONE 5 MG PO (12:47)
--- NOTE | 2024-02-19 14:39 | W.PN.ID1 ---
Date of Service
Date of Service: February 19, 2024
Today's Communication
- OR culture few K pneumoniae - still preliminary
follow culture another day
Assessment / Plan
# Post-op right hip SSTI
# DM2 uncontrolled
- recent right prox femur fracture gamma nailing 01/24/2024.
- 02/10/2024 ED superficial swab of drainage - Klebsiella, E. faecalis
- 02/17/2024 s/p I+D. Per Ortho, no purulence, + small amount of sero-sanguinous fluid.
- Appreciate ortho
- OR culture few K pneumoniae - still preliminary - follow another day
- outpatient recommend tightening diabetic control
- Continue Unasyn (d6)
Since, infection is limited to wound without hardware involvement, will eventually transition to a course po abx when OR culture data available.
#Additional Past Medical History:
Dyslipidemia
CAD status post stents
Ischemic cardiomyopathy
Atrial fibrillation
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
PAD status post right BKA
DVT status post IVC filter placement
Depression
Thrombophilia
Cholecystectomy
Bilateral rotator cuff repair
Laminectomy
Left hip fracture status post gamma nailing in 2020
Right proximal femur fracture status post gamma nail January 24, 2024
Chief Complaint
-: Cellulitis
Subjective / Review of Systems
afebrile
bp stable
no leukocytosis
cr stable
a1c 01/07 was 8.5
no complaints
Vital Signs / Physical Exam
Vital Signs
Vital Signs
Temp Pulse Resp BP Pulse Ox
98.1 F 72 17 118/57 94
02/19/24 08:00 02/19/24 08:20 02/19/24 08:00 02/19/24 08:20 02/19/24 08:00
Physical Exam
Constitutional: No Acute Distress
Cardiovascular: Regular Rate and S1/S2; Negative Murmur or Rub
Pulmonary: Clear and Symmetric; Negative Wheezes or Rales
Gastrointestinal: Soft, Non Tender, Non Distended and Normal Bowel Sounds
Skin: Warm and Dry; Negative Rash or Jaundice
Objective Data
Lab Data
Lab Results
02/19/24 07:09
02/19/24 07:09
ESR 52 mm/hour (0-20) H 02/17/24 07:34
PT 15.1 Sec (11.4-14.6) H 02/17/24 07:34
INR 1.21 02/17/24 07:34
Estimated Creat Clear 91 ml/min 02/19/24 07:09
Lactic Acid 1.5 mmol/L (0.7-2.0) 02/13/24 14:23
Total Bilirubin 0.8 mg/dl (0.2-1.3) 02/13/24 14:23
AST 18 U/L (14-36) 02/13/24 14:23
ALT 15 U/L (0-35) 02/13/24 14:23
Alkaline Phosphatase 137 U/L (38-126) H 02/13/24 14:23
C-Reactive Protein 13.10 mg/L (0.0-10.00) H 02/17/24 07:34
Most recent labs reviewed.
Micro Results:
02/17/24 12:44 Wound Culture - Preliminary
Hip - Right Klebsiella pneumoniae
Gram Stain - Preliminary
02/13/24 14:23 Blood Culture - Final
Blood/Venous No Growth - Final Report
02/17/24 12:44 Anaerobic Culture - Preliminary
Hip - Right Culture pending. Anaerobic cultures are examined after 3
days incubation. Additional information to follow.
--- NOTE | 2024-02-19 14:53 | CM ---
Discharge Plan of Care: Return to [facility] for resumption of LTC.
[2024-02-19 15:05] VITALS: BP 100/66; BP 111/61; BP 116/66; PULSE 77; O2SAT 95
[2024-02-19 15:35] VITALS: BP 111/61; BP 116/66
[2024-02-19 16:00] VITALS: BP 95/58
[2024-02-19 17:21] LABS: Glucose - Point of Care 146 mg/dl (70-99)
[2024-02-19] MEDS: NOVOLOG FLEXPEN-MODERATE RESISTANCE SC (17:30)
[2024-02-19] MEDS: LANTUS 0.200000000000000011 UNITS SC (18:32)
[2024-02-19] MEDS: COLACE PO (20:32)
[2024-02-19] MEDS: DUPHALAC/CHRONULAC PO (20:33)
[2024-02-19] MEDS: SENOKOT PO (20:33)
[2024-02-19 21:29] LABS: Glucose - Point of Care 83 mg/dl (70-99)
[2024-02-19 23:17] VITALS: BP 114/58
[2024-02-20 03:09] LABS: Glucose - Point of Care 80 mg/dl (70-99)
[2024-02-20] MEDS: ROXICODONE 10 MG PO ×2 (03:12→13:19)
[2024-02-20] MEDS: UNASYN IV ×4 (04:25→22:00)
--- NOTE | 2024-02-20 06:49 | W.PN.HOSP.TC ---
Today's Communication/Plan
-
Glycemic control
wound care
cont abx as per ID
PT/OT
Assessment / Plan
Assessment / Plan
HPI: HPI: 68-year-old female with a past medical history of right proximal femur fracture status post right hip gamma nail/03/[address] Delgado, dementia residing at [facility], anemia, ambulatory dysfunction, right BKA in 2020, thrombophilia,
and paroxysmal atrial fibrillation on Eliquis presents with an infection of her right surgical hip wound. Patient was seen by orthopedic surgery in the office. She had wound cultures, growing Klebsiella, Enterococcus, sensitive to Ancef and
vancomycin. Currently her pain is 4 out of 10 in intensity. She denies fever. No chest pain, no shortness of breath, no palpitations. No nausea, no vomiting. No abdominal pain. She does complain of dysuria. No black or bloody stools.
#Right hip surgical wound infection
Outpatient wound cultures grew out Klebsiella and Enterococcus, sensitivities reviewed
Appreciate ID and orthopedic surgery input
Eliquis held for surgical I&D on Friday 02/[address] Delgado, resumed at reduced dose as per orthopedic for 3 days post-op then resume home dose
I&D wound cx's appreciated K pneumonia resistant to Ampicillin, otherwise relatively pansensitive
cont Unasyn as per ID
Tylenol 1 g 3 times daily, oxycodone as needed, bowel regimen
#Chronic ambulatory dysfunction secondary to right BKA
PT/OT appreciated SNF rehab
#Dementia, unknown type
Resides at [facility]
#Permanentl atrial fibrillation
Eliquis resumed at reduced dose as per orthopedic
Continue diltiazem
#Type 2 diabetes
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
Sliding scale insulin, diabetic diet
carb controlled diet
#Hyperkalemia
Resolved
#Hyperlipidemia
Continue statin
#Chronic anemia
Monitor hemoglobin
#Stage 2 sacral wound POA
Local Wound Care
DVT prophylaxis�Eliquis as per Orthopedic
DNR
Total time spent to see the patient on the floor, examine the patient, review data and lab results, discuss treatment plan with patient, nursing staff around 52 minutes.
Physical Exam
General: No Apparent Distress
HEENT: NormoCephalic, Moist mucous membranes and Atraumatic
Respiratory: Clear
Cardiac: S1/S2 Irregularly Irregular
GI: Soft, Non Tender, Non Distended and Normal Bowel Sounds
Musculoskeletal: Right BKA noted
Skin: Right hip surgical wound dressed
Neuro: AOx2 disoriented to Time
Psych: Calm
Anticipated Discharge: 24 - 48 hours
Subjective/Interval History
-
Date of Service: February 20, 2024
No acute distress appears comfortable at this time. Sugar control improved
Objective Data
-
Labs:
Laboratory Results
02/20/24
06:04
WBC Pending
Hgb Pending
Hct Pending
Plt Count Pending
Sodium Pending
Potassium Pending
Chloride Pending
Carbon Dioxide Pending
BUN Pending
Creatinine Pending
Glucose Pending
Calcium Pending
Vital Signs:
Vital Signs
Temp Pulse Resp BP Pulse Ox
98.4 F 80 20 114/58 92
02/19/24 23:17 02/19/24 23:17 02/19/24 23:17 02/19/24 23:17 02/19/24 23:17
I&O
02/18/24 02/19/24 02/20/24
06:59 06:59 06:59
Intake Total 650 / 650 2660 / 2660 340 / 340
Output Total 240 / 240
Balance 650 / 650 2420 / 2420 340 / 340
[2024-02-20 06:52] LABS: Hematocrit 28.2 % (37.0-47.0); Hemoglobin 8.9 g/dL (12.0-16.0); Mean Corp Hgb Conc. 31.6 g/dL (33.0-37.0); Mean Corpuscular Hgb 28.7 pg (27.0-31.0); Platelet Count 294 10^3/uL (130-400); Red Cell Dist. Width 14.8 % (11.5-14.5); White Blood Cell Count 9.5 10^3/uL (4.8-10.8)
--- NOTE | 2024-02-20 06:56 | W.PN.ORTHO ---
Today's Communication / Plan
-
PT/OT
Weightbearing as tolerated
Antibiotics per infectious disease recommendations, currently on Unasyn
Eliquis half dose for first 3 days postop then return to usual dose
Skin clips to be removed 2 weeks postop
Assessment
.
Distal Motor Intact: Yes
Dressing:
Dressing removed today. Small amount of blood under dressing. Incision is clean, dry and intact. No active drainage. No warmth or erythema around incision site. Incision was cleaned with alcohol and Betadine then new Aquacel applied.
Plan
.
Surgery / Date: Right hip I&D 02/17/24 Dr. Delgado
DVT Prophylaxis: Other
Activity:
Out of bed.
PT/OT
Discharge Plan: SNF
Subjective
.
.:
Patient resting comfortably.
Vital Signs and Labs
.
Vital Signs and Labs:
Lab Results
02/20/24 06:04
Temp Pulse Resp BP Pulse Ox
98.4 F 80 20 114/58 92
02/19/24 23:17 02/19/24 23:17 02/19/24 23:17 02/19/24 23:17 02/19/24 23:17
PT 15.1 Sec (11.4-14.6) H 02/17/24 07:34
INR 1.21 02/17/24 07:34
preliminary wound culture from surgery revealed Klebsiella pneumonia
[2024-02-20 07:08] LABS: Glucose - Point of Care 86 mg/dl (70-99)
[2024-02-20 07:13] LABS: Blood Urea Nitrogen 8 mg/dl (7-17); Carbon Dioxide 28 mmol/L (22-30); Chloride 104 mmol/L (98-107); Estimated Creatinine Clearance 91 ml/min; Glucose 75 mg/dl (70-99); Magnesium 1.9 mg/dl (1.6-2.3); Potassium 3.9 mmol/L (3.5-5.1); Sodium 136 mmol/L (135-145); eGFR > 60.00
[2024-02-20 07:45] VITALS: BP 131/69
--- NOTE | 2024-02-20 07:45 | PN.DE.MGMTRT ---
Insulin Management
- -
02/20/2024: Diabetes Management Consult Follow up
Pt admitted on 02/12 with infection of right surgical hip wound. 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
POD#4 s/p right hip I&D.
Prior to admission was taking Lantus 15 units @ HS. Recent A1C 8.5% on 01/07, Cr 0.5, eGFR>60
Pt awake, alert, sitting in bed, c/o pain, is slightly confused to day, time. Patient states staff at [place] were monitoring her blood sugars once a day and administering her insulin.
Yesterday Lantus increased to 20 units and NovoLog AC from 4 units to 7 units. FBG 75 venous this AM. Will decrease lantus to 18 units @ 18:30
Pre dinner glucose 146 after AC novolog increased, will make no change to AC nvolog 7 units with low corrective.
Pt resides in [place] and should be able to receive her insulin as prescribed.
Discussed diabetes plan of care with patients nurse.
Diabetes History
- -
Type of Diabetes: 2 requiring insulin
Pre-Admission Diabetes Regimen
02/19/24 02/20/24
07:09 06:04
Creatinine 0.4 L 0.4 L
Insulin Pump Settings
IP Diabetes Regimen
02/19/24 02/19/24 02/19/24
07:09 12:21 17:19
Glucose 206 H
POC Glucose 214 H 146 H
02/19/24 02/20/24 02/20/24
21:28 03:07 06:04
Glucose 75
POC Glucose 83 80
02/20/24
07:07
Glucose
POC Glucose 86
Patient Education
[2024-02-20] MEDS: NOVOLOG FLEXPEN SC ×2 (08:33→17:35)
[2024-02-20] MEDS: ELIQUIS 2.5 MG PO ×2 (08:35→21:58)
[2024-02-20] MEDS: DUPHALAC/CHRONULAC PO ×2 (08:41→21:58)
[2024-02-20] MEDS: COLACE PO ×2 (08:41→21:58)
[2024-02-20] MEDS: MIRALAX PO (08:41)
[2024-02-20] MEDS: CARDIZEM CD 180 MG PO (08:42)
[2024-02-20] MEDS: NOVOLOG FLEXPEN-LOW RESISTANCE SC ×3 (08:42→17:35)
[2024-02-20] MEDS: DESENEX/MITRAZOL/ZEASORB 1 APPLIC TOPICAL ×2 (08:44→22:01)
[2024-02-20] MEDS: SENOKOT PO ×2 (08:46→21:58)
[2024-02-20] MEDS: ROXICODONE 5 MG PO (08:48)
[2024-02-20 11:05] VITALS: BP 136/77; BP 145/81; PULSE 93; O2SAT 95
[2024-02-20 11:46] LABS: Glucose - Point of Care 99 mg/dl (70-99)
[2024-02-20] MEDS: NOVOLOG FLEXPEN 7 UNITS SC (13:14)
[2024-02-20 13:25] VITALS: BP 130/68; BP 136/77; BP 145/81; PULSE 116; PULSE 93; O2SAT 95
[2024-02-20 14:11] VITALS: BP 136/77; BP 145/81; PULSE 93; O2SAT 95
[2024-02-20 15:38] VITALS: BP 110/62
--- NOTE | 2024-02-20 16:11 | CM ---
Discharge Plan of Care: [facility] to [facility]. Therapy recommending STR. [facility] willing to accept for STR then transition back to LTC.
[2024-02-20 16:29] LABS: Glucose - Point of Care 118 mg/dl (70-99)
[2024-02-20] MEDS: LANTUS 0.179999999999999993 UNITS SC (19:44)
[2024-02-20] MEDS: NOVOLOG FLEXPEN-MODERATE RESISTANCE SC (19:56)
[2024-02-20 21:55] LABS: Glucose - Point of Care 108 mg/dl (70-99)
[2024-02-20 23:00] VITALS: BP 129/72
[2024-02-21] MEDS: UNASYN IV ×3 (04:13→18:49)
[2024-02-21] MEDS: ROXICODONE 10 MG PO (04:19)
[2024-02-21 06:23] LABS: Hematocrit 33.4 % (37.0-47.0); Hemoglobin 10.6 g/dL (12.0-16.0); Mean Corp Hgb Conc. 31.7 g/dL (33.0-37.0); Mean Corpuscular Hgb 28.3 pg (27.0-31.0); Mean Corpuscular Volume 89.3 fL (81.0-99.0); Mean Platelet Volume 9.8 fL (7.4-10.4); Platelet Count 299 10^3/uL (130-400); Red Blood Cell Count 3.74 10^6/uL (4.20-5.40); Red Cell Dist. Width 14.8 % (11.5-14.5); White Blood Cell Count 7.8 10^3/uL (4.8-10.8)
[2024-02-21 06:55] LABS: Blood Urea Nitrogen 6 mg/dl (7-17); Calcium 8.4 mg/dl (8.4-10.2); Carbon Dioxide 21 mmol/L (22-30); Chloride 102 mmol/L (98-107); Estimated Creatinine Clearance 91 ml/min; Glucose 90 mg/dl (70-99); Phosphorus 4.2 mg/dl (2.5-4.5); Potassium 3.8 mmol/L (3.5-5.1); Sodium 133 mmol/L (135-145); eGFR > 60.00
--- NOTE | 2024-02-21 06:59 | W.PN.HOSP.TC ---
Today's Communication/Plan
-
cont abx as per ID
Resume home dose Eliquis
monitor H&H
wound care
Glycemic control
Assessment / Plan
Assessment / Plan
HPI: HPI: 68-year-old female with a past medical history of right proximal femur fracture status post right hip gamma nail/03/[address] Delgado, dementia residing at [facility], anemia, ambulatory dysfunction, right BKA in 2020, thrombophilia,
and paroxysmal atrial fibrillation on Eliquis presents with an infection of her right surgical hip wound. Patient was seen by orthopedic surgery in the office. She had wound cultures, growing Klebsiella, Enterococcus, sensitive to Ancef and
vancomycin. Currently her pain is 4 out of 10 in intensity. She denies fever. No chest pain, no shortness of breath, no palpitations. No nausea, no vomiting. No abdominal pain. She does complain of dysuria. No black or bloody stools.
#Right hip surgical wound infection
Outpatient wound cultures grew out Klebsiella and Enterococcus, sensitivities reviewed
orthopedic eval appreciated
Eliquis held for surgical I&D on Friday 02/[address] Delgado, completed reduced dose as per orthopedic for 3 days post-op, home 5 mg BID resumed
I&D wound cx's appreciated K pneumonia resistant to Ampicillin, otherwise relatively pansensitive
ID eval appreciated Unasyn narrowed to cefazolin to convert to Keflex on discharge
Tylenol 1 g 3 times daily, oxycodone as needed, bowel regimen
#Chronic ambulatory dysfunction secondary to right BKA
PT/OT appreciated SNF rehab
#Dementia, unknown type
Resides at [facility]
#Permanentl atrial fibrillation
Eliquis resumed at reduced dose for post-op 3 days as per orthopedic, completed home
Continue diltiazem
#Type 2 diabetes
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
Sliding scale insulin, diabetic diet
carb controlled diet
#Hyperkalemia
Resolved
#Hyperlipidemia
Continue statin
#Chronic anemia
Monitor hemoglobin
#Stage 2 sacral wound POA
Local Wound Care
DVT prophylaxis�Eliquis as per Orthopedic
DNR
Total time spent to see the patient on the floor, examine the patient, review data and lab results, discuss treatment plan with patient, nursing staff around 52 minutes.
Physical Exam
General: No Apparent Distress
HEENT: NormoCephalic, Moist mucous membranes and Atraumatic
Respiratory: Clear
Cardiac: S1/S2 Irregularly Irregular
GI: Soft, Non Tender, Non Distended and Normal Bowel Sounds
Musculoskeletal: Right BKA noted
Skin: Right hip surgical wound dressed
Neuro: AOx2 disoriented to Time
Psych: Calm
Anticipated Discharge: Within 24 hours
Subjective/Interval History
-
Date of Service: February 21, 2024
Seen and examined at bedside in no acute distress resting comfortably in bed. Sleeping, easily woken. Denies new acute issues at this time. Reports overall feeling well. Pain controlled on current regimen.
Objective Data
-
Labs:
Laboratory Results
02/21/24
05:22
WBC Pending
Hgb Pending
Hct Pending
Plt Count Pending
Sodium 133 L
Potassium 3.8
Chloride 102
Carbon Dioxide 21 L
BUN 6 L
Creatinine 0.3 L
Glucose 90
Calcium 8.4
Vital Signs:
Vital Signs
Temp Pulse Resp BP Pulse Ox
98.9 F 92 16 129/72 94
02/20/24 23:00 02/20/24 23:00 02/20/24 23:00 02/20/24 23:00 02/20/24 23:00
I&O
02/19/24 02/20/24 02/21/24
06:59 06:59 06:59
Intake Total 2660 / 2660 340 / 340 720 / 720
Output Total 240 / 240
Balance 2420 / 2420 340 / 340 720 / 720
[2024-02-21 07:05] LABS: Glucose - Point of Care 103 mg/dl (70-99)
--- NOTE | 2024-02-21 07:28 | PN.DE.MGMTRT ---
Insulin Management
- -
02/21/2024: Diabetes Management Consult Follow up
Pt admitted on 02/12 with infection of right surgical hip wound. 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
POD#5 s/p right hip I&D.
Prior to admission was taking Lantus 15 units @ HS. Recent A1C 8.5% on 01/07, Cr 0.5, eGFR>60
Pt awake, alert, sitting in bed, c/o pain, is slightly confused to where she is. Patient states staff at [place] were monitoring her blood sugars once a day and administering her insulin.
Yesterday Lantus decreased to 18 units, NovoLog AC 7 units. FBG 90 venous this AM. Will decrease lantus to 16 units @ 18:30
Novolog was not given at breakfast or dinner, nurse reports patient not eating, 7 units given at lunch. Glucose range pre meal 99 to 118. Will decrease AC novolog to 4 units.
Pt resides in [place] and should be able to receive her insulin as prescribed.
Discussed diabetes plan of care with patients nurse.
Diabetes History
- -
Type of Diabetes: 2 requiring insulin
Pre-Admission Diabetes Regimen
02/21/24
05:22
Creatinine 0.3 L
Insulin Pump Settings
IP Diabetes Regimen
02/20/24 02/20/24 02/20/24
11:44 16:27 21:53
Glucose
POC Glucose 99 118 H 108 H
02/21/24 02/21/24
05:22 07:03
Glucose 90
POC Glucose 103 H
Meal type: Lunch
Meal type: Breakfast
Amount consumed: 10%
Amount consumed: 5%
Patient Education
[2024-02-21 07:43] VITALS: BP 125/69
--- NOTE | 2024-02-21 08:10 | W.PN.ORTHO ---
Today's Communication / Plan
-
PT/OT
Weightbearing as tolerated
Antibiotics per infectious disease recommendations, currently on Unasyn
Eliquis half dose for first 3 days postop then return to usual dose
Skin clips to be removed 2 weeks postop; will plan for dressing change tomorrow or by RN.
Assessment
.
Distal Motor Intact: Yes
Dressing:
Central strikethrough of bandage; no surrounding erythema
Plan
.
Surgery / Date: Right hip I&D 02/17/24 Dr. Delgado
Activity:
Out of bed.
PT/OT
Subjective
.
.:
Patient resting comfortably.
Vital Signs and Labs
.
Vital Signs and Labs:
Lab Results
02/21/24 05:22
02/21/24 05:22
Temp Pulse Resp BP Pulse Ox
98.6 F 98 18 125/69 96
02/21/24 07:43 02/21/24 07:43 02/21/24 07:43 02/21/24 07:43 02/21/24 07:43
PT 15.1 Sec (11.4-14.6) H 02/17/24 07:34
INR 1.21 02/17/24 07:34
[2024-02-21] MEDS: NOVOLOG FLEXPEN-LOW RESISTANCE SC ×2 (08:58→13:19)
[2024-02-21] MEDS: COLACE PO ×2 (08:59→21:21)
[2024-02-21] MEDS: NOVOLOG FLEXPEN 4 UNITS SC ×3 (08:59→17:59)
[2024-02-21] MEDS: MIRALAX PO (09:00)
[2024-02-21] MEDS: DESENEX/MITRAZOL/ZEASORB 1 APPLIC TOPICAL ×2 (09:00→21:23)
[2024-02-21] MEDS: DUPHALAC/CHRONULAC PO ×2 (09:00→21:21)
[2024-02-21] MEDS: ELIQUIS 2.5 MG PO (09:00)
[2024-02-21] MEDS: SENOKOT PO ×2 (09:01→21:21)
[2024-02-21] MEDS: CARDIZEM CD 180 MG PO (09:04)
--- NOTE | 2024-02-21 10:06 | PN.CDI ---
CDI
- -
CDI:
Physician Documentation Request
Admit Date: 02/13/24 16:41
Dear Doctor Johnson,
Please review the following and provide your response in the progress notes.
Clinical Indicators:
02/12 Pt. admitted with right hip surgical wound infection.
02/18 ID note: 'Assessment-DM2 uncontrolled.' 'Chief complaint Cellulitis.' 'outpatient recommend tightening diabetic control.'
Laboratory Tests
02/17/24 02/18/24 02/19/24
13:30 13:12 12:21
POC Glucose 152 H 308 H 214 H
Please clarify the relationship between these conditions:
Yes, Cellulitis is related to/associated with/due to Diabetes.
No, Cellulitis is not related to/associated with/due to Diabetes but it is due to ___. (Please specify)
Unable to determine
Use of terms such as suspected, likely, concern for, or probable (associated with a specific diagnosis that is being evaluated, monitored, or treated as if it exists) are acceptable and can be coded in the inpatient setting, when documented at the
time of discharge.
Thank you,
Michelle Cordova RN, BSN
CDI Specialist
[employer]
Please use your independent medical judgment in providing your response.
--- NOTE | 2024-02-21 10:39 | PN.CDI ---
CDI
- -
CDI:
Physician Documentation Request
Admit Date: 02/13/24 16:41
Dear Doctor Yan,
Please review the following and provide your response in the progress notes.
Clinical Indicators:
02/12 Pt admitted with right hip surgical wound infection.
Pt received NSS IVF
Laboratory Tests
02/19/24 02/20/24 02/21/24
07:09 06:04 05:22
Sodium 134 L 136 133 L
Based on the above, could you please clarify in the progress notes, the appropriate diagnosis, if significant, that supports the above abnormalities and additional evaluation, monitoring and/or treatment rendered:
hyponatremia
insignificant lab finding
Other
Use of terms such as suspected, likely, concern for, or probable (associated with a specific diagnosis that is being evaluated, monitored, or treated as if it exists) are acceptable and can be coded in the inpatient setting, when documented at the
time of discharge.
Thank you,
Michelle Cordova RN, BSN
CDI Specialist
Please use your independent medical judgment in providing your response.
[2024-02-21 11:14] LABS: Glucose - Point of Care 132 mg/dl (70-99)
--- NOTE | 2024-02-21 12:21 | WOUNDNOTE ---
[facility] RN NOTE: Visited patient to follow up on sacral and left heel wound. Sacral stage 2 appears stable. Per RN, [place] patient has been refusing foam dressings so staff have be appropriately applying Calazime, providing continence care and frequent
repositioning. Betadine has worn off left heel, and darkened skin can be seen under callus/rough skin. The darkened area is DTI vs unstageable wound. Will recommend daily Betadine to left heel daily. Patient continues to decline adhesive foam to
heel, but she is tolerating fiber filled boot. Patient continues on [facility] Air bed. Per chart review, patients intake has been poor over the past 24 hours. Plan is for patient to return to SNF at [facility]. Will follow as needed.
[2024-02-21 15:27] VITALS: BP 114/50
[2024-02-21 16:09] LABS: Glucose - Point of Care 169 mg/dl (70-99)
--- NOTE | 2024-02-21 17:49 | W.PN.ID1 ---
Addendum entered and electronically signed by Jimena Ornelas MD 02/22/24 08:56:
In response to CDI querry, DM2 is a risk factor for cellulitis; it is related.
Original Note:
Date of Service
Date of Service: February 21, 2024
Today's Communication
- switch to cefazolin, on discharge switch to keflex to complete 14 days of therapy through 02/26
- stable for dc from ID perspective
Assessment / Plan
# Post-op right hip SSTI
# DM2 uncontrolled
- recent right prox femur fracture gamma nailing 01/24/2024.
- 02/10/2024 ED superficial swab of drainage - Klebsiella, E. faecalis
- 02/17/2024 s/p I+D. Per Ortho, no purulence, + small amount of sero-sanguinous fluid.
- Appreciate ortho
- OR culture few K pneumoniae
- outpatient recommend tightening diabetic control
- switch to cefazolin, on discharge switch to keflex to complete 14 days of therapy through 02/26
- stable for dc from ID perspective
#Additional Past Medical History:
Dyslipidemia
CAD status post stents
Ischemic cardiomyopathy
Atrial fibrillation
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
PAD status post right BKA
DVT status post IVC filter placement
Depression
Thrombophilia
Cholecystectomy
Bilateral rotator cuff repair
Laminectomy
Left hip fracture status post gamma nailing in 2020
Right proximal femur fracture status post gamma nail January 24, 2024
Chief Complaint
-: Cellulitis
Subjective / Review of Systems
afebrile
bp stable
without leukocytosis
cr stable
feels well
asking about dc
Vital Signs / Physical Exam
Vital Signs
Vital Signs
Temp Pulse Resp BP Pulse Ox
99.5 F 76 17 114/50 95
02/21/24 15:27 02/21/24 15:27 02/21/24 15:27 02/21/24 15:27 02/21/24 15:27
Physical Exam
Constitutional: No Acute Distress
Cardiovascular: Regular Rate and S1/S2; Negative Murmur or Rub
Pulmonary: Clear and Symmetric; Negative Wheezes or Rales
Gastrointestinal: Soft, Non Tender, Non Distended and Normal Bowel Sounds
Skin: Warm and Dry; Negative Rash or Jaundice
Objective Data
Lab Data
Lab Results
02/21/24 05:22
02/21/24 05:22
ESR 52 mm/hour (0-20) H 02/17/24 07:34
PT 15.1 Sec (11.4-14.6) H 02/17/24 07:34
INR 1.21 02/17/24 07:34
Estimated Creat Clear 91 ml/min 02/21/24 05:22
Lactic Acid 1.5 mmol/L (0.7-2.0) 02/13/24 14:23
Total Bilirubin 0.8 mg/dl (0.2-1.3) 02/13/24 14:23
AST 18 U/L (14-36) 02/13/24 14:23
ALT 15 U/L (0-35) 02/13/24 14:23
Alkaline Phosphatase 137 U/L (38-126) H 02/13/24 14:23
C-Reactive Protein 13.10 mg/L (0.0-10.00) H 02/17/24 07:34
Most recent labs reviewed.
Micro Results:
02/17/24 12:44 Anaerobic Culture - Preliminary
Hip - Right Culture pending. Anaerobic cultures are examined after 3
days incubation. Additional information to follow.
02/17/24 12:44 Wound Culture - Preliminary
Hip - Right Klebsiella pneumoniae
Gram Stain - Preliminary
04/25/24 14:23 Blood Culture - Final
Blood/Venous No Growth - Final Report
[2024-02-21] MEDS: NOVOLOG FLEXPEN-LOW RESISTANCE 1 UNITS SC (18:00)
[2024-02-21] MEDS: LANTUS 0.179999999999999993 UNITS SC (18:02)
--- NOTE | 2024-02-21 18:33 | CM ---
Discharge Plan of Care: Return to [facility] for [facility] (is LTC resident) when medically cleared.
[2024-02-21] MEDS: ANCEF 2.5 MG IV (18:36)
[2024-02-21] MEDS: ELIQUIS 5 MG PO (21:21)
[2024-02-21 22:41] LABS: Glucose - Point of Care 81 mg/dl (70-99)
[2024-02-21 23:39] VITALS: BP 129/67
[2024-02-22] MEDS: ANCEF 2.5 MG IV ×2 (01:26→10:38)
[2024-02-22] MEDS: FLUSH (NSS) 2 FLUSH IV ×2 (01:27→10:39)
--- NOTE | 2024-02-22 06:38 | W.PN.HOSP.TC ---
Addendum entered and electronically signed by Brian Heredia MD 02/22/24 18:04:
Mild Intermittent Hyponatremia, nonsignificant
Original Note:
Today's Communication/Plan
-
discharge
Assessment / Plan
Assessment / Plan
HPI: HPI: 68-year-old female with a past medical history of right proximal femur fracture status post right hip gamma nail/03/[address] Delgado, dementia residing at [facility], anemia, ambulatory dysfunction, right BKA in 2020, thrombophilia,
and paroxysmal atrial fibrillation on Eliquis presents with an infection of her right surgical hip wound. Patient was seen by orthopedic surgery in the office. She had wound cultures, growing Klebsiella, Enterococcus, sensitive to Ancef and
vancomycin. Currently her pain is 4 out of 10 in intensity. She denies fever. No chest pain, no shortness of breath, no palpitations. No nausea, no vomiting. No abdominal pain. She does complain of dysuria. No black or bloody stools.
#Right hip surgical wound infection
Outpatient wound cultures grew out Klebsiella and Enterococcus, sensitivities reviewed
orthopedic eval appreciated
Eliquis held for surgical I&D on Friday 02/[address] Delgado, completed reduced dose as per orthopedic for 3 days post-op, home 5 mg BID resumed
I&D wound cx's appreciated K pneumonia resistant to Ampicillin, otherwise relatively pansensitive
ID eval appreciated Unasyn narrowed to cefazolin, later switched to Augmentin to complete 14 days therapy through 02/26
Tylenol 1 g 3 times daily, oxycodone as needed, bowel regimen
#Chronic ambulatory dysfunction secondary to right BKA
PT/OT appreciated SNF rehab
#Dementia, unknown type
Resides at [facility]
#Permanent atrial fibrillation
Eliquis resumed at reduced dose for post-op 3 days as per orthopedic, completed home dose 5 mg BID resumed
Continue diltiazem
#Type 2 diabetes
Diabetes [employer] consult appreciated insulin regimen increased to glargine 20U later decreased to 18U, NovoLog 7 units AC
Sliding scale insulin, diabetic diet
carb controlled diet
sugar controll at goal at this time
#Hyperkalemia
Resolved
#Hyperlipidemia
Continue statin
#Chronic anemia
Monitor hemoglobin
stable trending up
#Stage 2 sacral wound POA
Local Wound Care
DVT prophylaxis�Eliquis
DNR
Medically stable for discharge to SNF rehab with outpatient follow up recommendations
Discussed with Daughter in Law Escamilla
Total Time Preparing Discharge ___50____ minutes including examination of the patient, summary of the hospital stay, instructions for continuing care to all relevant caregivers; and preparation of discharge records, prescriptions, and referral
forms if necessary.
Physical Exam
General: No Apparent Distress
HEENT: NormoCephalic, Moist mucous membranes and Atraumatic
Respiratory: Clear
Cardiac: S1/S2 Irregularly Irregular
GI: Soft, Non Tender, Non Distended and Normal Bowel Sounds
Musculoskeletal: Right BKA noted
Skin: Right hip surgical wound dressed
Neuro: AOx2 disoriented to Time
Psych: Calm
Anticipated Discharge: Today
Subjective/Interval History
-
Date of Service: February 22, 2024
Seen and examined at bedside in no acute distress resting comfortably in bed. Denies new acute issues at this time. Overall reports feeling well .
Objective Data
-
Labs:
Laboratory Results
02/22/24
05:42
WBC Pending
Hgb Pending
Hct Pending
Plt Count Pending
Sodium Pending
Potassium Pending
Chloride Pending
Carbon Dioxide Pending
BUN Pending
Creatinine Pending
Glucose Pending
Calcium Pending
Vital Signs:
Vital Signs
Temp Pulse Resp BP Pulse Ox
99.5 F 90 19 129/67 97
02/21/24 23:39 02/21/24 23:39 02/21/24 23:39 02/21/24 23:39 02/21/24 23:39
I&O
02/20/24 02/21/24 02/22/24
06:59 06:59 06:59
Intake Total 340 / 340 720 / 720 660 / 660
Balance 340 / 340 720 / 720 660 / 660
[2024-02-22 07:05] VITALS: BP 148/56
[2024-02-22 07:06] LABS: Hematocrit 35.3 % (37.0-47.0); Hemoglobin 11.2 g/dL (12.0-16.0); Mean Corp Hgb Conc. 31.7 g/dL (33.0-37.0); Mean Corpuscular Hgb 28.4 pg (27.0-31.0); Mean Corpuscular Volume 89.6 fL (81.0-99.0); Platelet Count 320 10^3/uL (130-400); Red Blood Cell Count 3.94 10^6/uL (4.20-5.40); Red Cell Dist. Width 14.8 % (11.5-14.5); White Blood Cell Count 7.1 10^3/uL (4.8-10.8)
[2024-02-22 07:33] LABS: Blood Urea Nitrogen 7 mg/dl (7-17); Calcium 8.7 mg/dl (8.4-10.2); Carbon Dioxide 23 mmol/L (22-30); Chloride 106 mmol/L (98-107); Estimated Creatinine Clearance 91 ml/min; Glucose 75 mg/dl (70-99); Magnesium 2.2 mg/dl (1.6-2.3); Phosphorus 5.1 mg/dl (2.5-4.5); Sodium 137 mmol/L (135-145); eGFR > 60.00
[2024-02-22 08:39] LABS: Glucose - Point of Care 78 mg/dl (70-99)
[2024-02-22] MEDS: NOVOLOG FLEXPEN-LOW RESISTANCE SC ×2 (09:14→13:19)
[2024-02-22] MEDS: CARDIZEM CD 180 MG PO (09:15)
[2024-02-22] MEDS: ELIQUIS 5 MG PO (09:20)
[2024-02-22] MEDS: SENOKOT 17.1999999999999993 MG PO (09:21)
[2024-02-22] MEDS: COLACE 100 MG PO (09:21)
[2024-02-22] MEDS: NOVOLOG FLEXPEN SC (09:21)
[2024-02-22] MEDS: DUPHALAC/CHRONULAC PO (09:21)
[2024-02-22] MEDS: MIRALAX 17 GRAMS PO (09:21)
[2024-02-22] MEDS: DESENEX/MITRAZOL/ZEASORB 1 APPLIC TOPICAL (09:26)
--- NOTE | 2024-02-22 12:44 | W.PN.ID1 ---
Date of Service
Date of Service: February 22, 2024
Today's Communication
- switch to augmetnin to complete 14 days of therapy through 02/26
Assessment / Plan
# Post-op right hip SSTI
# DM2 uncontrolled
- recent right prox femur fracture gamma nailing 01/24/2024.
- 02/10/2024 ED superficial swab of drainage - Klebsiella, E. faecalis
- 02/17/2024 s/p I+D. Per Ortho, no purulence, + small amount of sero-sanguinous fluid.
- Appreciate ortho
- OR culture few K pneumoniae
- outpatient recommend tightening diabetic control
- switch to augmetnin to complete 14 days of therapy through 02/26
- stable for dc from ID perspective
#Additional Past Medical History:
Dyslipidemia
CAD status post stents
Ischemic cardiomyopathy
Atrial fibrillation
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
PAD status post right BKA
DVT status post IVC filter placement
Depression
Thrombophilia
Cholecystectomy
Bilateral rotator cuff repair
Laminectomy
Left hip fracture status post gamma nailing in 2020
Right proximal femur fracture status post gamma nail January 24, 2024
Chief Complaint
-: Cellulitis
Subjective / Review of Systems
afebrile
bp stable
without leukocytosis
cr stable
02/16 wound culture finalized
Vital Signs / Physical Exam
Vital Signs
Vital Signs
Temp Pulse Resp BP Pulse Ox
97.8 F 95 16 148/56 98
02/22/24 07:05 02/22/24 07:05 02/22/24 07:05 02/22/24 07:05 02/22/24 08:00
Physical Exam
Constitutional: No Acute Distress
Cardiovascular: Regular Rate and S1/S2; Negative Murmur or Rub
Pulmonary: Clear and Symmetric; Negative Wheezes or Rales
Gastrointestinal: Soft, Non Tender, Non Distended and Normal Bowel Sounds
Skin: Warm and Dry; Negative Rash or Jaundice
Objective Data
Lab Data
Lab Results
02/22/24 05:42
02/22/24 05:42
ESR 52 mm/hour (0-20) H 02/17/24 07:34
PT 15.1 Sec (11.4-14.6) H 02/17/24 07:34
INR 1.21 02/17/24 07:34
Estimated Creat Clear 91 ml/min 02/22/24 05:42
Lactic Acid 1.5 mmol/L (0.7-2.0) 02/13/24 14:23
Total Bilirubin 0.8 mg/dl (0.2-1.3) 02/13/24 14:23
AST 18 U/L (14-36) 02/13/24 14:23
ALT 15 U/L (0-35) 02/13/24 14:23
Alkaline Phosphatase 137 U/L (38-126) H 02/13/24 14:23
C-Reactive Protein 13.10 mg/L (0.0-10.00) H 02/17/24 07:34
Most recent labs reviewed.
Micro Results:
02/17/24 12:44 Wound Culture - Final
Hip - Right Klebsiella pneumoniae
Gram Stain - Final
02/17/24 12:44 Anaerobic Culture - Final
Hip - Right NO ANAEROBES ISOLATED
02/13/24 14:23 Blood Culture - Final
Blood/Venous No Growth - Final Report
[2024-02-22 13:13] LABS: Glucose - Point of Care 142 mg/dl (70-99)
[2024-02-22] MEDS: NOVOLOG FLEXPEN 4 UNITS SC ×2 (13:20→18:37)
[2024-02-22] MEDS: AUGMENTIN 875 MG/125 MG 1 TABLET PO (13:25)
--- NOTE | 2024-02-22 13:32 | CM ---
Addendum entered by Jay De Dios 02/22/24 15:22:
Discharge order noted.
Pt is aware, expressed her agreement with discharge and she stated she will let her daughter know. IMM reviewed, placed on chart, pt has a copy.
Pt expressed her agreement with returning back to [facility].
CM spoke to [facility] nursing [employer] supervisor Kimberly and she confirmed that pt is accepted for admission today.
[facility] nursing report: [phone]
Discharge instructions fax: [phone]
will arrange ambulance transport, BLS. PMNC completed and left with
D/C plan: [facility]
Original Note:
CM following re: discharge planning.
Reviewed pt's chart, met with p[t.
According to MD pt is medically stable to be discharged today.
Per CM note, pt is a LTC resident at [facility] and per MD pt needs skilled services.
A referral to [facility] made. CM left a message to [facility] assistant art director and [facility] nursing [employer] supervisor.
Awaiting for determination.
D/C plan: [facility] for a short term and a LTC.
CM will follow to assist pt with discharge to [facility] for a short term and a LTC.
.
--- NOTE | 2024-02-22 15:09 | W.DCSUMMARY ---
Discharge Summary
Discharge Data
Date of Admission: 02/13/24
Date of Discharge: 02/22/24
-
Pending Results: No
Hospital Course
68-year-old female with a past medical history of right proximal femur fracture status post right hip gamma nail/03/[address] Delgado, dementia residing at [facility], anemia, ambulatory dysfunction, right BKA in 2020, thrombophilia, and
paroxysmal atrial fibrillation on Eliquis presents with an infection of her right surgical hip wound. Patient was seen by orthopedic surgery in the office. She had wound cultures, growing Klebsiella, Enterococcus, sensitive to Ancef and
vancomycin. Right hip surgical wound infection, Eliquis was held for surgical I&D on Friday 02/[address] Delgado, completed reduced dose as per orthopedic for 3 days post-op, home 5 mg BID resumed. I&D wound cx's appreciated K pneumonia resistant
to Ampicillin, otherwise relatively pansensitive. ID rajwinder appreciated Unasyn narrowed to cefazolin, later switched to Augmentin to complete 14 days therapy through 02/26. Pain controlled with Tylenol 1 g 3 times daily and oxycodone as needed,
bowel regimen was given. PT/OT evaluated and recommended SNF rehab. Permanent atrial fibrillation, Eliquis was resumed at reduced dose for post-op 3 days as per orthopedic, following which home dose 5 mg BID was resumed. Medically stable, patient
was discharged to SNF rehab with outpatient follow up recommendations.
Discharge Plan
-
Patient Disposition: [facility]/SNF
Discharge Diagnosis/Procedures: Right hip surgical wound infection irrigation and debridement, history Right Hip Fracture Right Proximal Femur status post long stem gamma fixation, Chronic Ambulatory Dysfunction secondary to right below knee
amputation, Dementia, Permanent Atrial Fibrillation, Type 2 Diabetes, Hyperkalemia resolved, Hyperlipidemia, Chronic Anemia, Stage 2 sacral wound present on admission, Osteoporosis,
Condition: Fair
Diet: Diabetic, Carb Controlled
Activity: With assistance and With Walker
Driving Restrictions: Not until seen by your Dr
Bathing Restrictions: OK to Shower
Blood Work: Please repeat CBC and BMP with primary care provider in 1 week of discharge.
Other Services: PT and OT
Activity Restrictions/Additional Instructions:
Wound Care Instructions Sacrum- Clean with normal saline or soap and water. Apply a thin layer of Calazime and cover with silicone border foam. Change Q days and if loose or soiled
Left Heel- Betadine swab to left heel daily.
Air bed
Fiber filled boot to left heel
Turning schedule
Skin Clips to be removed 2 weeks post-op 03/02/24Saturday
Please follow up with primary care provider in 1 week of discharge, orthopedic in 2 weeks of discharge, and infectious disease in 2-4 weeks of discharge.
acetaminophen 325 mg tablet 650 mg PO Q4HPRN PRN mild pain/fever>100.4
apixaban 5 mg tablet (Eliquis) 5 mg PO BID@08,1830 for Atrial Fibrillation
nitroglycerin 0.4 mg sublingual tablet 0.4 mg sublingual [id number] PRN chest pain
diltiazem HCl 180 mg capsule,extended release 24 hr 180 mg PO DAILY@0830 For Atrial Fibrillation
epinephrine 0.3 mg/0.3 mL injection, auto-injector 0.3 mg IM DAILYPRN PRN ANAPHYLAXIS
pravastatin 40 mg tablet 40 mg PO DAILY@1830 High Cholesterol
bisacodyl 10 mg rectal suppository 10 mg WA [id number] PRN lack of BM/MOM ineffective
cholecalciferol (vitamin D3) 250 mcg (10,000 unit) tablet 750 mcg PO QMONTH@0830 Supplement
magnesium hydroxide 400 mg/5 mL oral suspension (Milk of Magnesia) 30 ml PO HSPRN PRN lack of BM
Saccharomyces boulardii 250 mg capsule (Probiotic (S.boulardii)) 250 mg PO BID@0830,1800 Gastrointestinal Issue
sennosides 8.6 mg-docusate sodium 50 mg tablet (Stool Softener-Stimulant Laxative) 1 tab PO DAILY@1830 Constipation
amoxicillin 875 mg-potassium clavulanate 125 mg tablet 1 tab PO Q12 0 days #11 tabs Antibiotic for wound infection to continue through 02/27/24 then stop
insulin glargine 100 unit/mL subcutaneous solution 18 unit (0.18 mL) SC DAILY@1829 Diabetes increased home medication 15U to 18U for better control diabetes
oxycodone 10 mg tablet 10 mg PO [id number] PRN severe pain 5 days #10 tabs
oxycodone 5 mg tablet 5 mg PO [id number] PRN moderate pain 5 days #10 tabs
Please take medications as prescribed/recommended and follow up with primary care provider and/or other healthcare provider involved in your care for refills and/or further adjustments to your medication regimen as necessary.
Referrals:
Edson Delgado MD [Active] - in two weeks
UNKNOWN - PT DOES,NOT KNOW [Family Provider] -
Jimena Ornelas MD [Active] - in two to four weeks
Prescriptions:
New
amoxicillin-pot clavulanate 875-125 mg Tablet
1 tab PO Q12 0 Days Qty: 11 0RF
Rx Instructions:
To continue through 02/27/24 then stop
oxycodone 5 mg Tablet
5 mg PO [id number] PRN (Reason: moderate pain) 5 Days Qty: 10 0RF
oxycodone 10 mg Tablet
10 mg PO [id number] PRN (Reason: severe pain) 5 Days Qty: 10 0RF
Continued
acetaminophen 325 MG tablet
650 mg PO Q4HPRN MDD 3000 mg PRN (Reason: mild pain/fever>100.4)
Eliquis 5 MG tablet
5 mg PO BID@829,1829
Patient Comments:
nitroglycerin 0.4 MG tablet, sublingual
0.4 mg sublingual [id number] PRN (Reason: chest pain)
diltiazem HCl 180 MG capsule,extended release 24hr
180 mg PO DAILY@829
pravastatin 40 mg Tablet
40 mg PO DAILY@1830
epinephrine 0.3 mg/0.3 mL Auto-Injector
0.3 mg IM DAILYPRN PRN (Reason: ANAPHYLAXIS)
magnesium hydroxide [Milk of Magnesia] 400 mg/5 mL Suspension
30 ml PO HSPRN PRN (Reason: lack of BM)
bisacodyl 10 mg Suppository
10 mg WA [id number] PRN (Reason: lack of BM/MOM ineffective)
cholecalciferol (vitamin D3) 250 mcg (10,000 unit) Tablet
750 mcg PO QMONTH@0830
Saccharomyces boulardii [Probiotic (S.boulardii)] 250 mg Capsule
250 mg PO BID@0830,1800
Rx Instructions:
02/13/2024, first date: 02/07/2024 through 02/17/2024.
sennosides-docusate sodium [Stool Softener-Stimulant Laxat] 8.6-50 mg tablet
1 tab PO DAILY@183
Changed
insulin glargine 100 unit/mL Solution
18 unit SC DAILY@1829 Qty: 0 0RF
Discontinued
cefadroxil 500 mg Capsule
500 mg PO BID@1200,2000
Rx Instructions:
02/13/2024, first date: 02/07/2024 through 02/16/2024.
oxycodone 5 mg tablet
2.5 mg PO BIDPRN PRN (Reason: severe pain)
Discharge Orders:
Discharge Patient (As Directed); Ordered 02/22/24
Ordered By: Brian Heredia
Discharge Date and Time
Discharge Date/Time: 02/22/24 20:26
Print Language: GEORGIAN
[2024-02-22 15:52] VITALS: BP 136/68
[2024-02-22 17:08] LABS: Glucose - Point of Care 151 mg/dl (70-99)
[2024-02-22] MEDS: LANTUS SC (18:30)
[2024-02-22] MEDS: NOVOLOG FLEXPEN-MODERATE RESISTANCE 1 UNITS SC (18:36)
[2024-02-22] MEDS: NOVOLOG FLEXPEN-LOW RESISTANCE 1 UNITS SC (18:37)
== END 2024-02-22 20:26 | DRG 863 ==
LOC: 2 NORTH 16:41
PROVIDERS: Emergency Medicine; Physician Assistant Surgical; Specialist; Student in an Organized Health Care Education/Training Program; ADMITTING PHYSICIAN Family Medicine; ATTENDING PHYSICIAN Internal Medicine; CONSULT PHYSICIAN Internal Medicine Infectious Disease; EMERGENCY PHYSICIAN Emergency Medicine
PROC: 0S990ZX Drainage of Right Hip Joint, Open Approach, Diagnostic (ICD-10-PCS; 2024-02-17)
DX: T81.49XA Infection following a procedure, other surgical site, initial encounter (principal); D68.59 Other primary thrombophilia; I48.21 Permanent atrial fibrillation; F03.A3 Unspecified dementia, mild, with mood disturbance; E11.52 Type 2 diabetes mellitus with diabetic peripheral angiopathy with gangrene; Z16.11 Resistance to penicillins; L03.115 Cellulitis of right lower limb; E87.1 Hypo-osmolality and hyponatremia; Y83.8 Other surgical procedures as the cause of abnormal reaction of the patient, or of later complication, without mention of misadventure at the time of the procedure; Y92.9 Unspecified place or not applicable; I25.10 Atherosclerotic heart disease of native coronary artery without angina pectoris; E11.9 Type 2 diabetes mellitus without complications; I25.5 Ischemic cardiomyopathy; D64.9 Anemia, unspecified; B96.1 Klebsiella pneumoniae [K. pneumoniae] as the cause of diseases classified elsewhere; B95.2 Enterococcus as the cause of diseases classified elsewhere; E11.36 Type 2 diabetes mellitus with diabetic cataract; E87.5 Hyperkalemia; E78.00 Pure hypercholesterolemia, unspecified; L89.152 Pressure ulcer of sacral region, stage 2; R26.2 Difficulty in walking, not elsewhere classified; E11.628 Type 2 diabetes mellitus with other skin complications; M81.0 Age-related osteoporosis without current pathological fracture; F32.A Depression, unspecified; Z66 Do not resuscitate; Z88.0 Allergy status to penicillin; Z95.5 Presence of coronary angioplasty implant and graft; I25.2 Old myocardial infarction; Z89.511 Acquired absence of right leg below knee; Z87.440 Personal history of urinary (tract) infections; Z86.718 Personal history of other venous thrombosis and embolism; Z95.828 Presence of other vascular implants and grafts; Z79.01 Long term (current) use of anticoagulants; I69.320 Aphasia following cerebral infarction
CPT/HCPCS: 80048; 80053; 82962; 83605; 83735; 84100; 85014; 85018; 85025; 85027; 85610; 85652; 86140; 87040; 87070; 87075; 87077; 87186; 87205; 96365; 96366; 96375; 97116; 97163; 97164; 97167; 97530; 97535; 99285

== ENCOUNTER → 2024-02-28 09:16 | Outpatient (REF) | payer MEDICARE, OTHER, SELFPAY ==
[2024-02-28 10:03] LABS: Hematocrit 34.6 % (37.0-47.0); Hemoglobin 10.9 g/dL (12.0-16.0); Mean Corp Hgb Conc. 31.5 g/dL (33.0-37.0); Mean Corpuscular Hgb 28.2 pg (27.0-31.0); Mean Corpuscular Volume 89.4 fL (81.0-99.0); Mean Platelet Volume 10.5 fL (7.4-10.4); Platelet Count 284 10^3/uL (130-400); Red Blood Cell Count 3.87 10^6/uL (4.20-5.40); Red Cell Dist. Width 14.4 % (11.5-14.5); White Blood Cell Count 6.1 10^3/uL (4.8-10.8)
[2024-02-28 12:34] LABS: Blood Urea Nitrogen 9 mg/dl (7-17); Carbon Dioxide 25 mmol/L (22-30); Chloride 103 mmol/L (98-107); Glucose 197 mg/dl (70-99); Potassium 4.6 mmol/L (3.5-5.1); Sodium 133 mmol/L (135-145); eGFR > 60.00
== END ==
LOC: OLABN 09:16
PROVIDERS: ATTENDING PHYSICIAN Internal Medicine Geriatric Medicine
DX: E87.1 Hypo-osmolality and hyponatremia (principal); D64.9 Anemia, unspecified
CPT/HCPCS: 36415; 80048; 85027

== ENCOUNTER → 2024-04-08 10:31 | Outpatient (REF) | payer OTHER, MEDICARE, SELFPAY ==
[2024-04-08 12:08] LABS: Blood Urea Nitrogen 10 mg/dl (7-17); Calcium 8.7 mg/dl (8.4-10.2); Carbon Dioxide 26 mmol/L (22-30); Chloride 103 mmol/L (98-107); Glucose 151 mg/dl (70-99); Potassium 4.4 mmol/L (3.5-5.1); Sodium 137 mmol/L (135-145); eGFR > 60.00
== END ==
LOC: OLABN 10:31
PROVIDERS: ATTENDING PHYSICIAN Internal Medicine Geriatric Medicine
DX: E11.9 Type 2 diabetes mellitus without complications (principal)
CPT/HCPCS: 36415; 80048; 83036

== ENCOUNTER → 2024-04-30 14:06 | Outpatient (REF) | payer MEDICARE, OTHER, SELFPAY ==
[2024-04-30 14:37] LABS: Urine Albumin Negative (Neg - Trace); Urine Bilirubin Negative (Negative); Urine Character Very Cloudy (Clear); Urine Color Yellow; Urine Glucose Negative (Negative); Urine Ketone Negative (Negative); Urine Leukocyte 2+ (Negative); Urine Nitrite Positive (Negative); Urine Occult Blood Trace (Negative); Urine Specific Gravity 1.015 (<1.030); Urine Urobilinogen Negative (Neg - 1+)
[2024-04-30 15:10] LABS: Urine Squamous Cell 26-30 /LPF (Few)
[2024-04-30 15:12] LABS: Urine Red Blood Cell 0-2 /HPF (0-2)
[2024-04-30 15:13] LABS: Urine Bacteria Many (Negative); Urine White Cell 80-90 /HPF (0-5)
== END ==
LOC: OLABN 14:06
PROVIDERS: ATTENDING PHYSICIAN Internal Medicine Geriatric Medicine
DX: R35.0 Frequency of micturition (principal)
CPT/HCPCS: 81003; 81015; 87077; 87086; 87186

== ENCOUNTER → 2024-07-06 13:44 | Outpatient (REF) | payer MEDICARE, OTHER, SELFPAY | LOC: WDC 13:44 | PROVIDERS: ATTENDING PHYSICIAN Internal Medicine Geriatric Medicine | DX: Z12.31 Encounter for screening mammogram for malignant neoplasm of breast (principal) | CPT/HCPCS: 77063; 77067 ==

== ENCOUNTER → 2024-07-08 11:37 | Outpatient (REF) | payer MEDICARE, OTHER, SELFPAY ==
[2024-07-08 12:30] LABS: Hematocrit 36.7 % (37.0-47.0); Hemoglobin 12.3 g/dL (12.0-16.0); Mean Corp Hgb Conc. 33.5 g/dL (33.0-37.0); Mean Corpuscular Hgb 28.8 pg (27.0-31.0); Mean Corpuscular Volume 85.9 fL (81.0-99.0); Mean Platelet Volume 9.9 fL (7.4-10.4); Platelet Count 326 10^3/uL (130-400); Red Blood Cell Count 4.27 10^6/uL (4.20-5.40); Red Cell Dist. Width 14.4 % (11.5-14.5); White Blood Cell Count 5.8 10^3/uL (4.8-10.8)
[2024-07-08 12:52] LABS: ALT (SGPT) 30 U/L (0-35); AST (SGOT) 35 U/L (14-36); Albumin 4.2 g/dl (3.5-5.0); Alkaline Phosphatase 84 U/L (38-126); Blood Urea Nitrogen 7 mg/dl (7-17); Calcium 9.2 mg/dl (8.4-10.2); Carbon Dioxide 26 mmol/L (22-30); Chloride 99 mmol/L (98-107); Glucose 83 mg/dl (70-99); HDL Cholesterol 46 mg/dl; LDL Cholesterol, Calculated 86 mg/dl; Potassium 4.4 mmol/L (3.5-5.1); Sodium 138 mmol/L (135-145); Total Bilirubin 0.6 mg/dl (0.2-1.3); Total Cholesterol 154 mg/dl (50-199); Total Protein 6.7 g/dl (6.3-8.2); Triglyceride 110 mg/dl (10-149); Very Low Density Lipoprotein 22 mg/dl (0-30); eGFR > 60.00
[2024-07-08 13:26] LABS: Glycohemoglobin (HgbA1c) 7.2 % (4.0-5.6)
== END ==
LOC: OLABN 11:37
PROVIDERS: ATTENDING PHYSICIAN Internal Medicine Geriatric Medicine
DX: E11.9 Type 2 diabetes mellitus without complications (principal); E78.5 Hyperlipidemia, unspecified; I10 Essential (primary) hypertension; E55.9 Vitamin D deficiency, unspecified
CPT/HCPCS: 36415; 80053; 80061; 82306; 83036; 85027

== ENCOUNTER 2024-08-12 06:31 | Day surgery (SDC) | payer MEDICARE, OTHER, SELFPAY ==
[2024-08-12 07:08] VITALS: BMI 27.5
[2024-08-12 07:09] VITALS: BMI 28.3
[2024-08-12 07:11] VITALS: BP 137/61
[2024-08-12 07:30] LABS: Glucose - Point of Care 131 mg/dl (70-99)
[2024-08-12 09:39] VITALS: BP 107/58
[2024-08-12 09:45] VITALS: BP 102/53
[2024-08-12 09:46] LABS: Glucose - Point of Care 101 mg/dl (70-99)
[2024-08-12 10:00] VITALS: BP 108/73
== END 2024-08-12 10:32 | disposition home or self-care (01) ==
LOC: GI 06:31
PROVIDERS: ATTENDING PHYSICIAN Internal Medicine Gastroenterology
DX: Z12.11 Encounter for screening for malignant neoplasm of colon (principal); R19.5 Other fecal abnormalities; K57.30 Diverticulosis of large intestine without perforation or abscess without bleeding
CPT/HCPCS: 45385; 45381; 88305; 82962

== ENCOUNTER → 2024-10-07 07:16 | Outpatient (REF) | payer MEDICARE, OTHER, SELFPAY ==
[2024-10-07 11:13] LABS: Blood Urea Nitrogen 14 mg/dl (7-17); Calcium 8.8 mg/dl (8.4-10.2); Carbon Dioxide 29 mmol/L (22-30); Chloride 99 mmol/L (98-107); Glucose 102 mg/dl (70-99); HDL Cholesterol 43 mg/dl; LDL Cholesterol, Calculated 47 mg/dl; Potassium 4.5 mmol/L (3.5-5.1); Sodium 136 mmol/L (135-145); Total Cholesterol 113 mg/dl (50-199); Triglyceride 115 mg/dl (10-149); Very Low Density Lipoprotein 23 mg/dl (0-30); eGFR > 60.00
[2024-10-07 11:53] LABS: Glycohemoglobin (HgbA1c) 7.3 % (4.0-5.6)
== END ==
LOC: OLABN 07:16
PROVIDERS: ATTENDING PHYSICIAN Surgery Vascular Surgery; FAMILY PHYSICIAN Internal Medicine Geriatric Medicine
DX: I73.9 Peripheral vascular disease, unspecified (principal); E78.5 Hyperlipidemia, unspecified; E11.9 Type 2 diabetes mellitus without complications
CPT/HCPCS: 36415; 80048; 80061; 83036; 93922; 93925

== ENCOUNTER 2024-12-22 06:23 | Day surgery (SDC) | payer MEDICARE, OTHER, SELFPAY ==
[2024-12-22 09:05] VITALS: BMI 28.1
[2024-12-22 09:25] VITALS: BP 131/72
[2024-12-22 09:33] LABS: Glucose - Point of Care 93 mg/dl (70-99)
[2024-12-22 09:39] VITALS: BMI 28.1
[2024-12-22 11:38] VITALS: BP 115/66
[2024-12-22 11:44] LABS: Glucose - Point of Care 78 mg/dl (70-99)
[2024-12-22 11:45] VITALS: BP 111/61
== END 2024-12-22 12:24 ==
LOC: GI 06:23
PROVIDERS: ATTENDING PHYSICIAN Specialist
DX: Z09 Encounter for follow-up examination after completed treatment for conditions other than malignant neoplasm (principal); Z86.0101 Personal history of adenomatous and serrated colon polyps; K57.30 Diverticulosis of large intestine without perforation or abscess without bleeding; D12.2 Benign neoplasm of ascending colon; D12.3 Benign neoplasm of transverse colon; D12.4 Benign neoplasm of descending colon
CPT/HCPCS: 45385; 45381; 45380; 88305; 82962

== ENCOUNTER → 2025-01-06 11:35 | Outpatient (REF) | payer MEDICARE, OTHER, SELFPAY ==
[2025-01-06 12:38] LABS: Glycohemoglobin (HgbA1c) 8.1 % (4.0-5.6)
[2025-01-06 14:18] LABS: Blood Urea Nitrogen 10 mg/dl (7-17); Carbon Dioxide 27 mmol/L (22-30); Chloride 100 mmol/L (98-107); Glucose 107 mg/dl (70-99); Potassium 4.8 mmol/L (3.5-5.1); Sodium 135 mmol/L (135-145); eGFR > 60.00
== END ==
LOC: OLABN 11:35
PROVIDERS: ATTENDING PHYSICIAN Internal Medicine Geriatric Medicine
DX: E11.9 Type 2 diabetes mellitus without complications (principal)
CPT/HCPCS: 36415; 80048; 83036

== ENCOUNTER 2025-02-04 06:22 | Day surgery (SDC) | payer MEDICARE, OTHER, SELFPAY ==
[2025-02-04] VITALS (19 sets, daily range): BP systolic 15–169; BP diastolic 43–148; BMI 28.1
[2025-02-04 07:02] LABS: Hematocrit 36.1 % (37.0-47.0); Hemoglobin 11.8 g/dL (12.0-16.0); Mean Corp Hgb Conc. 32.7 g/dL (33.0-37.0); Mean Corpuscular Hgb 28.6 pg (27.0-31.0); Mean Corpuscular Volume 87.6 fL (81.0-99.0); Mean Platelet Volume 9.8 fL (7.4-10.4); Platelet Count 207 10^3/uL (130-400); Red Blood Cell Count 4.12 10^6/uL (4.20-5.40); Red Cell Dist. Width 14.5 % (11.5-14.5); White Blood Cell Count 5.4 10^3/uL (4.8-10.8)
[2025-02-04 07:13] LABS: PT 15.8 Sec (11.4-14.6)
[2025-02-04 07:14] LABS: APTT 33.4 Sec (23.4-35.0)
[2025-02-04 07:23] LABS: Blood Urea Nitrogen 14 mg/dl (7-17); Calcium 9.3 mg/dl (8.4-10.2); Carbon Dioxide 28 mmol/L (22-30); Chloride 102 mmol/L (98-107); Estimated Creatinine Clearance 101 ml/min; Glucose 125 mg/dl (70-99); Potassium 4.4 mmol/L (3.5-5.1); Sodium 139 mmol/L (135-145); eGFR > 60.00
--- NOTE | 2025-02-04 07:40 | W.SUR.PREOP ---
Pre-Operative Surgical Note
-
I have examined this patient prior to the performance of the scheduled procedure.
The patient's condition is unchanged from the time of the current History and
Physical and the patient is able to undergo the scheduled procedure.
[2025-02-04 09:13] LABS: ACT-LR - POC 263 Seconds (116-155)
[2025-02-04 10:22] LABS: Glucose - Point of Care 113 mg/dl (70-99)
--- NOTE | 2025-02-04 11:29 | OR.RPT ---
Operative Report
Operative Report
Date of Operation: 02/04/2025
Pre Op Diagnosis:
1. Chronic limb threatening ischemia left lower extremity
2. 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
3. Diabetes with peripheral arterial occlusive disease
4. Previous right below the knee amputation
5. Obesity
Post Op Diagnosis:
1. Chronic limb threatening ischemia left lower extremity
2. 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
3. Diabetes with peripheral arterial occlusive disease
4. Previous right below the knee amputation
5. Obesity
Procedure:
1.) Intravascular lithotripsy to left posterior tibial artery (2.5 mm x 80 mm shockwave)
2.) Balloon angioplasty and stenting of right posterior tibial artery (2.5 mm x 40 mm Anderson Esprit)
3.) Diagnostic left lower extremity arteriogram
4.) Ultrasound-guided percutaneous ANTEGRADE access to the left femoral artery
Surgeon: Mahendra Sandoval III, MD
Anesthesia: Sedation with local
Fluoroscopy:
37.8 min
84 mGy
15.13 gy.cm2
Complications: None
Estimated Blood Loss: Less than 20 cc
History and Indications for Procedure: 69-year-old female with limb threatening ischemia of her left lower extremity.
Procedure in Detail: Dang Aguiar was correctly identified and placed supine on the operating table. After adequate induction of anesthesia the bilateral groins were prepped and draped in the usual sterile fashion. A timeout was performed
with the nursing and anesthesia staff confirming the patient's identity as well as the nature and laterality of the procedure.
The left common femoral artery was identified under ultrasound guidance. The artery was patent. The superior and inferior aspects of the femoral head were identified with radiographic guidance and marked at the skin level. The proposed puncture site
was infiltrated with local anesthesia. Under ultrasound guidance we accessed the left common femoral artery in an antegrade direction at the SFA origin with a micropuncture needle and upsized to a 5 Fr sheath over a Bentson wire.
A diagnostic left lower extremity arteriogram was then performed which demonstrated the following:
LEFT LOWER EXTREMITY:
Superficial femoral artery: Diffuse peripheral calcification but no stenosis identified. Patent.
Popliteal artery: Patent with no significant stenosis identified
Anterior tibial artery: Patent short stump but occluded thereafter. Reconstituted distal anterior tibial artery and dorsalis pedis artery via peroneal artery collaterals.
Peroneal artery: Single vessel patent runoff. No stenosis identified.
Posterior tibial artery: Patent proximally with severe disease. Occluded distal. Possible faint reconstitution at the ankle. Severe plantar disease in the foot is identified.
ENDOVASCULAR INTERVENTION: Systemic heparin was administered. Exchanged out for a 5 Fr 45 cm sheath over a [employer] wire. The radiopaque tip was advanced to the popliteal artery behind the knee. Selected the posterior tibial artery under roadmap
guidance with Quickcross catheter and glidewire. The posterior tibial occlusion was crossed with a 0.014 Mongo wire and 0.014 Quickcross. The wire and catheter were advanced into the posterior tibial artery at the ankle and subtraction angio
confirmed position in the distal posterior tibial artery with patent branches towards the heel wound bed. A 1.5 mm x 20 angioplasty balloon ([employer]) was placed across the occluded posterior tibial artery segment and advanced to the ankle under
fluoroscopic guidance. The 1.5 mm angioplasty balloon was then used to establish a flow lumen across the occluded segment from the ankle to the mid calf. Multiple inflations were performed. I then followed this up with a 2 mm x 100 mm angioplasty
balloon across the entire occluded segment of posterior tibial artery. Following this we proceeded with intravascular lithotripsy on the posterior tibial artery. Due to the heavily calcified nature of the posterior tibial artery disease and in an
effort to modify the calcium to achieve maximum luminal gain with endovascular intervention I elected to proceed with intravascular lithotripsy. A 2.5 mm x 80 mm Shockwave balloon was advanced to the distal posterior tibial artery under roadmap
guidance. Alternating rounds of lithotripsy pulse delivery at sub-nominal pressure and angioplasty at nominal pressure was performed across the entire posterior tibial artery from the ankle to the origin. In between rounds of pulse delivery and
angioplasty the balloon was deflated and repositioned under roadmap guidance. All 400 pulses were delivered. Subsequent arteriogram demonstrated a significantly improved result with a now patent posterior tibial artery. At the area of previous
occlusion in the mid/distal posterior tibial artery there was an area of residual stenosis. This was treated with a 2.5 mm x 40 mm Anderson Esprit bioabsorbable stent. This was positioned under roadmap guidance in the desired location and deployed.
The entire posterior tibial artery was then postdilated with a 2.5 mm angioplasty balloon from the ankle to the origin. Multiple inflations were performed, each at nominal pressure and held in place for 2 minutes.
COMPLETION ARTERIOGRAM: Patent posterior tibial artery. Mild residual stenosis proximally. Flow seen throughout the posterior tibial artery which continues to branches at the heel supplying the wound bed. Significantly improved compared to
pretreatment.
Satisfied with this result we concluded the procedure. Protamine was administered. The sheath was pulled and direct manual pressure was held over the puncture site until hemostasis was achieved. A sterile dressing was applied.
The patient tolerated the procedure well and was taken to the recovery area in stable condition.
Signed:
Mahendra Sandoval III, MD
Vascular Surgery
[facility]
[2025-02-04] MEDS: PLAVIX 150 MG PO (11:52)
[2025-02-04 13:56] LABS: Glucose - Point of Care 100 mg/dl (70-99)
--- NOTE | 2025-02-04 15:36 | PTCARENOTE ---
Report called to Christian at [facility]. Patient and RN also reviewed discharge instructions. Patient to be discharged via wheelchair to [facility] via ambulance.
== END 2025-02-04 15:55 ==
LOC: CATH 06:22
PROVIDERS: ATTENDING PHYSICIAN Surgery Vascular Surgery; OTHER PHYSICIAN Internal Medicine Cardiovascular Disease; PRIMARYCARE PHYSICIAN Internal Medicine Geriatric Medicine
DX: E11.51 Type 2 diabetes mellitus with diabetic peripheral angiopathy without gangrene (principal); L97.429 Non-pressure chronic ulcer of left heel and midfoot with unspecified severity; I70.244 Atherosclerosis of native arteries of left leg with ulceration of heel and midfoot; Z79.4 Long term (current) use of insulin; Z79.01 Long term (current) use of anticoagulants; Z79.02 Long term (current) use of antithrombotics/antiplatelets; Z79.899 Other long term (current) drug therapy; Z89.511 Acquired absence of right leg below knee; E66.9 Obesity, unspecified; I25.2 Old myocardial infarction; Z86.73 Personal history of transient ischemic attack (TIA), and cerebral infarction without residual deficits
CPT/HCPCS: C9773; 75710; 80048; 82962; 85027; 85610; 85730; C1769; C1874; C1894; Q9967

== ENCOUNTER → 2025-03-03 10:31 | Outpatient (REF) | payer MEDICARE, OTHER, SELFPAY | LOC: RAD 10:31 | PROVIDERS: ATTENDING PHYSICIAN Surgery Vascular Surgery | DX: M62.262 Nontraumatic ischemic infarction of muscle, left lower leg (principal) | CPT/HCPCS: 93922; 93925 ==

== ENCOUNTER 2025-03-21 10:14 | Emergency (ER) | payer MEDICARE, OTHER, SELFPAY ==
--- NOTE | 2025-03-21 10:57 | ED.GENMED ---
History of Present Illness
General
Chief Complaint: Eye Problems
Time Seen by Provider: 03/21/25 10:57
History of Present Illness
History of Present Illness:
TIME OF INITIAL ENCOUNTER: 11 AM
HPI: Patient presents with painless vision loss to the right eye that started yesterday. 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 The patient is somewhat of a limited historian as she has a history of
expressive aphasia from prior stroke. I did speak to the daughter over the phone who is at work. She does confirm that she has an voice over announcer appointment later this week.
EXAM:
GENERAL: Well appearing in no distress
HEENT: Moist oral mucosa, the patient has light perception only to the right eye, there are no field cuts to the left eye
CARDIOVASCULAR: No murmurs, normal heart rate, regular rhythm, No chest wall tenderness
PULMONARY: No respiratory distress, breath sounds are clear and equal
ABDOMEN: Soft with no peritoneal signs, no tenderness
NEUROLOGIC: Facial asymmetry noted, some decreased strength on the right noted, expressive aphasia
PSYCHIATRIC: Appropriate mental status, normal insight and judgement
EXTREMITIES: Nontender, no edema, moves all extremities equally
SKIN: No rash, no lesions
NUMBER AND COMPLEXITY OF PROBLEMS ADDRESSED AT THE ENCOUNTER
� Chronic conditions affecting care: Has had embolic left MCA stroke/expressive aphasia with facial droop, dementia, A-fib on Eliquis, CAD
� Acute Exacerbation and/or Progression of Chronic Illness: This is an acute problem
� Differential Diagnosis includes: Amaurosis fugax, LVO, CRAO, CRVO, vitreous hemorrhage, retinal detachment
AMOUNT AND/OR COMPLEXITY OF DATA TO BE REVIEWED AND ANALYZED
� I performed an independent evaluation of and my interpretation is:
EKG:
CT: CTA shows no LVO/no dissection, no acute abnormality
X-rays:
Laboratory Studies: CBC and chemistries relatively unremarkable with exception of hyperglycemia
Other:
� Review of other/old records: I reviewed records, the patient had balloon angioplasty and stenting of the right posterior tibial artery about [address] Sandoval. Report from [place] showed ' proliferative diabetic
retinopathy OU status post anti-VEGF OD, had new vitreous hemorrhage in spring 2021 optic disc drusen OS followed by Dr. Hardin.
� Clinical information was obtained by an independent historian: I reviewed notes from [facility] as well as from the voice over announcer and I spoke to the daughter over the phone
� Prescriptions/Medications Considered but not given:
� Further testing considered but not performed:
RISK OF COMPLICATIONS AND/OR MORBIDITY OR MORTALITY OF PATIENT MANAGEMENT
� Social determinants of health affecting care: Resides at [facility]
� Discussion with other providers: I spoke to one of the ophthalmologists at her voice over announcer group and I also notified our voice over announcer on-call, Dr. Ziegler and Dr. Dela Cruz. No other treatment available/indicated at this
time.
� Escalation of care including admission/observation vs risk of discharge considered: CTA obtained which shows no acute abnormality. The patient is already on a statin, Eliquis, and Plavix she is to follow-up with her
voice over announcer this week.
ANY OTHER UPDATES:
Past History
Past History
ED Past Medical History: Arrthythmia (Atrial fibrillation), CAD, Cancer (Ovarian cancer in 2007), CVA (Facial weakness), GERD, Hypercholesterolemia, IDDM, [place], Psychiatric (Depression) and Other (Slight Dementia, DVT, PVD, UTI, Left foot ulcer,
anemia, )
ED Past Surgical History: Cardiac (Stents x 4), Cholecystectomy, Gynecological (Hysterectomy), Orthopedic (Bilateral rotator Cuff, laminectomy, Right hip replacement) and Other (IVC filter, Cataracts)
Social History
Tobacco: Non-smoker
Alcohol: None
Drug: None
Personal:
Living: longterm ([facility])
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
Phy Exam
Physical Exam
Physical Exam:
See HPI
Course
Orders/Labs/Results
Orders:
Orders
03/21/25 11:33
CT Head & Neck Angio W/wo IV Urgent
Comment:
Reason For Exam: painless vision loss R eye
03/21/25 11:50
Complete Blood Count/With Diff Urgent
Comprehensive Metabolic Panel Urgent
Abnormal Lab Results
03/21/25
11:50
RBC 4.10 L 10^6/uL
(4.20-5.40)
Hgb 11.4 L g/dL
(12.0-16.0)
Hct 35.1 L %
(37.0-47.0)
MCHC 32.5 L g/dL
(33.0-37.0)
Absolute Lymphs (auto) 1.1 L 10^3/uL
(1.2-3.4)
Lymphocytes % 19.9 L %
(20.5-51.1)
Sodium 133 L mmol/L
(135-145)
Creatinine 0.4 L mg/dL
(0.6-1.0)
Glucose 321 H mg/dl
(70-99)
03/21/25 11:50
03/21/25 11:50
Vital Signs
Initial and Last Documented VS:
Initial Vital Signs
Temp Pulse Resp BP Pulse Ox
36.6 C 80 18 134/69 100
03/21/25 11:33 03/21/25 11:33 03/21/25 11:33 03/21/25 11:33 03/21/25 11:33
Last Documented Vital Signs
Temp Pulse Resp BP Pulse Ox
36.6 C 80 18 134/69 100
03/21/25 11:33 03/21/25 11:33 03/21/25 11:33 03/21/25 11:33 03/21/25 11:33
*Critical Care Note
Total Time (30-74mins, 75-104mins- exclusive of procedures): Not Applicable
ED Attending Note
-
Portions of this chart may have been created with voice recognition software.� Occasional wrong word or��sound alike� substitutions may have occurred due to the inherent limitations of voice recognition software.
Discharge Plan
Departure
Patient Disposition: Home (Routine Discharge)
Date of Disposition: 03/21/25
Time of Disposition: 13:44
Patient with high blood pressure during this ER visit?: Yes
Discharge Problem:
Loss, vision, sudden
Prescriptions:
No Action
acetaminophen [Tylenol] 325 mg Tablet
650 mg PO Q4H MDD 3000 mg
insulin glargine [Lantus U-100 Insulin] 100 unit/mL Solution
20 unit SC HS
metoprolol succinate 50 mg Tablet Extended Release 24 Hr
50 mg PO DAILY
polyvinyl alcohol [Artificial Tears (polyvin alc)] 1.4 % Drops
1 drp OPHTHALMIC (EYE) TID PRN (Reason: dry eyes)
Patient Comments:
magnesium hydroxide [Milk of Magnesia] 400 mg/5 mL Suspension
2,400 mg PO HS PRN (Reason: lack of BM)
bisacodyl [Dulcolax (bisacodyl)] 10 mg Suppository
10 mg KY Q3D PRN (Reason: No BM and MOM ineffective)
nitroglycerin [Nitrostat] 0.4 mg Tablet, Sublingual
0.4 mg SUBLINGUAL Q5M PRN (Reason: Chest pain)
Patient Comments:
.
epinephrine 0.3 mg/0.3 mL Auto-Injector
0.3 mg IM ONCE PRN (Reason: anaphylaxis)
Patient Comments:
.
rosuvastatin 20 mg Tablet
20 mg PO HS
Patient Comments:
medications verified via phone call to Elijah Wolff.
Eliquis 5 mg Tablet
5 mg PO BID
Patient Comments:
medications verified via phone call to Elijah Wolff.
cholecalciferol (vitamin D3) [Vitamin D3] 125 mcg (5,000 unit) Tablet
250 mcg PO MONTHLY
clopidogrel 75 mg Tablet
75 mg PO DAILY Qty: 90 0RF
pantoprazole 40 mg Tablet,Delayed Release (Dr/Ec)
40 mg PO DAILY Qty: 90 0RF
Referrals:
NONE,* [Family Provider, Internal Medicine]
Activity Restrictions/Additional Instructions:
White blood cell count is normal. Hemoglobin is slightly low 11.4, chemistries are okay except the glucose is 321 (high). The CAT scan of the brain shows no acute abnormality. The CTA of the head and neck showed no large vessel occlusion, no
carotid, no flow-limiting focal stenosis. A moderate amount of calcified plaque was also noted. Follow-up with the voice over announcer. I did speak to your daughter earlier.
Interventions
Interventions:
*Risk Screen - Suicide Last Done: 03/21/25 10:21
*General Assessment Last Done: 03/21/25 10:21
*Neglect/Abuse Screening Last Done: 03/21/25 10:21
*ED COVID-19 Vaccine History Last Done: 03/21/25 10:21
Discharge Date and Time
Print Language: DJIBOUTIAN
[2025-03-21 11:33] VITALS: BP 134/69
[2025-03-21 12:02] LABS: % Basophils 0.5 % (0-2); % Eosinophils 1.6 % (0-6); % Immature Granulocytes 0.2 % (0-0.5); % Lymphocytes 19.9 % (20.5-51.1); % Monocytes 8.7 % (1.7-9.3); % Neutrophils 69.1 % (42.2-75.2); Absolute Eosinophils 0.1 10^3/uL (0-0.7); Absolute Lymphocytes 1.1 10^3/uL (1.2-3.4); Absolute Monocytes 0.5 10^3/uL (0.1-0.6); Absolute Neutrophils 3.8 10^3/uL (1.4-6.5); Hematocrit 35.1 % (37.0-47.0); Hemoglobin 11.4 g/dL (12.0-16.0); Mean Corp Hgb Conc. 32.5 g/dL (33.0-37.0); Mean Corpuscular Hgb 27.8 pg (27.0-31.0); Mean Corpuscular Volume 85.6 fL (81.0-99.0); Nucleated Red Blood Cells % 0 %; Platelet Count 230 10^3/uL (130-400); Red Cell Dist. Width 14.4 % (11.5-14.5); White Blood Cell Count 5.5 10^3/uL (4.8-10.8)
[2025-03-21 12:13] LABS: ALT (SGPT) 24 U/L (0-35); AST (SGOT) 33 U/L (14-36); Albumin 4.1 g/dl (3.5-5.0); Alkaline Phosphatase 48 U/L (38-126); Blood Urea Nitrogen 13 mg/dl (7-17); Calcium 8.9 mg/dl (8.4-10.2); Carbon Dioxide 29 mmol/L (22-30); Chloride 99 mmol/L (98-107); Glucose 321 mg/dl (70-99); Potassium 4.6 mmol/L (3.5-5.1); Sodium 133 mmol/L (135-145); Total Bilirubin 0.6 mg/dl (0.2-1.3); Total Protein 6.7 g/dl (6.3-8.2); eGFR > 60.00
[2025-03-21 15:11] VITALS: BP 142/82
== END 2025-03-21 18:22 | disposition home or self-care (01) ==
LOC: EMR 10:14
PROVIDERS: EMERGENCY PHYSICIAN Emergency Medicine
DX: H54.7 Unspecified visual loss (principal); E11.319 Type 2 diabetes mellitus with unspecified diabetic retinopathy without macular edema; E78.00 Pure hypercholesterolemia, unspecified; I25.10 Atherosclerotic heart disease of native coronary artery without angina pectoris; I48.91 Unspecified atrial fibrillation; I69.320 Aphasia following cerebral infarction; Z86.718 Personal history of other venous thrombosis and embolism; Z90.49 Acquired absence of other specified parts of digestive tract; Z90.710 Acquired absence of both cervix and uterus; Z95.5 Presence of coronary angioplasty implant and graft
CPT/HCPCS: 99284; 70496; 70498; 80053; 85025; Q9967

== ENCOUNTER → 2025-04-07 09:14 | Outpatient (REF) | payer MEDICARE, OTHER, SELFPAY ==
[2025-04-07 10:38] LABS: Blood Urea Nitrogen 13 mg/dl (7-17); Calcium 9.3 mg/dl (8.4-10.2); Carbon Dioxide 31 mmol/L (22-30); Chloride 101 mmol/L (98-107); Glucose 116 mg/dl (70-99); Potassium 4.9 mmol/L (3.5-5.1); Sodium 138 mmol/L (135-145); eGFR > 60.00
[2025-04-07 14:04] LABS: Glycohemoglobin (HgbA1c) 9.2 % (4.0-5.6)
== END ==
LOC: OLABN 09:14
PROVIDERS: ATTENDING PHYSICIAN Internal Medicine Geriatric Medicine
DX: E11.9 Type 2 diabetes mellitus without complications (principal)
CPT/HCPCS: 36415; 80048; 83036

== ENCOUNTER → 2025-07-07 12:10 | Outpatient (REF) | payer MEDICARE, OTHER, SELFPAY ==
[2025-07-07 12:37] LABS: Hematocrit 36.9 % (37.0-47.0); Hemoglobin 11.9 g/dL (12.0-16.0); Mean Corp Hgb Conc. 32.2 g/dL (33.0-37.0); Mean Corpuscular Volume 85.0 fL (81.0-99.0); Platelet Count 258 10^3/uL (130-400); Red Cell Dist. Width 15.1 % (11.5-14.5)
[2025-07-07 13:30] LABS: Vitamin D, 25-OH*** 47.3 ng/mL (30-80)
[2025-07-07 13:39] LABS: ALT (SGPT) 16 U/L (0-35); AST (SGOT) 22 U/L (14-36); Albumin 4.1 g/dl (3.5-5.0); Alkaline Phosphatase 57 U/L (38-126); Blood Urea Nitrogen 17 mg/dl (7-17); Calcium 9.3 mg/dl (8.4-10.2); Carbon Dioxide 28 mmol/L (22-30); Chloride 100 mmol/L (98-107); Glucose 161 mg/dl (70-99); HDL Cholesterol 45 mg/dl; LDL Cholesterol, Calculated 60 mg/dl; Potassium 4.7 mmol/L (3.5-5.1); Sodium 135 mmol/L (135-145); Total Protein 7.0 g/dl (6.3-8.2); Very Low Density Lipoprotein 18 mg/dl (0-30); eGFR > 60.00
== END ==
LOC: OLABN 12:10
PROVIDERS: ATTENDING PHYSICIAN Internal Medicine Geriatric Medicine
DX: E11.9 Type 2 diabetes mellitus without complications (principal); E78.5 Hyperlipidemia, unspecified; E55.9 Vitamin D deficiency, unspecified
CPT/HCPCS: 80053; 80061; 82248; 82306; 85027

== ENCOUNTER → 2025-07-26 14:15 | Outpatient (REF) | payer MEDICARE, OTHER, SELFPAY | LOC: RAD 14:15 | PROVIDERS: ATTENDING PHYSICIAN Registered Nurse; FAMILY PHYSICIAN Internal Medicine Geriatric Medicine | DX: I73.9 Peripheral vascular disease, unspecified (principal) | CPT/HCPCS: 93922; 93926 ==

== ENCOUNTER → 2025-08-04 13:26 | Outpatient (REF) | payer MEDICARE, OTHER, SELFPAY ==
[2025-08-04 14:26] LABS: Glycohemoglobin (HgbA1c) 8.9 % (4.0-5.6)
== END ==
LOC: OLABN 13:26
PROVIDERS: ATTENDING PHYSICIAN Internal Medicine Geriatric Medicine
DX: E11.9 Type 2 diabetes mellitus without complications (principal)
CPT/HCPCS: 36415; 83036

== ENCOUNTER 2025-09-06 08:30 | Day surgery (SDC) | payer MEDICARE, OTHER, SELFPAY ==
[2025-09-06] VITALS (13 sets, daily range): BP systolic 107–150; BP diastolic 53–83; BMI 28.4
[2025-09-06 09:06] LABS: Hematocrit 37.4 % (37.0-47.0); Hemoglobin 12.1 g/dL (12.0-16.0); Mean Corp Hgb Conc. 32.4 g/dL (33.0-37.0); Mean Corpuscular Volume 84.2 fL (81.0-99.0); Platelet Count 264 10^3/uL (130-400); Red Cell Dist. Width 14.6 % (11.5-14.5)
[2025-09-06 09:07] LABS: INR 1.14; PT 15.0 Sec (11.4-14.6)
[2025-09-06 09:08] LABS: APTT 32.1 Sec (23.4-35.0)
[2025-09-06 09:17] LABS: Blood Urea Nitrogen 13 mg/dl (7-17); Calcium 9.4 mg/dl (8.4-10.2); Carbon Dioxide 31 mmol/L (22-30); Chloride 96 mmol/L (98-107); Estimated Creatinine Clearance 100 ml/min; Glucose 179 mg/dl (70-99); Potassium 4.5 mmol/L (3.5-5.1); Sodium 136 mmol/L (135-145); eGFR > 60.00
[2025-09-06 13:42] LABS: Glucose - Point of Care 158 mg/dl (70-99)
[2025-09-06] MEDS: NSS 1000 IV (14:43)
--- NOTE | 2025-09-06 14:50 | OR.RPT ---
Operative Report
Operative Report
Date of Operation: 09/06/2025
Pre Op Diagnosis:
1. Limb threatening ischemia left lower extremity manifested by nonhealing left medial heel wound
2. Lower [place] artery atherosclerosis with nonhealing ulceration left foot
3. Prior right below the knee amputation
Post Op Diagnosis:
1. Limb threatening ischemia left lower extremity manifested by nonhealing left medial heel wound
2. [place] artery atherosclerosis with nonhealing ulceration left foot
3. Prior right below the knee amputation
Procedure:
1. Intravascular lithotripsy to left anterior tibial artery occlusion using Shockwave Javelin
2. Balloon angioplasty of left anterior tibial artery occlusion (3 mm x 220 mm)
3. Diagnostic left lower extremity arteriogram
4. Ultrasound-guided percutaneous ANTEGRADE access to the left superficial femoral artery origin
5. Ultrasound-guided RETROGRADE pedal access to the left distal anterior tibial artery
Surgeon: Mahendra Sandoval III, MD
Credit Office Manager: Vivien Rae MD PGY2
Anesthesia: Sedation with local
Fluoroscopy:
27.6 min
66 mGy
9.14 gy.cm2
Complications: None
Estimated Blood Loss: Less than 20 cc
History and Indications for Procedure: 70-year-old female with known peripheral arterial occlusive disease and nonhealing left medial heel wound.
Procedure in Detail: Dang Aguiar was correctly identified and placed supine on the operating table. After adequate induction of anesthesia the bilateral groins were prepped and draped in the usual sterile fashion. A time out was performed
with the nursing and anesthesia staff confirming the patient's identity as well as the nature and laterality of the procedure.
The left common femoral artery was identified under ultrasound guidance along with the superficial femoral artery origin. The artery was patent. The superior and inferior aspects of the femoral head were identified with radiographic guidance and
marked at the skin level. The proposed puncture site was infiltrated with local anesthesia. Under ultrasound guidance we accessed the left superficial femoral artery at its origin with a micropuncture needle and upsized to a 5 Fr sheath over a
Bentson wire. A diagnostic left lower extremity arteriogram was then performed which demonstrated the following:
LEFT LOWER EXTREMITY:
Superficial femoral artery: Peripherally calcified diffusely. Patent with no stenosis identified
Popliteal artery: Peripherally calcified. Patent. Mild smooth focal stenosis behind the knee. Below the knee segment patent with no stenosis identified
Anterior tibial artery: Patent stump but occluded thereafter. Reconstitutes via peroneal artery collaterals at the ankle. Continues into the foot to form the dorsalis pedis artery. DP is patent with retrograde flow through the arch to plantar
branches.
Tibioperoneal trunk: Patent
Peroneal artery: Patent as the lone tibial artery runoff vessel. No stenosis identified. Branches at the ankle perfused the left heel.
Posterior tibial artery: Occluded with no meaningful distal reconstitution. Diseased plantar branches.
Significant small vessel disease is identified in the plantar distribution.
ENDOVASCULAR INTERVENTION: Systemic heparin was administered. Selected the anterior tibial stump artery under roadmap guidance with a Quickcross and Glidewire. Could not adequately engage the AT stump nor could be advance wire through the AT
occlusion. Therefore made the decision to approach from retrograde pedal access. The left foot and ankle were prepped and draped in the usual sterile fashion. Under ultrasound guidance I identified the distal anterior tibial artery at the ankle.
I successfully accessed the distal anterior tibial artery in a retrograde fashion with a micropuncture needle under ultrasound guidance and then placed the pedal access sheath. Radial artery cocktail was administered. Using a 0.014 Quickcross and
0.014 Mongo wire I successfully navigated retrograde through the anterior tibial artery occlusion. I advanced the wire and catheter through the anterior tibial artery into the popliteal artery. We then snared the 0.014 wire from the left femoral
access and established through and through femoral-pedal wire access.
Due to the heavily calcified nature of the anterior tibial disease and in an effort to successfully cross the occlusion, modify the calcium and achieve luminal gain with endovascular intervention I elected to proceed with intravascular lithotripsy
with a Shockwave Javelin catheter. The Javelin catheter was brought into position from the left femoral sheath under radiographic guidance over the 0.014 wire. The Javelin catheter was advanced through the anterior tibial artery occlusion while
simultaneously delivering lithotripsy pulses. 120 pulses were delivered. I then followed this with 3 mm x 220 mm angioplasty balloon. The entire length of anterior tibial artery occlusion was treated with this balloon. The balloon was inflated to
nominal pressure and held in place for 4 minutes. Subsequent arteriogram demonstrated an excellent technical result with a now widely patent anterior tibial artery, brisk flow and no residual stenosis identified. Flow into the foot was
demonstrated through the dorsalis pedis artery, pedal arch and retrograde flow through the plantar branches towards the heel was identified.
Satisfied with this result we concluded the procedure. Protamine was administered. The femoral and retrograde pedal access sheaths were removed. Direct manual pressure was held over both puncture sites until hemostasis was achieved. Sterile
dressings were applied. At the conclusion of the case the patient had an easily palpable dorsalis pedis pulse in the left foot.
The patient tolerated the procedure well and was taken to the recovery area in stable condition.
Attestation: I was present and responsible for the entire procedure.
Signed:
Mahendra Sandoval III, MD
Vascular Surgery
[facility]
[2025-09-06] MEDS: NOVOLOG FLEXPEN-LOW RESISTANCE 1 UNITS SC (15:48)
[2025-09-06 15:54] LABS: Glucose - Point of Care 191 mg/dl (70-99)
== END 2025-09-06 18:37 | disposition home or self-care (01) ==
LOC: CATH 08:30
PROVIDERS: ATTENDING PHYSICIAN Surgery Vascular Surgery; OTHER PHYSICIAN Internal Medicine Cardiovascular Disease; PRIMARYCARE PHYSICIAN Internal Medicine Geriatric Medicine
DX: E11.51 Type 2 diabetes mellitus with diabetic peripheral angiopathy without gangrene (principal); L97.429 Non-pressure chronic ulcer of left heel and midfoot with unspecified severity; I70.244 Atherosclerosis of native arteries of left leg with ulceration of heel and midfoot; Z79.4 Long term (current) use of insulin; I25.2 Old myocardial infarction; Z95.5 Presence of coronary angioplasty implant and graft; I48.21 Permanent atrial fibrillation; I25.5 Ischemic cardiomyopathy; Z86.73 Personal history of transient ischemic attack (TIA), and cerebral infarction without residual deficits; Z89.511 Acquired absence of right leg below knee; Z88.0 Allergy status to penicillin
CPT/HCPCS: C9772; C1725; 75710; 80048; 82962; 85027; 85610; 85730; 93005; C1769; C1894; Q9967

== ENCOUNTER → 2025-09-28 10:28 | Outpatient (REF) | payer MEDICARE, OTHER, SELFPAY | LOC: RAD 10:28 | PROVIDERS: ATTENDING PHYSICIAN Surgery Vascular Surgery; FAMILY PHYSICIAN Internal Medicine | DX: I73.9 Peripheral vascular disease, unspecified (principal) | CPT/HCPCS: 93922; 93925 ==

== ENCOUNTER → 2025-10-06 09:34 | Outpatient (REF) | payer MEDICARE, OTHER, SELFPAY ==
[2025-10-06 11:59] LABS: Blood Urea Nitrogen 14 mg/dl (7-17); Calcium 9.1 mg/dl (8.4-10.2); Carbon Dioxide 30 mmol/L (22-30); Chloride 98 mmol/L (98-107); Glucose 118 mg/dl (70-99); Potassium 4.9 mmol/L (3.5-5.1); Sodium 133 mmol/L (135-145); eGFR > 60.00
== END ==
LOC: OLABN 09:34
PROVIDERS: ATTENDING PHYSICIAN Internal Medicine Geriatric Medicine
DX: E11.9 Type 2 diabetes mellitus without complications (principal)
CPT/HCPCS: 36415; 80048